=== PATIENT | female | born 1995 | race Caucasian/White ===

== ENCOUNTER 2022-11-01 08:00 | Outpatient (NON) | payer OTHER, SELFPAY | END 2022-11-01 08:01 | disposition home or self-care (01) | LOC: ANHLAB 11-02 07:31 | PROVIDERS: PCP Physician Assistant; Visit Provider Internal Medicine Gastroenterology | DX: K59.00 Constipation, unspecified (principal); K63.5 Polyp of colon | CPT/HCPCS: 88305 ==

== ENCOUNTER 2022-11-01 10:59 | Day surgery (SDC) | payer OTHER, SELFPAY ==
[2022-08-16 09:43] VITALS: BMI 32.9
[2022-10-17 09:44] VITALS: BMI 33.5
--- NOTE | 2022-10-31 08:44 | P.PNAN_ITS ---
Anes - Initial Pre Proc Eval Procedure: Operation Date: 11/01/22 12:30 Proposed Procedures p Diagnostic Colonoscopy - Mushtaq Ridley MD Date/Time: 10/31/22 08:44 Surgeon: Mushtaq Ridley MD Pre Op Diagnosis: Constipation Patient Data Age: 27 Gender: F Height: 1.6 m Weight: 86 kg Allergies Allergy/AdvReac Type Severity Reaction Status Date / Time No Known Allergies Allergy Verified 11/01/22 11:13 Home Medications Medication Instructions Recorded Confirmed Type atorvastatin 10 mg tablet 10 mg PO DAILY 10/17/22 11/01/22 History fluoxetine 20 mg capsule 20 mg PO DAILY 10/17/22 11/01/22 History levonorgestrel 0.15 mg-ethinyl 1 tablet PO DAILY 10/17/22 11/01/22 History estradiol 30 mcg tablets,3 mos pack(91) spironolactone 100 mg tablet 100 mg PO DAILY 10/17/22 11/01/22 History Patient hx anesthesia problems: none Family hx anesthesia problems: none Results Review: All pre-operative results and documents have been reviewed as part of the pre-operative evaluation. [facility] Past Medical History Medical History Depression Hyperlipidemia Social History Social History Smoking status: Never smoker Alcohol intake: current Substance use: never Substance use type: does not use Living arrangements: with family Spiritual care concerns: No Anes - Eval Final PreProcedure Day of Procedure 10/31/22 08:44 Patient weight: obese Heart: regular rate and rhythm Lungs: clear to auscultation Airway: Mallampati scale class II Neurological: alert and oriented Last oral intake: >/= 8 hours ASA classification: II Emergent: no Anesthetic plan: proceed Anesthesia type and monitoring: general GIVS and standard monitoring Results Review: All pre-operative results and documents have been reviewed as part of the pre- operative evaluation. Informed Consent: The patient's anesthetic plan and its attendant risks and benefits were discussed with the patient/family/POA. Questions were solicited and answers provided to the satisfaction of the patient/family/POA.
[2022-11-01 11:26] VITALS: BP 133/91; PULSE 104; RESP 18; TEMP 36.2; O2SAT 97; BMI 33.0
[2022-11-01] MEDS: LACTATED RINGERS 1,000 ML 150 ML IV CONT (11:51)
--- NOTE | 2022-11-01 12:03 | PM.HPGS ---
History of Present Illness History of Present Illness Consent: Risks, benefits, and alternatives have been discussed and questions answered. Patient agrees to proceed with procedure. Chief complaint: Constipation Narrative: Maddie Renee is a 27 year old female Was been having a great deal of difficulty with her bowels. Because of severe constipation she was taking MiraLax which did not help. She was then given Linzess, but that caused diarrhea. More recently she has been started on Trulance. Breakfast usually consists of a waffle or sometimes an omelet. Review of Systems Review of Systems: All systems reviewed & are unremarkable except as noted in HPI and below PMFSH Past Medical History Medical History Depression Hyperlipidemia Social History Social History Smoking status: Never smoker Alcohol intake: current Substance use: never Substance use type: does not use Living arrangements: with family Spiritual care concerns: No Meds Home Medications and Allergies Home Medications Medication Instructions Recorded Confirmed Type atorvastatin 10 mg tablet 10 mg PO DAILY 10/17/22 11/01/22 History fluoxetine 20 mg capsule 20 mg PO DAILY 10/17/22 11/01/22 History levonorgestrel 0.15 mg-ethinyl 1 tablet PO DAILY 10/17/22 11/01/22 History estradiol 30 mcg tablets,3 mos pack(91) spironolactone 100 mg tablet 100 mg PO DAILY 10/17/22 11/01/22 History Allergies Allergy/AdvReac Type Severity Reaction Status Date / Time No Known Allergies Allergy Verified 11/01/22 11:13 Vital Signs Vital Signs - 24 hr 11/01/22 11:26 Temperature 36.2 C L Pulse Rate 104 H Respiratory Rate 18 Blood Pressure 133/91 H Pulse Oximetry 97 Oxygen Delivery Room Air Exam Const: General: alert Orientation/consciousness: patient oriented x3 Resp: Auscultation: clear to auscultation bilaterally Cardio: Rhythm: regular rhythm GI: GI Palp: Yes Soft to palpation and No Tenderness to palpation present (GI) Neuro: General: patient oriented x3 Assessment and Plan Assessment and plan (1) Constipation: Code(s): K59.00 - Constipation, unspecified Status: Acute Assessment and Plan: Colonoscopy with possible biopsy or polypectomy or cautery or injection of substances.
[2022-11-01 12:46] VITALS: BP 103/82; PULSE 79; RESP 16; O2SAT 100
[2022-11-01 12:56] VITALS: BP 115/77; PULSE 67; RESP 16; O2SAT 100
--- NOTE | 2022-11-01 13:04 | SUR.PHASEII ---
PT AWAKE AND ALERT. DRINKING WATER.
[2022-11-01 13:06] VITALS: BP 102/76; PULSE 65; RESP 16; O2SAT 100
--- NOTE | 2022-11-01 13:43 | WPDANESPN ---
Anes - Prog Note Post-Op Date/Time: 11/01/22 13:43 Cardiovascular status: normal Respiratory status: normal Airway patency: baseline Mental status: baseline Post-Op hydration status: normal Vital Signs: Last Vital Signs Temp 36.2 C L 11/01/22 11:26 Pulse 65 11/01/22 13:06 Resp 16 11/01/22 13:06 BP 102/76 11/01/22 13:06 Pulse Ox 100 11/01/22 13:06 O2 Del Method Room Air 11/01/22 13:06 Pain Score (VAS): 0 I/O: Intake & Output 10/31/22 11/01/22 11/01/22 23:59 07:59 15:59 Intake Total 600 Balance 600 Post-procedural complaints: none Patient Feedback: Patient satisfied with anesthetic care. Other Findings: Patient vital signs back to baseline. Patient denies nausea and vomiting. Patient's pain under control. Patient OK for discharge.
== END 2022-11-01 13:10 | disposition home or self-care (01) ==
PROVIDERS: PCP Physician Assistant; Visit Provider Internal Medicine Gastroenterology
PROC: 0DJD8ZZ Inspection of Lower Intestinal Tract, Via Natural or Artificial Opening Endoscopic (ICD-10-PCS; CPT 45378; principal; 2022-11-01 12:30)
DX: K59.00 Constipation, unspecified (principal)
CPT/HCPCS: 45380

== ENCOUNTER 2023-02-17 12:19 | Emergency (ER) | payer OTHER, SELFPAY ==
--- NOTE | 2023-02-17 12:30 | ED.ANIMALBIT ---
HPI - Animal Bite General Chief Complaint: Animal Bite Stated Complaint: Dog Bite Time Seen by Provider: 02/17/23 13:41 Source: patient and RN notes reviewed Mode of arrival: ambulatory Limitations: no limitations History of Present Illness HPI narrative: 27-year-old female presents with concern for dog bite. Reports her mom's dog bit her on her right 1st digit on Saturday. She reports the area has become tender, red, swollen, painful to bend. She reports she had a small amount of purulent drainage from it today. MD complaint: animal bite Related Data Home Medications Medication Instructions Recorded Confirmed atorvastatin 10 mg tablet 10 mg PO DAILY 10/17/22 02/17/23 fluoxetine 20 mg capsule 20 mg PO DAILY 10/17/22 02/17/23 levonorgestrel 0.15 mg-ethinyl 1 tablet PO DAILY 10/17/22 02/17/23 estradiol 30 mcg tablets,3 mos pack(91) spironolactone 100 mg tablet 100 mg PO DAILY 10/17/22 02/17/23 Allergies Allergy/AdvReac Type Severity Reaction Status Date / Time No Known Allergies Allergy Verified 02/17/23 12:59 Review of Systems Review of Systems: CONSTITUTIONAL: Denies malaise, chills, sweats, or fever. RESPIRATORY: Denies cough or dyspnea. SKIN: Reports puncture wound from dog bite to the 1st digit of the right hand with redness, swelling, tenderness MUSCULOSKELETAL: Reports pain in the 1st digit of the right hand All systems reviewed & are unremarkable except as noted in HPI and below PMFSH Past Medical History Medical History Depression Hyperlipidemia Social History Social History Smoking status: Never smoker Alcohol intake: current Substance use: never Substance use type: does not use Living arrangements: with family Spiritual care concerns: No Comments At time of signature, agree with nursing past medical, surgical, social and family history. There is no relevant family history pertinent to the presenting complaint Exam Narrative: GENERAL: Well-appearing, well-nourished, and in no acute distress. HEAD: Normocephalic, atraumatic. EYES: PERRLA, conjunctivae clear ENT: Mucous membranes moist. NECK: Supple. No lymphadenopathy CHEST: Clear to auscultation. No respiratory distress. HEART: Regular rate and rhythm. SKIN: Warm, dry. Puncture wound noted to the dorsal aspect and the palmar aspect of the 1st digit of the right hand with surrounding erythema, edema, mild induration, no discharge noted NEURO: Alert and oriented x3. PSYCH: Normal mood and affect Course Course Emergency Course: Patient is aware of diagnosis, understands and agrees to treatment plan. Anticipatory guidance given. Patient agrees to follow-up as directed and is aware of reasons to seek care at the emergency department. Portions of this record may have been created with voice recognition software Level of Care: Express Care Visit Vital Signs Vital signs: Vital Signs Temperature 98.8 F 02/17/23 13:03 Pulse Rate 94 02/17/23 13:03 Respiratory Rate 18 02/17/23 13:03 Blood Pressure 124/84 02/17/23 13:03 Pulse Oximetry 98 02/17/23 13:03 Oxygen Delivery Room Air 02/17/23 13:03 Temperature 98.8 F 02/17/23 13:03 Pulse Rate 94 02/17/23 13:03 Respiratory Rate 18 02/17/23 13:03 Blood Pressure 124/84 02/17/23 13:03 Pulse Oximetry 98 02/17/23 13:03 Oxygen Delivery Room Air 02/17/23 13:03 Reviewed. MDM - Animal Bite MDM Narrative Medical decision making narrative: Exam findings show no acute concerns or changes; patient is non-toxic appearing and is in no distress. Patient is appropriate for outpatient treatment and follow-up. Differential Diagnosis Differential diagnosis: Likely dog bite and rabies contact Critical Care Time Critical Care Time Critical Care Time: No Discharge Plan Discharge Clinical Impression: Dog bite of right hand with infection
[2023-02-17 13:03] VITALS: BP 124/84; PULSE 94; RESP 18; TEMP 37.1; O2SAT 98
== END 2023-02-17 13:52 | disposition home or self-care (01) ==
PROVIDERS: Emergency Provider Nurse Practitioner; PCP Physician Assistant
DX: S61.051A Open bite of right thumb without damage to nail, initial encounter (principal); L08.9 Local infection of the skin and subcutaneous tissue, unspecified; W54.0XXA Bitten by dog, initial encounter; F32.A Depression, unspecified; E78.5 Hyperlipidemia, unspecified
CPT/HCPCS: 99213; G0463

== ENCOUNTER 2023-09-12 15:58 | Emergency (ER) | payer OTHER, SELFPAY ==
--- NOTE | 2023-09-12 16:06 | ED.URI ---
HPI - URI/Sore Throat General Chief Complaint: Upper Respiratory Infection Stated Complaint: cough,upper back pain Time Seen by Provider: 09/12/23 16:15 Source: patient, RN notes reviewed and old records reviewed Mode of arrival: ambulatory Limitations: no limitations History of Present Illness HPI Narrative: 27-year-old female presents to the [facility] with cough x2 weeks. States she had a coughing fit yesterday and comes pain Denies fevers, chest pain. Denies States that she has tried several [id number] products with no relief. Related Data Home Medications Medication Instructions Recorded Confirmed atorvastatin 10 mg tablet 10 mg PO DAILY 10/17/22 09/12/23 fluoxetine 20 mg capsule 20 mg PO DAILY 10/17/22 09/12/23 levonorgestrel 0.15 mg-ethinyl 1 tablet PO DAILY 10/17/22 09/12/23 estradiol 30 mcg tablets,3 mos pack(91) spironolactone 100 mg tablet 100 mg PO DAILY 10/17/22 09/12/23 Allergies Allergy/AdvReac Type Severity Reaction Status Date / Time No Known Allergies Allergy Verified 02/17/23 12:59 Review of Systems Review of Systems: All systems reviewed & are unremarkable except as noted in HPI and below Constitutional: Constitutional: Reports no additional constitutional complaints Eyes: Eyes: Reports no additional eye complaints ENT: Reports system reviewed and no additional complaints, except as documented Cardiovascular: Cardiovascular: Reports no additional cardiovascular complaints, Denies chest pain and Denies dyspnea Respiratory: Respiratory: Reports as per HPI, Denies chest congestion, Reports cough and Denies dyspnea Gastrointestinal: Gastrointestinal: Reports no additional gastrointestinal complaints, Denies abdominal pain, Denies nausea and Denies vomiting Musculoskeletal: Musculoskeletal: Reports no additional musculoskeletal complaints Integumentary/Breasts: Skin/Breast: Reports system reviewed and no additional complaints, except as docu Neurologic: Reports system reviewed and no additional complaints, except as documented Psychiatric: Psychiatric: Reports no additional psychiatric complaints Allergic/Immunologic: Allergic/Immunologic: Reports no additional allergic/immunologic complaints PMFSH Past Medical History Medical History Depression Hyperlipidemia Social History Social History Smoking status: Never smoker Alcohol intake: current Substance use: never Substance use type: does not use Living arrangements: with family Spiritual care concerns: No Comments At the time of my signature, I reviewed and agree with the nursing past medical, surgical, social, and family history. There is no relevant family history pertinent to the patient complaint. Exam Const: General: cooperative, healthy appearing, comfortable, no acute distress, well developed, alert and well nourished Nutritional Appearance: well nourished and obese Orientation/consciousness: patient oriented x3 Limitations: no limitations HENMT: Head: normal to inspection Ears: hearing grossly normal bilaterally, external ears normal, TM's normal bilaterally, EAC's normal, mastoids normal and no periauricular adenopathy Face/Nose/Sinus: Normal external nose present, Normal nares present, Normal nasal mucous membranes and turbinates present, normal facial exam and face symmetric Face and sinus: normal facial exam and face symmetric Mouth: Yes Normal oral and palatal mucosa present, Yes lip normal and Yes moist mucous membranes Throat: posterior oropharynx normal, uvula midline and postnasal drainage Eyes: General: appearance normal, both eyes and all related structures Alignment and Position: alignment normal Periorbital: periorbital findings normal Pupils: Equal, round and reactive pupils present EOM: EOMs intact bilaterally Neck: Neck: normal visual inspection, full ROM, no lymphadenopa
[2023-09-12 16:18] VITALS: BP 133/87; PULSE 110; RESP 16; TEMP 37.3; O2SAT 99
== END 2023-09-12 16:44 | disposition home or self-care (01) ==
PROVIDERS: Emergency Provider Nurse Practitioner; PCP Physician Assistant
DX: J40 Bronchitis, not specified as acute or chronic (principal); E78.5 Hyperlipidemia, unspecified; Z79.899 Other long term (current) drug therapy
CPT/HCPCS: 99211; G0463

== ENCOUNTER 2023-12-07 10:01 | Emergency (ER) | payer OTHER, SELFPAY ==
[2023-12-07 10:20] VITALS: BP 127/90; PULSE 101; RESP 16; TEMP 36.4; O2SAT 100
--- NOTE | 2023-12-07 10:23 | ED.GENADULT ---
HPI - General Adult General Chief complaint: Upper Respiratory Infection Stated complaint: Sore Throat Time Seen by Provider: 12/07/23 10:24 28-year-old female patient presents to the [facility] with complaints of a sore throat, fevers, body aches and chills, nausea for the past 3 days. Patient states that she has been alternating Tylenol ibuprofen for fevers and body aches so is feeling all okay right now. Patient states that she did take a COVID test this morning and was negative. Source: patient Mode of arrival: ambulatory Limitations: no limitations Related Data Home Medications Medication Instructions Recorded Confirmed atorvastatin 10 mg tablet 10 mg PO DAILY 10/17/22 12/07/23 fluoxetine 20 mg capsule 20 mg PO DAILY 10/17/22 12/07/23 levonorgestrel 0.15 mg-ethinyl 1 tablet PO DAILY 10/17/22 12/07/23 estradiol 30 mcg tablets,3 mos pack(91) spironolactone 100 mg tablet 100 mg PO DAILY 10/17/22 12/07/23 Allergies Allergy/AdvReac Type Severity Reaction Status Date / Time No Known Allergies Allergy Verified 12/07/23 10:03 Review of Systems Review of Systems: CONSTITUTIONAL: Positive fever, chills, denies sweats. EYES: Denies visual changes, redness, or discharge. ENT: Denies rhinorrhea, congestion, positive sore throat, denies otalgia. CARDIOVASCULAR: Denies chest pain, palpitations, or edema. RESPIRATORY: Denies cough or dyspnea. GASTROINTESTINAL: Denies abdominal pain, positive nausea, denies vomiting, or diarrhea. GENITOURINARY: Denies dysuria or hematuria. SKIN: Denies rash or itching. MUSCULOSKELETAL: Denies back pain, joint pain, or myalgia. NEUROLOGIC: Denies headache, numbness, or weakness. PSYCHIATRIC: Denies anxiety or depression. [facility], [facility] Past Medical History Medical History Depression Hyperlipidemia Social History Social History Smoking status: Never smoker Alcohol intake: current Substance use: never Substance use type: does not use Living arrangements: with family Spiritual care concerns: No Comments At the time of my signature I agree with nursing past medical history, surgical, social, and family history. There is no relevant family history pertinent to the presenting complaint. Exam Narrative: GENERAL: Well-appearing, well-nourished, and in no acute distress. HEAD: Normocephalic, atraumatic. EYES: PERRLA and EOMI. ENT: Nares with erythema edema noted bilaterally, no rhinorrhea or epistaxis. Mucous membranes moist. Posterior pharynx with no tonsillar enlargement, erythema or lesions present. NECK: Supple. No lymphadenopathy CHEST: Clear to auscultation. No respiratory distress. Patient able talk clear complete sentences. HEART: Regular rate and rhythm. No murmur heard. Normal peripheral pulses. ABDOMEN: Soft, nontender, nondistended, normal active bowel sounds. EXTREMITIES: Normal range of motion. No edema. SKIN: Warm, dry, no rash. NEURO: No focal deficits. Alert and oriented x3. Course Course Level of Care: Express Care Visit Reevaluation(s) Reevaluation #1: Re-evaluated patient notify her that she has tested negative for COVID, influenza and strep today. Discussed with her she does have some type of virus and recommend that she treat her symptoms symptomatic Aurea with [id number] Tylenol, Motrin, hot tea and honey, warm salt water gargles as needed. Patient verbalized understanding denies any other questions or concerns at this time. Date: 12/07/23 Time: 10:52 Vital Signs Vital signs: Vital Signs Temperature 36.4 C 12/07/23 10:20 Pulse Rate 101 H 12/07/23 10:20 Respiratory Rate 16 12/07/23 10:20 Blood Pressure 127/90 12/07/23 10:20 Pulse Oximetry 100 12/07/23 10:20 Oxygen Delivery Room Air 12/07/23 10:20 Temperature 36.4 C 12/07/23 10:20 Pulse Rate 101 H 12/07/23 10:20 Respiratory Rate 16 12/07/23 10:
== END 2023-12-07 10:55 | disposition home or self-care (01) ==
PROVIDERS: Emergency Provider Nurse Practitioner Family; PCP Physician Assistant
DX: J06.9 Acute upper respiratory infection, unspecified (principal); J02.9 Acute pharyngitis, unspecified; Z20.822 Contact with and (suspected) exposure to COVID-19; E78.5 Hyperlipidemia, unspecified; F32.A Depression, unspecified
CPT/HCPCS: 87081; 87426; 87804; 87880; 99213; G0463

== ENCOUNTER 2024-02-20 07:28 | Outpatient (CLI) | payer OTHER, SELFPAY ==
--- NOTE | ~2024-02-20 | US_ITS ---
US abdomen complete EXAMINATION: US Abdomen Complete INDICATION: Abdomen pain. PROCEDURE: Realtime High Resolution abdomen ultrasound. COMPARISON: No prior studies for comparison FINDINGS: Gallbladder within normal limits. No gallstones, pericholecystic fluid, gallbladder wall t hickening or biliary dilatation. Common bile duct measures 3 mm. Liver echotexture is increased, consistent with fatty infiltration. . There is a complex 4.3 cm hypoe choic mass of the left hepatic lobe... Pancreas within normal limits. Pancreatic tail is obscured b y bowel gas. Spleen is unremarkeable. Renal echotexture is within normal limits bilaterally without hydronephrosis, contour deforming mass or renal stone. Right kidney measures 10.3 cm. Left kidney valarie sures 10.1 cm. Visualized aspects of the aorta and IVC are within normal limits. Portal vein is patent. No sonograph ic Barron's sign indicated by the technologist. IMPRESSION: 1: Irregular shaped hypoechoic 4.3 cm liver mass. Recommend correlation with CT or MRI without and wi th contrast. 2: Fatty infiltration of the liver. Reviewed, dictated and finalized at location A. IMPRESSION: 1: Irregular shaped hypoechoic 4.3 cm liver mass. Recommend correlation with CT or MRI without and with contrast. 2: Fatty infiltration of the liver.
--- NOTE | ~2024-02-20 | XR_ITS ---
EXAMINATION: XR UGIAC wo kub DATE: 02/20/2024 08:50 INDICATION: Upper abdominal pain TECHNIQUE: The patient drank thick barium, gas-producing crystals, and thin barium. A total of 559 fl uoroscopic images of the esophagus, stomach, and proximal small bowel were obtained. Fluoroscopy expo sure time was 1.7 minutes. COMPARISON: None. FINDINGS: The esophagus is normal without mass or stricture. Esophageal motility is normal. There is no hiatal hernia. There was no gastroesophageal reflux with provocative maneuvers. The stomach and pr oximal small bowel are normal. IMPRESSION: 1. Normal upper GI study. Reviewed, dictated and finalized at location A. IMPRESSION: 1. Normal upper GI study.
== END 2024-02-20 07:29 | disposition home or self-care (01) ==
PROVIDERS: PCP Physician Assistant; Visit Provider Physician Assistant
DX: K21.9 Gastro-esophageal reflux disease without esophagitis (principal); R10.10 Upper abdominal pain, unspecified; R16.0 Hepatomegaly, not elsewhere classified; K76.0 Fatty (change of) liver, not elsewhere classified
CPT/HCPCS: 74246; 76700

== ENCOUNTER 2024-08-05 03:07 | Emergency (ER) | payer OTHER, SELFPAY ==
--- NOTE | ~2024-08-05 | CT_ITS ---
CT of the Abdomen and Pelvis: Indication: Abdominal pain Technique: 2.5 mm axial scans were obtained through the abdomen and pelvis following intravenous adm inistration of 100 cc of Omnipaque 350. Dose reduction technique was used on this scan by utilizing a utomated exposure control and iterative reconstruction technique. The dose-length product (DLP) was 8 41.53 mGy-cm. Findings: Scans through the lung bases are unremarkable. There is a 1.3 cm subtle enhancing mass in the anterior, superior liver (axial image 18). There is si milar subtle 2.6 cm enhancing lesion in the right hepatic lobe (axial image 46). The spleen, pancreas , gallbladder, adrenals and kidneys are within normal limits. No evidence of aortic aneurysm. No ly mphadenopathy. No bowel obstruction or bowel wall thickening. There is no evidence to suggest acute appendicitis. Images through the pelvis were performed. Urinary bladder unremarkable. No pelvic mass seen. No ascit es. Impression: Enhancing hepatic masses, as above. Though nonspecific, patient age and imaging characteristics sugge st benign lesions such as FNH or adenomas. Follow-up nonemergent pre and postcontrast hepatic MR jp mmended to further characterize these lesions. No other significant findings. Reviewed, dictated and finalized at location M. Impression: Enhancing hepatic masses, as above. Though nonspecific, patient age and imaging characteristics suggest benign lesions such as FNH or adenomas. Follow-up none mergent pre and postcontrast hepatic MR recommended to further characterize the se lesions. No other significant findings.
[2024-08-05 03:08] VITALS: BP 116/86; PULSE 126; RESP 18; TEMP 37; O2SAT 98
[2024-08-05 05:08] VITALS: BP 125/76; PULSE 98; RESP 19; O2SAT 100
--- NOTE | 2024-08-05 05:09 | PC.NURSE ---
pt states she became nauseous around 1500 yesterday afternoon and around 1900 last night started vomiting and has had n/v/v and upper abdominal pain since. Pt states she has not been able to keep any solids or liquids down and that she took pepto bismol with no relief
[2024-08-05 05:16] VITALS: BP 121/88; PULSE 103; RESP 21; O2SAT 98
--- NOTE | 2024-08-05 05:26 | ED.GENADULT ---
HPI - General Adult General Chief complaint: Nausea/Vomiting/Diarrhea Stated complaint: vomiting Time Seen by Provider: 08/05/24 05:05 History of Present Illness HPI narrative: Patient is a 28-year-old female who presents emergency department with chief complaint of nausea vomiting and diarrhea. Patient reports around 330 in the afternoon she started having nausea vomiting reports she has had multiple bouts of diarrhea as well. The patient states she has some discomfort in her abdomen reports the left lower quadrant. Patient denies blood in the stool denies blood in the vomitus. The patient does report that she has had some spots on her liver that she seen hepatology for over at [facility] but reports that they believe that these were secondary to her oral contraceptive and reports that she is in the process of changing her oral contraceptive. Patient denies fever Related Data Home Medications Medication Instructions Recorded Confirmed atorvastatin 10 mg tablet 10 mg PO DAILY 10/17/22 12/07/23 fluoxetine 20 mg capsule 20 mg PO DAILY 10/17/22 12/07/23 levonorgestrel 0.15 mg-ethinyl 1 tablet PO DAILY 10/17/22 12/07/23 estradiol 30 mcg tablets,3 mos pack(91) spironolactone 100 mg tablet 100 mg PO DAILY 10/17/22 12/07/23 Allergies Allergy/AdvReac Type Severity Reaction Status Date / Time No Known Allergies Allergy Verified 08/05/24 03:07 Review of Systems Review of Systems: A 10 system review of systems was completed on the patient and is negative except for what is stated in the HPI. Nursing and ancillary documentation was reviewed. PMFSH Past Medical History Medical History Depression Hyperlipidemia Social History Social History Smoking status: Never smoker Alcohol intake: current Substance use: never Substance use type: does not use Living arrangements: with family Spiritual care concerns: No Exam Narrative: GENERAL: Well-appearing, well-nourished, and in no acute distress. HEAD: Normocephalic, atraumatic. EYES: PERRLA and EOMI. ENT: Nares clear, no rhinorrhea or epistaxis. Mucous membranes moist. NECK: Supple. CHEST: Clear to auscultation. No respiratory distress. HEART: Regular rate and rhythm. No murmur heard. Normal peripheral pulses. ABDOMEN: Soft, tenderness to palpation left lower quadrant, nondistended, normal active bowel sounds. EXTREMITIES: Normal range of motion. No edema. SKIN: Warm, dry, no rash. NEURO: No focal deficits. Alert and oriented x3. PSYCH: Normal mood and affect. Course Vital Signs Vital signs: Vital Signs Temperature 37.0 C 08/05/24 03:08 Pulse Rate 126 H 08/05/24 03:08 Respiratory Rate 18 08/05/24 03:08 Blood Pressure 116/86 08/05/24 03:08 Pulse Oximetry 98 08/05/24 03:08 Oxygen Delivery Room Air 08/05/24 03:08 Temperature 37.0 C 08/05/24 03:08 Pulse Rate 90 08/05/24 05:46 Respiratory Rate 18 08/05/24 05:46 Blood Pressure 117/79 08/05/24 05:46 Pulse Oximetry 98 08/05/24 05:46 Oxygen Delivery Room Air 08/05/24 03:08 Medical Decision Making [facility] Narrative Medical decision making narrative: Differential diagnosis includes intra-abdominal infection, gastritis, colitis, bowel obstruction Laboratory studies showed no acute abnormalities. Urinalysis has been obtained is currently pending Patient received IV fluids and antiemetics is feeling much better and is undergoing a p.o. challenge Vital Signs Vital Signs: Vital Signs Temperature 37.0 C 08/05/24 03:08 Pulse Rate 126 H 08/05/24 03:08 Respiratory Rate 18 08/05/24 03:08 Blood Pressure 116/86 08/05/24 03:08 Pulse Oximetry 98 08/05/24 03:08 Oxygen Delivery Room Air 08/05/24 03:08 Temperature 37.0 C 08/05/24 03:08 Pulse Rate 90 08/05/24 05:46 Respiratory Rate 18
[2024-08-05] MEDS: ONDANSETRON INJ 4 MG/2 ML VIAL IV PUSH (05:32)
[2024-08-05] MEDS: SODIUM CHLORIDE 0.9% IV 1,000 ML 999 ML IV CONT (05:32)
[2024-08-05 05:41] LABS: Basophils Percent Auto 0.5 % (0.2-1.2); Eosinophils Percent Auto 0.2 % (0-4.4); Hematocrit 41.7 % (37.0-47.0); Hemoglobin 13.4 g/dL (12.0-15.0); Immature Granulocyte Absolute 0.03 K/mm3 (0.00-0.031); Immature Granulocyte Percent A 0.3 % (0-0.5); Lymphocytes Absolute Auto 0.97 K/mm3 (0.9-3.2); Mean Corpuscular HGB Conc 32.1 g/dl (32-36); Mean Corpuscular Hemoglobin 26.5 pg (26-34); Mean Corpuscular Volume 82.6 fl (80-100); Mean Platelet Volume 9.2 fl (7.4-10.4); Monocytes Absolute Auto 0.5 K/mm3 (0.1-0.6); Monocytes Percent Auto 5.2 % (2.6-8.5); Neutrophils Absolute Auto 7.3 K/mm3 (1.3-6.7); Neutrophils Percent Auto 82.8 % (45.5-73.1); Platelet Count Result 440 k/mm3 (150-375); Red Blood Count 5.05 M/mm3 (4.2-5.4); Red Cell Distribution Width 14.4 % (11.5-14.5); White Blood Count 8.8 K/mm3 (4.5-10.0)
[2024-08-05 05:46] VITALS: BP 117/79; PULSE 90; RESP 18; O2SAT 98
[2024-08-05 05:50] LABS: Alanine Aminotransferase 23 U/L (6-35); Albumin Level 4.3 g/dL (3.5-5.1); Alkaline Phosphatase 117 U/L (38-126); Anion Gap 12 mmol/L (4-12); Aspartate Amino Transferase 30 U/L (14-36); Bilirubin,Total 1.4 mg/dL (0.2-1.3); Blood Urea Nitrogen 11 mg/dL (7-17); Calcium 9.1 mg/dL (8.4-10.2); Carbon Dioxide 23 mmol/L (22-30); Chloride 100 mmol/L (98-107); Estimated CRCL calculation 93 ml/min; Estimated Glomerular Filt Rate > 60; Glucose 113 mg/dL (65-110); Lipase 61 U/L (23-300); Sodium 135 mmol/L (137-145)
--- NOTE | 2024-08-05 06:20 | PC.NURSE ---
Asked pt to provide a urine sample. Pt politely stated she did not have to use the restroom at this time, but would let me know when she needed to.
--- NOTE | 2024-08-05 06:22 | PC.NURSE ---
Pt states she is feeling better, pt denies nausea
[2024-08-05 07:17] LABS: Add Urine Microscopic? NO; Appearance Urine Clear (Clear); Bacteria Urine None Seen /hpf; Bilirubin Urine Negative (Negative); Blood Urine Non-Hemolyzed Trace (Negative); Color Urine Yellow (Yellow); Glucose Urine UA Negative (Negative); Ketones Urine Negative (Negative); Leukocyte Esterase Ur Negative LEU/UL (Negative); Nitrate Urine Negative (Negative); Non Pathogenic Casts 0-2; Protein Urine Negative (Negative); Specific Grav Ur > 1.045 (1.001-1.035); Squamous Epithelial Cell Urine None Seen /hpf (Few); WBC Urine 0-5 /hpf (0-3); pH Urine 6.5 (5.0-9.0)
[2024-08-05 07:33] VITALS: BP 104/84; PULSE 97; RESP 18; O2SAT 100
[2024-08-05 07:49] LABS: BEDSIDEPREGUCG Negative (Negative)
[2024-08-05 08:59] VITALS: BP 110/74; PULSE 88; RESP 18; O2SAT 99
== END 2024-08-05 09:01 | disposition home or self-care (01) ==
PROVIDERS: Emergency Provider Emergency Medicine; PCP Physician Assistant
DX: R11.2 Nausea with vomiting, unspecified (principal); E78.5 Hyperlipidemia, unspecified; F32.A Depression, unspecified; Z79.3 Long term (current) use of hormonal contraceptives; Z79.899 Other long term (current) drug therapy
CPT/HCPCS: 36415; 74177; 80053; 81003; 81025; 83690; 85025; 96361; 96374; 99284; J2405; J7030; Q9967

== ENCOUNTER 2025-03-02 08:42 | Outpatient (CLI) | payer OTHER, SELFPAY ==
--- OUTSIDE RECORDS SUMMARY | 2025-03-02 09:09 | XMS_ITS ---
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 Role Phone Chyna Watts Primary Care Provider Allergies No Known Allergies REASON FOR VISIT 5 week follow up Medications Medication SIG (Take, Route, Frequency, Duration) Notes Start Date End Date Status metFORMIN HCl ER 500 MG 1 tablet with ev ening meal Orally Once a day for 30 day(s) 10/08/2024 Active Unithroid 50 MCG 1 tablet in the morn ing on an empty stomach Orally Once a day for 30 day(s) 10/08/2024 Active FLUoxetine HCl 20 MG 1 tab(s) orally onc e a day Active Slynd 4 MG 1 tab(s) orally once a day Active Atorvastatin Calcium 10 MG 1 tab(s) oral ly once a day Active dexAMETHasone 1 MG 1 tab(s) orally at 1 0 pm night before 8 am cortisol for 1 days 09/03/2024 Active Ergocalciferol 1.25 MG (62642 UT) 1 capsule Orally for 30 day(s) 10/08/2024 Active Pantoprazole Sodium 40 MG 1 tab(s) orall y once a day Active Spironolactone 100 MG 1 tab(s) orally on ce a day Active Vitamin B-12 1000 MCG 1 tab(s) orally on ce a day Active Problems Problem Type SNOMED Code ICD Code Onset Dates Problem Status W/U Status Risk Notes Problem Hypothyroidism (19691955) Hypothyroidism, unspecified (E03.9) Active confirmed Vital Signs Blood pressure systolic 119 mm Hg 10/08/20 24 Blood pressure diastolic 87 mm Hg 024 Heart Rate 89 /min 10/08/2024 Height 63 in 10/08/2024 Weight 197.8 lbs 10/08/2024 BMI 35.03 kg/m2 10/08/2024 SPO2: 99% Encounters Encounter Location Date Provider Diagnosis [facility], [facility] - Chyna Watts [address] [place] [address] 10/08/2024 Chyna Watts Vitamin D deficiency , unspecified E55.9 ; Obesity, unspecified E66.9 ; Insulin resistance, unspecified E88.819 ; Prediabetes R73.03 ; Iron deficiency E61.1 and Hypothyroidism, unspecified E03.9 Assessments Encounter Date Diagnosis (ICD Code) Assessment Notes Treatment Notes Treatment Clinical Notes Section Notes 10/08/2024 Vitamin D deficiency, unspecified (ICD-10 - E55.9) 10/08/2024 Obesity, unspecified (ICD-10 - E66.9) 10/08/2024 Insulin resistance, unspecified (ICD-10 - E88.819) 10/08/2024 Prediabetes (ICD-10 - R73.03) 10/08/2024 Iron deficiency (ICD-10 - E61.1) 10/08/2024 Hypothyroidism, unspecified (ICD-10 - E03.9) 10/08/2024 Other Assessment and Plan: 1. Insulin resistance and prediabetes- A1c 5.7, fasting sugar 80Plan:- Start low-dose metformin with the largest meal- Monitor blood glucose levels and A1c- Encourage lifestyle modifications, including diet and exercise 2. 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 Vitamin D deficiencyPlan:- Start 50,000 IU vitamin D supplementation once a week through the winter- Lower daily dose in the summer- Monitor vitamin D levels 4. Thyroid function and possible early hypothyroidism- Normal TSH, low free T4Plan:- Discuss options for thyroid support supplement or thyroid replacement medication (Synthroid or Unithroid)- Consider trying an AIP diet, gluten-free, and lactose-free- Follow up in no more than two months to monitor thyroid function 5. Iron deficiencyPlan:- Encourage iron-rich diet- Consider iron-containing multivitamin if necessary 6. Slightly low magnesium levelsPlan:- Recommend magnesium supplementation- Monitor magnesium levels 7. Sleep disturbancesPlan:- Address possible underlying causes, such as cortisol and thyroid issues- Encourage good sleep hygiene practices 8. Fatty liver disease- Slightly elevated liver enzymesPlan:- Address possible contributing factors, such as insulin resistance and low thyroid function- Encourage lifestyle modifications, including diet and exercise 9. Labs and follow-upPlan:- Order fasting blood work, dexamethasone test, urine cortisol test, and saliva cortisol test- Follow up in no more than two months to monitor progress, weight loss, and cortisol levels Spent 25 minutes preparing to see the patient (ex review of tests/chart), obtaining and / or reviewing separately obtained history, performing a medically appropriate examination and/or evaluation, counseling and educating the patient/family/direct care provider, ordering medications, tests, or procedures, referring and communicating with other health resident care director, documenting clinical information in the electronic or other health record, independently interpreting results and communicating results to the patient/family/direct care provider and care coordinating patient plan. Patient alert and oriented x 4 and aware of discussion noted above and in agreeance to plan in management of hypothyroidism, insulin resistance,prediabe nestor, obesity/weight management, vit D def and MICHAEL. Plan Of Treatment Medication Medication Name Sig Start Date Stop Date Notes metFORMIN HCl ER 500 MG 1 tablet with ev ening meal Orally Once a day for 30 day(s) 10/08/2024 Unithroid 50 MCG 1 tablet in the morn ing on an empty stomach Orally Once a day for 30 day(s) 10/08/2024 Ergocalciferol 1.25 MG (41078 UT) 1 caps ule Orally for 30 day(s) 10/08/2024 Treatment Notes Assessment Notes Other Assessment and Plan: 1. Insulin resistance and prediabetes- A1c 5.7, fasting sugar 80Plan:- Start low-dose metformin with the largest meal- Monitor blood glucose levels and A1c- Encourage lifestyle modifications, including diet and exercise 2. 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 Vitamin D deficiencyPlan:- Start 50,000 IU vitamin D supplementation once a week through the winter- Lower daily dose in the summer- Monitor vitamin D levels 4. Thyroid function and possible early hypothyroidism- Normal TSH, low free T4Plan:- Discuss options for thyroid support supplement or thyroid replacement medication (Synthroid or Unithroid)- Consider trying an AIP diet, gluten-free, and lactose-free- Follow up in no more than two months to monitor thyroid function 5. Iron deficiencyPlan:- Encourage iron-rich diet- Consider iron-containing multivitamin if necessary 6. Slightly low magnesium levelsPlan:- Recommend magnesium supplementation- Monitor magnesium levels 7. Sleep disturbancesPlan:- Address possible underlying causes, such as cortisol and thyroid issues- Encourage good sleep hygiene practices 8. Fatty liver disease- Slightly elevated liver enzymesPlan:- Address possible contributing factors, such as insulin resistance and low thyroid function- Encourage lifestyle modifications, including diet and exercise 9. Labs and follow-upPlan:- Order fasting blood work, dexamethasone test, urine cortisol test, and saliva cortisol test- Follow up in no more than two months to monitor progress, weight loss, and cortisol levels Spent 25 minutes preparing to see the patient (ex review of tests/chart), obtaining and / or reviewing separately obtained history, performing a medically appropriate examination and/or evaluation, counseling and educating the patient/family/caregiver, ordering medications, tests, or procedures, referring and communicating with other health resident care director, documenting clinical information in the electronic or other health record, independently interpreting results and communicating results to the patient/family/caregiver and care coordinating patient plan. Patient alert and oriented x 4 and aware of discussion noted above and in agreeance to plan in management of hypothyroidism, insulin resistance,prediabetes, obesity/weight management, vit D def and MICHAEL. Next Appt Details Follow Up: 3 Months, Reason: labwork Progress Notes * Maddie RENEEDOB: [birth year] (29 yo F)Acc No.[id number]:10/08/2024 Progress Notes Patient: Maddie CANO Provider: Patt Watts MD :1995 A ge:29 Y S ex:Female Date:10/08/2024 Address:[address] [place] [address] Subjective: * Chief Complaints: * 1 . 5 week follow up. * HPI: I nterval Hx: 29 yo female comes in today for follow up in management of obesity, prediabetes/insulin resistance, vit D def, iron def anemia and concern for hypercortisolism. Maddie reports experiencing sleep disturbances, increased sensitivity to pain, and fatigue. She has a history of low vitamin D levels and type 2 diabetes, previously experiencing diarrhea with metformin. Recent labs indicate insulin resistance, low vitamin D, early signs of hypothyroidism, iron deficiency, slightly low magnesium, and slightly elevated liver enzymes suggesting fatty liver disease. A cortisol test showed high-end alberto zone results, necessitating retesting. The plan includes starting metformin, vitamin D supplementation, monitoring thyroid function, and addressing iron and magnesium deficiencies. Follow-up is scheduled in two months. The patient, Maddie, reports experiencing sleep disturbances, as she has been waking up in the middle of the night more frequently than before. She also mentions increased sensitivity to pain, such as when being pressed or bumped. Maddie has a history of low vitamin D levels, which may contribute to immune dysfunction and sore bones. She denies having a heavy period since switching her control and reports feeling like she could nap all day long. Maddie has a history of type 2 diabetes and previously experienced constant diarrhea when taking metformin. Diagnostic Test Results and Labs: - Cortisol Test: Performed around September 22, 2024, results were not definitively positive but were high enough to be in the high-end alberto zone, indicating the need for retesting. - Insulin Levels: Elevated, indicating insulin resistance. - Blood Sugar Levels: Elevated but not diagnostic of diabetes; fasting sugar was 80. - Vitamin D: Low levels noted, supplementation recommended. - Testosterone Levels: Not elevated, ruling out PCOS. - Thyroid Function Tests: Normal thyroid function with normal TSH and free T4 levels; however, early signs of hypothyroidism suggested by symptoms and dietary patterns. - Blood Counts: Within normal limits. - Lupus Screen: Negative. - Rheumatoid Factor: Negative. - Hemoglobin A1c: 5.7, consistent with prediabetes. - Liver Enzymes: Slightly elevated, likely indicating fatty liver disease. - Iron Levels: Low, iron deficiency noted. - Cholesterol Levels: HDL 56, LDL 79, within normal limits. - Magnesium Levels: Slightly low at 1.8. * ROS: N EUROLOGY: headache y es. n o t ingling numbness. n o s eizures. n o i nsomnia. n o m katiuska loss. d izziness y es. n o g ait abnormality. n o c hange in sensation anywhere on body. n o l ocalized weakness or numbness. n o b lackouts or near blackouts. n o m igraine. n o t remors.?no f ainting spells. n o h ead injury. n o s troke. O PTHALMOLOGY: no d iminished vision. n o e ye irritation. n o?drainage from eyes. n o b lurring of vision. n o s easonal eye sx. n o?dander related eye sx. n o l oss of vision. n o c ataracts. n o g lasses/contacts. n o g laucoma. n o d etached retina. n o m acular degeneration.?no e ye redness. R ESPIRATORY: shortness of breath y es. n o c hest pain. n o?wheezing. n o a sthma. n o b reathlessness when lying flat. n o p rolonged cough. n o f requent infections (bronchitis). n o e mphysema. n o c hest congestion. n o s leep apnea. A LLERGY: no r unny nose. n o s cratchy throat. n o i tchy eyes. n o e ar fullness. n o s inus congestion. n o s tuffy nose. n o w atery eyes. n o s easonal allergies. n o h ay fever. n o a llergy.?no p olyps. n o s neezing. H EMATOLOGY/LYMPH: no s wollen glands. n o f atigue. n o l oss of appetite. n o e asy bruising. n o e asy bleeding. n o a nemia. ? U ROLOGY: no d ifficulty urinating. n o b lood in urine. n o u rinary urgency. n o f requent urination. n o u rinary incontinence. n o v oiding dysfunction. n o v ulvodynia. n o d ysparaunia. n o r ecurrent UTI. n o w eak flow. n o d ribbling after urination. n o f requent bladder infections. n o k idney stone. n o k idney disease. n o u rine hesitancy.?no p ainful urination. N UTRITION: greater than body requirmemts y es. L ess than body requirements y es. a ppropriate / adequate y es, y es. C ONSTITUTIONAL: no w eight gain. n o l oss of appetite. n o?fever. w eakness y es. n o w eight loss. n ight sweats y es. n o n ausea. n o v isual changes. n o c hange in sleep patterns. h +p reviewed y es, R OS form reviewed with patient see scan for detail. n o c hange in activity capacity. D ERMATOLOGY: no r junito. n o c hange in color of moles. n o?lumps. n o d ry or sensitive skin. n o h cordell. n o o madison skin. n o?acne. n o m oles-irregular. n o m oles-change/new. n o b oils. n o dandruff. n o e xcessive body odor. n o p soriasis. n o f ungal infections. n o n ail problems. n o r edness/inflammation. n o a thlete's foot. n o s kin cancer. n o e czema. E NDOCRINOLOGY: fatigue y es. e xcessive sweating y es. n o?excessive thirst. n o e xcessive urination. n o w eight loss. n o s leep disturbance. n o c old intolerance. h eat intolerence y es. n o t hyroid disease. n o i ncreased loss of hair. n o h x of borderline diabetes. n o d iabetes. n o a bdormal body hair. n o r heumatism. n o c hanges in skin texture.? E NT: no c old. n o c ough. n o c oughing blood.?no n ose bleed. n o h earing loss. n o c hange in voice. n o s ore throat. n o r inging in ears. n o s noring. n o e ar pain. n o r unny nose. n o w atery eyes. n o s inus infection. n o e ar infection. n o facial pain. n o h oarseness. n o g oiter. n o g um problems. n o?postnasal drip. n o f requent nosebleeds. C ARDIOLOGY: no c hest pain. n o p alpitations. n o l eg swelling. n o d izziness. n o s hortness of breath. n o v aricose veins.?no l eg cramps. n o c old hands or feet. n o h igh blood pressure. n o ankle swelling. n o c ardiac catheterization. n o h eart attacks. n o a ngina. n o m urmurs. n o l ow blood pressure. n o l eg pain that resolves w/rest. n o p urple fingers or lips. n o i rregular heart rate. n o c ongenital heart defects. n o d izziness when standing up quickly. n o a wakening at night short of breath. G ASTROENTEROLOGY: no n ausea. h eartburn y es. n o s tool incontinence. n o r eflux. a bdominal pain y es. n o i ndigestion. n o h emorrhoids. n o h iatal hernia. n o u lcers. n o a nal fissures. n o?hepatitis. n o g allstones. n o r ed blood after bowel movements. n o v omiting. n o b loating/belching. n o d ifficulty swallowing. n o d iarrhea.?constipation y es. n o c hange in bowel habits. n o b lood in stool. ? M USCULOSKELETAL: no j oint swelling. j oint pain y es. n o l eg cramps. n o j oint stiffness. n o a rthritis. n o b ack pain. m uscle aches y es. n o m orning stiffness. n o t endinitis. n o n ines pain.?no b ursitis. n o b one marrow biopsy. n o g out. a ctivity intolerance weakness. n o f racture. P SYCHOLOGY: high stress level y es. n o d epression. n o?sleep disturbances. n o r bear sx worse with stress. n o s uicidal ideation. n o e ating disorder. n o m ental or physical abuse. a nxiety y es. n o h eadaches. d isease state y es. F EMALE REPRODUCTIVE: no h eavy periods. n o d ysparaunia. n o s exually active. p remenstrual syndrome y es. n o d ysmenorrhea. n o i nfertility. n o f requent yeast infections. n o v aginal itching. n o i ntermenstrual bleeding. n o p ost coital bleeding. n o p ostmenopausal bleeding. n o p elvic pain. n o m enstral cycle. n o v aginal discharge. n o v aginal dryness. n o o varian cysts. n o f ibroids. n o d ischarge from breast. n o abn. bleeding between cycles. n o p ostmenopausal symptoms. n o l oss of sexual interest. n o p ainful sexual intercourse. n o e ndometriosis. n o v aginal warts. n o a bnormal pap. n o i rregular periods. n o a bnormal vaginal discharge. n o h ot flashes. H igh Cholesterol- Yes. Painful Periods- Yes. * Medical History: C onstipation, Anxiety, Hot flashes, Abdominal pain, Migraines, Body aches, Fatigue, Acid reflux. * Surgical History: w idsom teeth , earlobe surgery . * Hospitalization/Major Diagno stic Procedure: c olonoscopy . * Medications: T aking dexAMETHasone 1 MG Tablet 1 tab(s) orally at 10 pm night before 8 am cortisol , Taking Pantoprazole Sodium 40 MG Tablet Delayed Release 1 tab(s) orally once a day , Taking Spironolactone 100 MG Tablet 1 tab(s) orally once a day , Taking Vitamin B-12 1000 MCG Tablet 1 tab(s) orally once a day , Taking Atorvastatin Calcium 10 MG Tablet 1 tab(s) orally once a day , Taking FLUoxetine HCl 20 MG Tablet 1 tab(s) orally once a day , Taking Slynd(Drospirenone) 4 MG Tablet 1 tab(s) orally once a day , Medication List reviewed and reconciled with the patient * Allergies: N .K.D.A. Objective: * Vitals: H R: 89, BP: 119/87, Ht: 63, Wt: 197.8, BMI: 35.03. SPO2: 99%. * P ast Orders: Lab:CORTISOL, TOTAL * Collection Date 09/22/2024 09/10/2024 Collection Time 08:27 AM 09:01 AM Order Date 09/22/2024 09/10/2024 CORTISOL, TOTAL 1.5 L (Ref Range: mcg/dL) 25.6 H (Ref Range: mcg/dL) ???Lab:DEXAMETHASONE (Order Date - 09/22/2024) (Collection Date & Time - 09/22/2024 08:27 AM)?ValueReference Range?[id number]- ng/dL ???Lab:ACTH, PLASMA (Order Date - 09/10/2024) (Collection Date & Time - 09/10/2024 09:01 AM)?ValueReference Range?ACTH, [id number] - pg/mL ???Lab:TESTOSTERONE, FREE (DIALYSIS) AND TOTAL,MS (Order Date - 09/10/2024) (Collection Date & Time - 09/10/2024 09:01 AM)?ValueReference Range ?TESTOSTERONE, TOTAL, PO623-73 - ng/dL?TESTOSTERONE, FREE3.90.1- 6.4 - pg/mL ???Lab:TSH (Order Date - 09/10/2024) (Collection Date & Time - 09/10/2024 09:01 AM)?ValueReference Range?TSH1.93- mIU/L ???Lab:HEMOGLOBIN A1c (Order Date - 09/10/2024) (Collection Date & Time - 09/10/2024 09:01 AM)?ValueReference Range?HEMOGLOBIN A1c5.7H<5.7 - % of total Hgb ???Lab:PROGESTERONE (Order Date - 09/10/2024) (Collection Date & Time - 09/10/2024 09:01 AM)?ValueReference Range?PROGESTERONE0.7- ng/mL ???Lab:CBC (INCLUDES DIFF/PLT) (Order Date - 09/10/2024) (Collection Date & Time - 09/10/2024 09:01 AM)?ValueReference Range?WHITE BLOOD CELL COUNT 9.33.8-10.8 - Thousand/uL?RED BLOOD CELL COUNT4.743.80-5.10 - Million/uL ?SFXGNBZJSE56.411.7-15.5 - g/dL?UMYIYHIJQZ85.635.0-45.0 - % ?MCV81.480.0-100.0 - fL?MCH26.2L27.0-33.0 - pg?MCHC32.1 32.0-36.0 - g/dL?RDW14.511.0-15.0 - %?PLATELET [id number] - Thousand/uL?RENKMTGUNYA48.8- %?ABSOLUTE [id number] - cells/uL?TWBVNZVKBCH02.1- %?ABSOLUTE WMESBPEOZQZ9111017-6775 - cells/uL?MONOCYTES6.1- %?ABSOLUTE ENELDYZBS072267-615 - cells/uL ?EOSINOPHILS0.5- %?ABSOLUTE RNRYTMRLHXG1156-015 - cells/uL ?BASOPHILS0.5- %?ABSOLUTE BYFOPFTED868-821 - cells/uL?MPV 9.57.5-12.5 - fL ???Lab:ADDIS IFA SCREEN W/REFL TO TITER AND PATTERN, IFA (Order Date - 09/10/2024) (Collection Date & Time - 09/10/2024 09:01 AM)?ValueReference Range ?ADDIS SCREEN, IFANEGATIVENEGATIVE - ???Lab:T4, FREE (Order Date - 09/10/2024) (Collection Date & Time - 09/10/2024 09:01 AM)?ValueReference Range?T4, FREE0.80.8-1.8 - ng/dL ???Lab:COMPREHENSIVE METABOLIC PANEL (Order Date - 09/10/2024) (Collection Date & Time - 09/10/2024 09:01 AM)?ValueReference Range?LAUZHQZ2946-95 - mg/dL?UREA NITROGEN (BUN)127-25 - mg/dL?CREATININE0.820.50-0.96 - mg/dL?BUN/CREATININE RATIOSEE NOTE:6-22 - (calc)?ABTKOO211242- 146 - mmol/L?POTASSIUM4.33.5-5.3 - mmol/L?IJHMJNQJ60165-380 - mmol/L?CARBON PSALSKD6843-11 - mmol/L?CALCIUM9.48.6-10.2 - mg/dL ?PROTEIN, TOTAL6.76.1-8.1 - g/dL?ALBUMIN4.33.6-5.1 - g/dL ?GLOBULIN2.41.9-3.7 - g/dL (calc)?ALBUMIN/GLOBULIN RATIO1.81.0-2.5 - (calc)?BILIRUBIN, TOTAL0.70.2-1.2 - mg/dL?ALKALINE PHOSPHATASE 825W43-528 - U/L?NVH8048-46 - U/L?QXA21M3-98 - U/L?EGFR99> OR = 60 - mL/min/1.73m2 ???Lab:FERRITIN (Order Date - 09/10/2024) (Collection Date & Time - 09/10/2024 09:01 AM)?ValueReference Range?CFAUTVKZ07F85-689 - ng/mL ???Lab:RHEUMATOID FACTOR (Order Date - 09/10/2024) (Collection Date & Time - 09/10/2024 09:01 AM)?ValueReference Range?RHEUMATOID FACTOR<10<14 - IU/mL ???Lab:VITAMIN B12/FOLATE, SERUM PANEL (Order Date - 09/10/2024) (Collection Date & Time - 09/10/2024 09:01 AM)?ValueReference Range?FOLATE, SERUM4.9L- ng/mL?VITAMIN [id number] - pg/mL ???Lab:FSH (Order Date - 09/10/2024) (Collection Date & Time - 09/10/2024 09:01 AM)?ValueReference Range?FSH7.3- mIU/mL ???Lab:IRON AND TOTAL IRON BINDING CAPACITY (Order Date - 09/10/2024) (Collection Date & Time - 09/10/2024 09:01 AM)?ValueReference Range ?IRON, [id number] - mcg/dL?IRON BINDING [id number] - mcg/dL (calc)?% GSVKVSAACL8U77-01 - % (calc) ???Lab:INSULIN (Order Date - 09/10/2024) (Collection Date & Time - 09/10/2024 09:01 AM)?ValueReference Range?OBYUUHG48.0H- uIU/mL ???Lab:PTH, INTACT AND CALCIUM (Order Date 09/10/2024) (Collection Date & Time - 09/10/2024 09:01 AM)?ValueReference Range?CALCIUM9.48.6-10.2 - mg/dL?PARATHYROID HORMONE, [id number] - pg/mL ???Lab:ESTRADIOL (Order - 09/10/2024) (Collection Date & Time - 09/10/2024 09:01 AM)?ValueReference Range?PJLQFVVCS85- pg/mL ???Lab:T3, FREE (Order 09/10/2024) (Collection Date & Time - 09/10/2024 09:01 AM)?ValueReference Range?T3, FREE3.52.3-4.2 - pg/mL ???Lab:SED RATE BY MODIFIED WESTERGREN (Order - 09/10/2024) (Collection Date & Time - 09/10/2024 09:01 AM)?ValueReference Range?SED RATE BY JJEXFQIX36< OR = 20 - mm/h ???Lab:C-REACTIVE PROTEIN (Order - 09/10/2024) (Collection Date & Time - 09/10/2024 09:01 AM)?ValueReference Range?C-REACTIVE FDXRGOX89.8H <8.0 - mg/L ???Lab:LIPID PANEL (Order Date - 09/10/2024) (Collection Date & Time - 09/10/2024 09:01 AM)?ValueReference Range?UVCGNSJBLGPRD72<150 - mg/dL?CHOLESTEROL, MXPOD823<200 - mg/dL?HDL HHMLDMVRZQY91> OR = 50 - mg/dL?LDL-BZRWVHLYLOW97- mg/dL (calc)?CHOL/HDLC RATIO2.7<5.0 - (calc)?NON-HDL GOXBJKTAPIP54<130 - mg/dL (calc) ???Lab:MAGNESIUM (Order Date - 09/10/2024) (Collection Date & Time - 09/10/2024 09:01 AM)?ValueReference Range?MAGNESIUM1.81.5-2.5 - mg/dL ???Lab:VITAMIN D, 25-HYDROXY, LC/MS/MS (Order Date - 09/10/2024) (Collection Date & Time - 09/10/2024 09:01 AM)?ValueReference Range?VITAMIN D, 25-OH, [id number] - ng/mL * Examination: G eneral Examination: General n ormal, NAD, well nourished and hydrated, pleasant obese female. Neck, thyroid : s upple. Heart: B P wnl, RSR, no murmurs. Lungs: n ormal, respirations easy with conversation and ambulation. Abdomen: n ormal, round, non-distended. Neurologic exam: u nremarkable. Extremities: u nremarkable. Peripheral pulses: n ormal (2+) bilaterally . Psych: o rientation to person, place & situation, appropriate judgment noted. Assessment: * Assessment: 1. V itamin D deficiency, unspecified - E55.9 (Primary) 2 . O besity, unspecified - E66.9 3 . I nsulin resistance, unspecified - E88.819 4 . P rediabetes - R73.03 5 . I anita deficiency - E61.1 6 .?Hypothyroidism, unspecified - E03.9 Plan: * Treatment: 2. P rediabetes Start metFORMIN HCl ER Tablet Extended Release 24 Hour, 500 MG, 1 tablet with evening meal, Orally, Once a day, 30 day(s), 30. 3. H ypothyroidism, unspecified Start Unithroid Tablet, 50 MCG, 1 tablet in the morning on an empty stomach, Orally, Once a day, 30 day(s), 30. 4. O thers Notes: Assessment and Plan: 1. Insulin resistance and prediabetes- A1c 5.7, fasting sugar 80Plan:- Start low-dose metformin with the largest meal- Monitor blood glucose levels and A1c- Encourage lifestyle modifications, including diet and exercise 2. 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 Vitamin D deficiencyPlan:- Start 50,000 IU vitamin D supplementation once a week through the winter- Lower daily dose in the summer- Monitor vitamin D levels 4. Thyroid function and possible early hypothyroidism- Normal TSH, low free T4Plan:- Discuss options for thyroid support supplement or thyroid replacement medication (Synthroid or Unithroid)- Consider trying an AIP diet, gluten-free, and lactose-free- Follow up in no more than two months to monitor thyroid function 5. Iron deficiencyPlan:- Encourage iron-rich diet- Consider iron-containing multivitamin if necessary 6. Slightly low magnesium levelsPlan:- Recommend magnesium supplementation- Monitor magnesium levels 7. Sleep disturbancesPlan:- Address possible underlying causes, such as cortisol and thyroid issues- Encourage good sleep hygiene practices 8. Fatty liver disease- Slightly elevated liver enzymesPlan:- Address possible contributing factors, such as insulin resistance and low thyroid function- Encourage lifestyle modifications, including diet and exercise 9. Labs and follow-upPlan:- Order fasting blood work, dexamethasone test, urine cortisol test, and saliva cortisol test- Follow up in no more than two months to monitor progress, weight loss, and cortisol levels Spent 25 minutes preparing to see the patient (ex review of tests/chart), obtaining and / or reviewing separately obtained history, performing a medically appropriate examination and/or evaluation, counseling and educating the patient/family/caregiver, ordering medications, tests, or procedures, referring and communicating with other health resident care director, documenting clinical information in the electronic or other health record, independently interpreting results and communicating results to the patient/family/caregiver and care coordinating patient plan. Patient alert and oriented x 4 and aware of discussion noted above and in agreeance to plan in management of hypothyroidism, insulin resistance,prediabetes, obesity/weight management, vit D def and MICHAEL. * Procedure Codes: 9 9401 P/M VEST FINISHER, INDIV 15 MIN * Follow Up: 3 Months (Reason: labwork) * Billing Information: * Visit Code: 96773 Office Visit, Est Pt., Level 4. * Procedure Codes: 34354 P/M VEST FINISHER, INDIV 15 MIN. * OLOGY PROFESSOR Sign off status: Completed Addendum: * true * Provider: Patt Watts MD Date: 12/09/2023 Generated for Tim kang/Lien/Evgenyitting on: 0 03/02/2025 09:08 AM CDT History and Physical Notes * HPI (History of Present Illness) Category Sub-Category Detail Notes Category Not es Interval Hx 29 yo female comes in today for follow up in management of obesity, prediabetes/insulin resistance, vit D def, iron def anemia and concern for hypercortisolism. Maddie reports experiencing sleep disturbances, increased sensitivity to pain, and fatigue. She has a history of low vitamin D levels and type 2 diabetes, previously experiencing diarrhea with metformin. Recent labs indicate insulin resistance, low vitamin D, early signs of hypothyroidism, iron deficiency, slightly low magnesium, and slightly elevated liver enzymes suggesting fatty liver disease. A cortisol test showed high-end alberto zone results, necessitating retesting. The plan includes starting metformin, vitamin D supplementation, monitoring thyroid function, and addressing iron and magnesium deficiencies. Follow-up is scheduled in two months. The patient, Maddie, reports experiencing sleep disturbances, as she has been waking up in the middle of the night more frequently than before. She also mentions increased sensitivity to pain, such as when being pressed or bumped. Maddie has a history of low vitamin D levels, which may contribute to immune dysfunction and sore bones. She denies having a heavy period since switching her control and reports feeling like she could nap all day long. Maddie has a history of type 2 diabetes and previously experienced constant diarrhea when taking metformin. Diagnostic Test Results and Labs: - Cortisol Test: Performed around September 22, 2024, results were not definitively positive but were high enough to be in the high-end alberto zone, indicating the need for retesting. - Insulin Levels: Elevated, indicating insulin resistance. - Blood Sugar Levels: Elevated but not diagnostic of diabetes; fasting sugar was 80. - Vitamin D: Low levels noted, supplementation recommended. - Testosterone Levels: Not elevated, ruling out PCOS. - Thyroid Function Tests: Normal thyroid function with normal TSH and free T4 levels; however, early signs of hypothyroidism suggested by symptoms and dietary patterns. - Blood Counts: Within normal limits. - Lupus Screen: Negative. - Rheumatoid Factor: Negative. - Hemoglobin A1c: 5.7, consistent with prediabetes. - Liver Enzymes: Slightly elevated, likely indicating fatty liver disease. - Iron Levels: Low, iron deficiency noted. - Cholesterol Levels: HDL 56, LDL 79, within normal limits. - Magnesium Levels: Slightly low at 1.8. Examination Category Sub-Category Detail Notes Category Not es General Examination Neck, thyroid : supple Heart: BP wnl, RSR, no murm urs Lungs: normal, respirations easy with conversation and ambulation Abdomen: normal, round, non-d istended Extremities: unremarkable General normal, NAD, well no urished and hydrated, pleasant obese female Neurologic exam: unremarkable Peripheral pulses: normal (2+) bilatera lly Psych: orientation to perso n, place & situation, appropriate judgment noted
--- OUTSIDE RECORDS SUMMARY | 2025-03-02 09:09 | XMS_ITS | Clinical Summary ---
Author Organization [facility] [address] [employer] Address [address] [place] [address] Care Team Providers Care Surgical Services Tech Name Role Phone Deysi Barron Primary Care Pr ovider Allergies No known active allergies Medications FLUoxetine 10 mg tablet Take 10 mg by mouth daily 02/13/2021 Active levonorgestreL- ethinyl estrad (SEASONALE) 0.15 mg-30 mcg (91) per tablet Take 1 tablet by mouth daily 02/10/2021 Active spironolactone (ALDACTONE) 100 mg tablet Take 100 mg by mouth daily 02/01/2021 Active omeprazole (PriLOSEC) 40 mg capsule Take 1 capsule (40 mg total) by mouth daily 60 capsule 02/16/2021 Active Active Problems Problem Noted Date Diagnosed Date 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 Shortness of breath 10/15/2011 Surgical History Surgery Date Site/Laterality Comments WISDOM TOOTH EXTRACTION EAR SURGERY Medical History Medical History Date Comments Anxiety Family History Medical History Relation Name Comments Heart disease Father Cancer Other Heart disease Other Relation Name Status Comments Father Other Social History Tobacco Use Types Packs/Day Years Used Date Smoking Tobacco: Never Smokeless Tobacco: Never Personal Safety Answer Date Recorded Getting School Help Needed Not on file 12/29 Comments Unknown Sex and Gender Information Value Date Recorded Sex Assigned at Not on file Legal Sex Female 12:17 AM [employer] Gender Identity Not on file Sexual Orientation Not on file Obstetrics History Last Filed Vital Signs Vital Sign Reading Time Taken Comments Blood Pressure - - Pulse - - Temperature 36.9 C (98.4 F) 02/16/2021 11:11 AM CDT Respiratory Rate - - Oxygen Saturation - - Inhaled Oxygen Concentration - - Weight 81.6 kg (180 lb) 02/16/2021 11:11 AM CDT Height 160 cm (5' 3 ) 02/16/2021 11:11 AM CDT Body Mass Index 31.89 02/16/2021 11:11 AM CDT Plan of Treatment Not on file Insurance [facility] H[facility]PPO Address: [facility] [id number] [place] [address] Care Teams Surgical Services Tech Relationship Specialty Start Date End Date Deysi aBrron PA PCP - General Physician Commercial Attache 02/13/21
--- OUTSIDE RECORDS SUMMARY | 2025-03-02 09:09 | XMS_ITS ---
Author Organization [facility] Address [address] [address] Care Team Providers Care Head Charger Name Role Phone Chyna Watts Primary Care Provider REASON FOR VISIT 3 month f/u laurence Medications Medication SIG (Take, Route, Frequency, Duration) Notes Start Date End Date Status metFORMIN HCl ER 500 MG TAKE 1 TABLET BY MOUTH DAILY WITH THE EVENING MEAL for 90 Active Unithroid 50 MCG 1 tablet in the morn ing on an empty stomach Orally Once a day for 90 days please Active Slynd 4 MG 1 tab(s) orally once a day Active FLUoxetine HCl 20 MG 1 tab(s) orally onc e a day Active Vitamin D (Ergocalciferol) 1.25 MG (92381 UT) TAKE ONE CAPSULE BY MOUTH ONCE WEEKLY for 28 Active Atorvastatin Calcium 10 MG 1 tab(s) oral ly once a day Active Ergocalciferol 1.25 MG (62846 UT) 1 capsule Orally weekly for 84 days 12/08/2024 Active Vitamin B-12 1000 MCG 1 tab(s) orally on ce a day Active Spironolactone 100 MG 1 tab(s) orally on ce a day Active Pantoprazole Sodium 40 MG 1 tab(s) orall y once a day Active Problems Problem Type SNOMED Code ICD Code Onset Dates Problem Status W/U Status Risk Notes Problem Obstructive sleep apnea syndrome (disorder) (67079706) Obstructive sleep apnea (adult) (pediatric) (G47.33) Active confirmed Vital Signs Blood pressure systolic 122 mm Hg 12/08/19 25 Blood pressure diastolic 87 mm Hg 025 Heart Rate 86 /min 12/08/2024 Height 63 in 12/08/2024 Weight 201.8 lbs 12/08/2024 BMI 35.74 kg/m2 12/08/2024 Encounters Encounter Location Date Provider Diagnosis [facility] - Chyna Watts [address] [place] [address] 12/08/2024 Chyna Watts Hypothyroidism, unspecified E03.9 ; Vitamin D deficiency, unspecified E55.9 ; Irregular menstruation, unspecified N92.6 ; Obesity, unspecified E66.9 ; Prediabetes R73.03 ; Dietary counseling and surveillance Z71.3 and Obstructive sleep apnea (adult) (pediatric) G47.33 Assessments Encounter Date Diagnosis (ICD Code) Assessment Notes Treatment Notes Treatment Clinical Notes Section Notes 12/08/2024 Hypothyroidism, unspecified (ICD-10 - E03.9) o 12/08/2024 Vitamin D deficiency, unspecified (ICD-10 - E55.9) o 12/08/2024 Irregular menstruation, unspecified (ICD-10 - N92.6) o 12/08/2024 Obesity, unspecified (ICD-10 - E66.9) o 12/08/2024 Prediabetes (ICD-10 - R73.03) o 12/08/2024 Dietary counseling and surveillance (ICD-10 - Z71.3) o 12/08/2024 Obstructive sleep apnea (adult) (pediatric) (ICD-10 - G47.33) o 12/08/2024 Other Assessment and Plan: Suspected Manquin's SyndromePatient has undergone multiple tests for Manquin's syndrome with inconclusive results, including saliva tests (negative), urine test (borderline), and second dexamethasone suppression test (borderline but lower than the first).Uncontrolled sleep apnea may be contributing to elevated cortisol levels. Order CT scan of adrenal glands to check for inflammation or swelling. Review previous imaging with radiologist from April. Consider surgical intervention if unilateral adrenal abnormality is found. Prepare for potential cortisol blockade therapy if not a surgical candidate. Monitor for improvements in blood pressure, weight loss, and glucose control after addressing cortisol issue. HypertensionPatient' s blood pressure remains uncontrolled despite multiple medications, with recent high readings noted around [place].Suspected adrenal issue may be contributing to hypertension. Add eplerenone 25 mg twice daily (may increase to 50 mg twice daily if needed). Reduce benazepril to 20 mg daily. Prepare to reduce or discontinue hydralazine and amlodipine. Consider discontinuing metoprolol if not needed. Patient to monitor blood pressure 2-3 times daily. Maintain blood pressure goal between 110/60 and 140/90. If dizziness occurs, discontinue amlodipine and hydralazine first. Follow up in 4 weeks to reassess medication regimen. Type 2 Diabetes MellitusPatient's A1C is currently controlled with a regimen including glimepiride, metformin, and Ozempic (semaglutide).Weight loss has plateaued after an initial 16-pound loss. Continue current diabetes medications for now. Plan to discontinue glimepiride and metformin in the future if cortisol issue is resolved. Consider adjusting Ozempic for further weight loss once cortisol levels are controlled. Monitor for hypoglycemia (blood glucose <70 mg/dL). Follow-up:Schedule a follow-up appointment in 4 weeks to review treatment progress and reassess medication regimens.Encourage patient to contact the clinic if any new or worsening symptoms occur. Spent 15 minutes preventative counseling patient on dietary recommendations and changes in setting of hyperglycemia- need to restrict refined sugars and processed foods and incorporate up to 150 minutes of moderate level activity weekly. Spent 25 minutes preparing to see the patient (ex review of tests/chart), obtaining and / or reviewing separately obtained history, performing a medically appropriate examination and/or evaluation, counseling and educating the patient/family/careg iver, ordering medications, tests, or procedures, referring and communicating with other health post acute care nurse practitioner, documenting clinical information in the electronic or other health record, independently interpreting results and communicating results to the patient/family/careg iver and care coordinating patient plan. Patient alert and oriented x 4 and aware of discussion noted above and in agreeance to plan in management of hypothyroidism, obesity/ weight management, concern for hypercortisolism could be driven by SESAR, prediabetes and vit D def. o Plan Of Treatment Medication Medication Name Sig Start Date Stop Date Notes Ergocalciferol 1.25 MG (88218 UT) 1 caps ule Orally weekly for 84 days 12/08/2024 Treatment Notes Assessment Notes Other Assessment and Plan: Suspected Carlos's SyndromePatient has undergone multiple tests for Manquin's syndrome with inconclusive results, including saliva tests (negative), urine test (borderline), and second dexamethasone suppression test (borderline but lower than the first).Uncontrolled sleep apnea may be contributing to elevated cortisol levels. Order CT scan of adrenal glands to check for inflammation or swelling. Review previous imaging with radiologist from April. Consider surgical intervention if unilateral adrenal abnormality is found. Prepare for potential cortisol blockade therapy if not a surgical candidate. Monitor for improvements in blood pressure, weight loss, and glucose control after addressing cortisol issue. HypertensionPatient's blood pressure remains uncontrolled despite multiple medications, with recent high readings noted around [place].Suspected adrenal issue may be contributing to hypertension. Add eplerenone 25 mg twice daily (may increase to 50 mg twice daily if needed). Reduce benazepril to 20 mg daily. Prepare to reduce or discontinue hydralazine and amlodipine. Consider discontinuing metoprolol if not needed. Patient to monitor blood pressure 2-3 times daily. Maintain blood pressure goal between 110/60 and 140/90. If dizziness occurs, discontinue amlodipine and hydralazine first. Follow up in 4 weeks to reassess medication regimen. Type 2 Diabetes MellitusPatient's A1C is currently controlled with a regimen including glimepiride, metformin, and Ozempic (semaglutide).Weight loss has plateaued after an initial 16-pound loss. Continue current diabetes medications for now. Plan to discontinue glimepiride and metformin in the future if cortisol issue is resolved. Consider adjusting Ozempic for further weight loss once cortisol levels are controlled. Monitor for hypoglycemia (blood glucose <70 mg/dL). Follow-up:Schedule a follow-up appointment in 4 weeks to review treatment progress and reassess medication regimens.Encourage patient to contact the clinic if any new or worsening symptoms occur. Spent 15 minutes preventative counseling patient on dietary recommendations and changes in setting of hyperglycemia- need to restrict refined sugars and processed foods and incorporate up to 150 minutes of moderate level activity weekly. Spent 25 minutes preparing to see the patient (ex review of tests/chart), obtaining and / or reviewing separately obtained history, performing a medically appropriate examination and/or evaluation, counseling and educating the patient/family/caregiver, ordering medications, tests, or procedures, referring and communicating with other health post acute care nurse practitioner, documenting clinical information in the electronic or other health record, independently interpreting results and communicating results to the patient/family/caregiver and care coordinating patient plan. Patient alert and oriented x 4 and aware of discussion noted above and in agreeance to plan in management of hypothyroidism, obesity/ weight management, concern for hypercortisolism could be driven by SESAR, prediabetes and vit D def. Pending Test Test Name Order Date Home sleep study 12/08/2024 Next Appt Details Follow Up: 2 Months, Reason: labwork Progress Notes * Maddie RENEEDOB: [birth year] (29 yo F)Acc No.[id number]:12/08/2024 Progress Notes Patient: Maddie CANO Provider: Patt Watts MD :1995 A ge:29 Y S ex:Female Date:12/08/2024 Address:[address] [place] [address] Subjective: * Chief Complaints: * 1 . 3 month f/u laurence. * HPI: I nterval Hx: 29 yo female comes in today for follow up in management of obesity, prediabetes/insulin resistance, hypothyroidism, vit D def, iron def anemia and concern for hypercortisolism. at last visit in Oct we added metformin once daily along with unithroid 50 mcg daily and vit D weekly. Maddie reports persistent fatigue, weakness, and achy joints despite current medications, including metformin, Unithroid 50, and weekly vitamin D. Her A1C is 5.7, indicating prediabetes, and her BMI is approximately 31. She has borderline elevated cortisol levels, with negative saliva tests and a urine cortisol level of 26. Suspected sleep apnea is being investigated with a sleep study. Lupus screening was performed over the summer, and rheumatoid arthritis screening tests are being ordered. The patient also has an unspecified liver condition that has not been fully addressed. Patient presents with concerns about high cortisol levels. Previous saliva tests were negative, while urine test and second dexamethasone suppression test were borderline. The patient has a history of sleep apnea, which may be contributing to elevated cortisol. The patient has experienced weight loss of 16 pounds but has since plateaued. A1C is currently controlled. Patient also reports issues with hypertension, particularly around [place]. Current medications include hydralazine, amlodipine, metoprolol, and benazepril. The patient is no longer taking Farxiga, which was discontinued when starting Ozempic. Current diabetes medications include glimepiride, metformin, and Ozempic. Patient denies experiencing hypoglycemic episodes. Medical History - Type 2 Diabetes - Hypertension - Sleep apnea Current and Past Medications and Supplements - Hydralazine - Amlodipine - Metoprolol - Benazepril 40mg - Glimepiride - Metformin - Ozempic. * ROS: D ERMATOLOGY: no r junito. n o [...] xcessive urination. n o w eight loss. s leep disturbance y es. c old intolerance y es. h eat intolerence y es. n o t hyroid disease. n o i ncreased loss of hair. n o h x of borderline diabetes. n o d iabetes. n o a bdormal body hair. n o r heumatism. n o c hanges in skin texture. N EUROLOGY: headache y es. t ingling numbness y es. n o?seizures. n o i nsomnia. n o m [...] adequate y es, y es. C ONSTITUTIONAL: weight gain y es. n o l oss of appetite. n o?fever. w eakness y es. n o w eight loss. n o n ight sweats. n o n ausea. n o v isual changes. n o c hange in sleep patterns. h +p reviewed y es, R OS form reviewed with patient see scan for detail. n o c hange in activity capacity. E NT: no c old. n o [...] l eg swelling. n o d izziness. s hortness of breath y es. n o v aricose veins.?no l eg [...] at night short of breath. G ASTROENTEROLOGY: nausea y es. h eartburn y es. n o s tool incontinence. n o r eflux. n o a bdominal pain. n o i ndigestion. n o h [...] j oint stiffness. n o a rthritis. b ack pain y es. n o?muscle aches. n o m orning stiffness. n o t endinitis. n ines pain y es,?neck stiffness. n o b ursitis. n o b one marrow biopsy. n o g out. a ctivity intolerance w eakness. n o f racture. P SYCHOLOGY: no h igh stress level. n o d epression. n o?sleep disturbances. n o r bear sx worse with stress. n o s uicidal ideation. n o e ating disorder. n o m ental or physical abuse. n o a nxiety. n o h eadaches. d isease state y es. F EMALE REPRODUCTIVE: no h eavy periods. n o d ysparaunia. n o s exually active. n o p remenstrual syndrome. n o d ysmenorrhea. n o i [...] vaginal discharge. n o h ot flashes. n ervousness. * Medical History: C onstipation, Anxiety, Hot flashes, Abdominal pain, Migraines, Body aches, Fatigue, Acid reflux. * Surgical History: w idsom teeth , earlobe surgery . * Hospitalization/Major Diagno stic Procedure: c olonoscopy . * Family History: P aternal Grand Father: kidney cancer, diagnosed with Heart Disease, Cancer. F ather: diagnosed with Heart Disease, Diabetes. M aternal Grand Mother: diagnosed with Hyperlipidemia, unspecified, Heart Disease. * Social History: S moking: no . R ecreational drug use: no. Alcohol: yes, rarely. caffeine: daily. * Medications: T aking Pantoprazole Sodium 40 MG Tablet Delayed Release [...] tab(s) orally once a day , Taking Unithroid(Levothyroxine Sodium) 50 MCG Tablet 1 tablet in the morning on an empty stomach Orally Once a day , Notes to Pharmacist: please, Taking metFORMIN HCl ER 500 MG Tablet Extended Release 24 Hour TAKE 1 TABLET BY MOUTH DAILY WITH THE EVENING MEAL , Taking Vitamin D (Ergocalciferol) 1.25 MG (98556 UT) Capsule TAKE ONE CAPSULE BY MOUTH ONCE WEEKLY , Discontinued dexAMETHasone 1 MG Tablet 1 tab(s) orally at 10 pm night before 8 am cortisol Objective: * Vitals: H R: 86, BP: 122/87, Ht: 63, Wt: 201.8, BMI: 35.74. * P ast Orders: L ab:CORTISOL, FREE, 24 HOUR URINE (Order Date - 11/23/2024) (Collection Date & Time - 11/23/2024 09:04 AM) Value Reference Range TOTAL VOLUME 1200 - mL CORTISOL, FREE, URINE 26.1 4.0-50.0 - mcg/24 h CORTISOL, FREE, URINE 16.6 - mcg/g creat CREATININE, URINE 1.57 0.50-2.15 - g/24 h L ab:CORTISOL, LC/MS, SALIVA, 2 SAMPLES (Order Date - 11/23/2024) (Collection Date & Time - 11/23/2024 09:04 AM) Value Reference Range DRAW DATE 1 11/22/2024 - DRAW TIME 1 0035 - CORTISOL, SALIVA SAMPLE 1 <0.03 - mcg/dL DRAW DATE 2 11/22/2024 - DRAW TIME 2 1355 - CORTISOL, SALIVA SAMPLE 2 0.09 - mcg/dL L ab:DHEA SULFATE (Order Date - 11/23/2024) (Collection Date & Time - 11/23/2024 09:02 AM) Value Reference Range DHEA SULFATE 161 14-349 - mcg/dL L ab:ACTH, PLASMA (Order Date - 11/23/2024) (Collection Date & Time - 11/23/2024 09:02 AM) Value Reference Range ACTH, PLASMA 20 6-50 - pg/mL Lab:CORTISOL, TOTAL * Collection Date 11/19/2024 09/22/2024 Collection Time 08:05 AM 08:27 AM Order Date 11/19/2024 09/22/2024 CORTISOL, TOTAL 1.4 L (Ref Range: mcg/dL) 1.5 L (Ref Range: mcg/dL) * Lab:DEXAMETHASONE * Collection Date 11/19/2024 09/22/2024 Collection Time 08:05 AM 08:27 AM Order Date 11/19/2024 09/22/2024 DEXAMETHASONE 359 (Ref Range: ng/dL) 398 (Ref Range: ng/dL) ???Lab:HEMOGLOBIN A1c (Order Date - 09/10/2024) (Collection Date & Time - 09/10/2024 09:01 AM)?ValueReference Range?HEMOGLOBIN A1c5.7H<5.7 - % of total Hgb * Examination: G eneral Examination: General n ormal, NAD, well nourished and hydrated, pleasant, obese female. Neck, thyroid : s upple. Heart: B P wnl, RSR, no murmurs. Lungs: n ormal, respirations easy with conversation and ambulation. Abdomen: n ormal, round, non-distended. Neurologic exam: u nremarkable. Extremities: u nremarkable. Peripheral pulses: n ormal (2+) bilaterally . Psych: o rientation to person, place & situation, appropriate judgment noted. Assessment: * Assessment: 1. H ypothyroidism, unspecified - E03.9 (Primary) 2 . V itamin D deficiency, unspecified - E55.9 3 . I rregular menstruation, unspecified - N92.6 ? 4 . O besity, unspecified - E66.9 5 . P rediabetes - R73.03 & #160; 6 . D ietary counseling and surveillance - Z71.3 7 . O bstructive sleep apnea (adult) (pediatric) - G47.33 o Plan: * Treatment: 2. O bstructive sleep apnea (adult) (pediatric) I maging: Home sleep study 3. O thers Notes:Assessment and Plan: Suspected Manquin's SyndromePatient has undergone multiple tests for Carlos's syndrome with inconclusive results, including saliva tests (negative), urine test (borderline), and second dexamethasone suppression test (borderline but lower than the first).Uncontrolled sleep apnea may be contributing to elevated cortisol levels. Order CT scan of adrenal glands to check for inflammation or swelling. Review previous imaging with radiologist from April. Consider surgical intervention if unilateral adrenal abnormality is found. Prepare for potential cortisol blockade therapy if not a surgical candidate. Monitor for improvements in blood pressure, weight loss, and glucose control after addressing cortisol issue. HypertensionPatient's blood pressure remains uncontrolled despite multiple medications, with recent high readings noted around [place].Suspected adrenal issue may be contributing to hypertension. Add eplerenone 25 mg twice daily (may increase to 50 mg twice daily if needed). Reduce benazepril to 20 mg daily. Prepare to reduce or discontinue hydralazine and amlodipine. Consider discontinuing metoprolol if not needed. Patient to monitor blood pressure 2-3 times daily. Maintain blood pressure goal between 110/60 and 140/90. If dizziness occurs, discontinue amlodipine and hydralazine first. Follow up in 4 weeks to reassess medication regimen. Type 2 Diabetes MellitusPatient's A1C is currently controlled with a regimen including glimepiride, metformin, and Ozempic (semaglutide).Weight loss has plateaued after an initial 16-pound loss. Continue current diabetes medications for now. Plan to discontinue glimepiride and metformin in the future if cortisol issue is resolved. Consider adjusting Ozempic for further weight loss once cortisol levels are controlled. Monitor for hypoglycemia (blood glucose <70 mg/dL). Follow-up:Schedule a follow-up appointment in 4 weeks to review treatment progress and reassess medication regimens.Encourage patient to contact the clinic if any new or worsening symptoms occur. Spent 15 minutes preventative counseling patient on dietary recommendations and changes in setting of hyperglycemia- need to restrict refined sugars and processed foods and incorporate up to 150 minutes of moderate level activity weekly. Spent 25 minutes preparing to see the patient (ex review of tests/chart), obtaining and / or reviewing separately obtained history, performing a medically appropriate examination and/or evaluation, counseling and educating the patient/family/caregiver, ordering medications, tests, or procedures, referring and communicating with other health post acute care nurse practitioner, documenting clinical information in the electronic or other health record, independently interpreting results and communicating results to the patient/family/caregiver and care coordinating patient plan. Patient alert and oriented x 4 and aware of discussion noted above and in agreeance to plan in management of hypothyroidism, obesity/ weight management, concern for hypercortisolism could be driven by SESAR, prediabetes and vit D def. ? * Procedure Codes: 9 9401 P/M INVESTIGATION DIVISION CAPTAIN, INDIV 15 MIN * Follow Up: 2 Months (Reason: labwork) * Billing Information: * Visit Code: 03179 Office Visit, Est Pt., Level 4. * Procedure Codes: 69449 P/M INVESTIGATION DIVISION CAPTAIN, INDIV 15 MIN. * SACKER Sign off status: Completed true * Provider: Patt Watts MD Date: 0 12/08/2024 Generated for Tim ng/Papig/eTransmitting on: 0 03/02/2025 09:09 AM CDT History and Physical Notes * HPI (History of Present Illness) Category Sub-Category Detail Notes Category Not es Interval Hx 29 yo female comes in today for follow up in management of obesity, prediabetes/insulin resistance, hypothyroidism, vit D def, iron def anemia and concern for hypercortisolism. at last visit in Oct we added metformin once daily along with unithroid 50 mcg daily and vit D weekly. Maddie reports persistent fatigue, weakness, and achy joints despite current medications, including metformin, Unithroid 50, and weekly vitamin D. Her A1C is 5.7, indicating prediabetes, and her BMI is approximately 31. She has borderline elevated cortisol levels, with negative saliva tests and a urine cortisol level of 26. Suspected sleep apnea is being investigated with a sleep study. Lupus screening was performed over the summer, and rheumatoid arthritis screening tests are being ordered. The patient also has an unspecified liver condition that has not been fully addressed. Patient presents with concerns about high cortisol levels. Previous saliva tests were negative, while urine test and second dexamethasone suppression test were borderline. The patient has a history of sleep apnea, which may be contributing to elevated cortisol. The patient has experienced weight loss of 16 pounds but has since plateaued. A1C is currently controlled. Patient also reports issues with hypertension, particularly around [place]. Current medications include hydralazine, amlodipine, metoprolol, and benazepril. The patient is no longer taking Farxiga, which was discontinued when starting Ozempic. Current diabetes medications include glimepiride, metformin, and Ozempic. Patient denies experiencing hypoglycemic episodes. Medical History - Type 2 Diabetes - Hypertension - Sleep apnea Current and Past Medications and Supplements - Hydralazine - Amlodipine - Metoprolol - Benazepril 40mg - Glimepiride - Metformin - Ozempic Examination Category Sub-Category Detail Notes Category Not es General Examination Neck, thyroid : supple Heart: BP wnl, RSR, no murm urs Lungs: normal, respirations easy with conversation and ambulation Abdomen: normal, round, non-d istended Extremities: unremarkable General normal, NAD, well no urished and hydrated, pleasant, obese female Neurologic exam: unremarkable Peripheral pulses: normal (2+) bilatera lly Psych: orientation to perso n, place & situation, appropriate judgment noted
--- OUTSIDE RECORDS SUMMARY | 2025-03-02 09:09 | XMS_ITS | Referral Summary ---
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
--- OUTSIDE RECORDS SUMMARY | 2025-03-02 09:09 | XMS_ITS | Clinical Summary ---
Author Organization [facility] Address [address] [place] [address] Care Team Providers Care Compounder Helper Name Role Phone Unavailable Primary Care Provider Unavailabl e Encounters Date Type Department Care Team Description 02/02/2025 External Device Data [facility] ABSTRACTION Provider, Abstract 01/09/2025 External Device Data [facility] ABSTRACTION Provider, Abstract 01/08/2025 External Device Data [facility] ABSTRACTION Provider, Abstract 01/06/2025 External Device Data [facility] ABSTRACTION Provider, Abstract 12/23/2024 External Device Data [facility] ABSTRACTION Provider, Abstract from Last 3 Months Social History Tobacco Use Types Packs/Day Years Used Date Smoking Tobacco: Never Assessed Comments Unknown Sex and Gender Information Value Date Recorded Sex Assigned at Not on file Legal Sex Female 9:44 AM CDT Gender Identity Not on file Sexual Orientation Not on file Plan of Treatment Health Maintenance Due Date Last Done Comments DTAP/TDAP/TD VACCINES (1 - Tdap) 2013 HEPATITIS B VACCINES (1 of 3 - 19+ 3-dose series) 2013 HPV/Cotest (21-29) 2015 INFLUENZA VACCINE (#1) 2024 CERVICAL CANCER SCREENING 2024 HPV/Cotest (30-65) 2024 PAP SMEAR 2024 HPV VACCINES Aged Out No longer eligi ble based on patient's age to complete this topic Insurance [facility] [id number]
--- OUTSIDE RECORDS SUMMARY | 2025-03-02 09:09 | XMS_ITS | Patient Health Record ---
Author Organization [facility] Address [address] [address] Care Team Providers Care Card Sorter Name Role Phone MacChyna Primary Care Provider [phone] Migration, Provider Unavailable Unavailable Allergies No Known Allergies Results Component Value Reference Range Notes COMPREHENSIVE METABOLIC PANE L Reviewed date:09/13/2024 09:29:03 AM Interpretation: Performing Lab:[facility], [address] [place], [address] Tan Benson MD Notes/Report: FASTING:YES FASTING: YES VITAMIN D, 25-HYDROXY, LC/MS /MS Reviewed date:09/13/2024 09:25:06 AM Interpretation: Performing Lab:[facility] [place], [address] [place], [address] Tan Benson MD Notes/Report: FASTING:YES FASTING: YES ACTH, PLASMA Reviewed date:09/17/2024 07:58:52 PM Interpretation: Performing Lab:[facility], [address] [facility] , [place], [address] José Miguel Cabrera M.D.,PhD Notes/Report: FASTING:YES FASTING: YES ADDIS IFA SCREEN W/REFL TO TIT ER AND PATTERN, IFA Reviewed date:09/13/2024 09:28:17 AM Interpretation: Performing Lab:[facility], [address], [place], [address] Tan Benson MD Notes/Report: FASTING:YES FASTING: YES T3, FREE Reviewed date:09/13/2024 09:25:21 AM Interpretation: Performing Lab:[place], [facility], [address], [place], [address] Tan Benson MD Notes/Report: FASTING:YES FASTING: YES CORTISOL, TOTAL Reviewed date:09/13/2024 09:27:51 AM Interpretation: Performing Lab:YOU[facility]F, [facility], [address], [place], [address] Tan Benson MD Notes/Report: FASTING:YES FASTING: YES ESTRADIOL Reviewed date:09/13/2024 09:25:39 AM Interpretation: Performing Lab:[facility], [address], [place], [address] Tan Benson MD Notes/Report: FASTING:YES FASTING: YES RHEUMATOID FACTOR Reviewed date:09/13/2024 09:28:09 AM Interpretation: Performing Lab:[facility], [address], [place], [address] Tan Benson MD Notes/Report: FASTING:YES FASTING: YES C-REACTIVE PROTEIN Reviewed date:09/13/2024 09:28:00 AM Interpretation: Performing Lab:[facility], [address], [place], [address] Tan Benson MD Notes/Report: FASTING:YES FASTING: YES FERRITIN Reviewed date:09/13/2024 09:27:29 AM Interpretation: Performing Lab:[facility], [address], [place], [address] Tan Benson MD Notes/Report: FASTING:YES FASTING: YES FSH Reviewed date:09/13/2024 09:27:20 AM Interpretation: Performing Lab:[facility], [address], [place], [address] Tan Benson MD Notes/Report: FASTING:YES FASTING: YES HEMOGLOBIN A1c Reviewed date:09/13/2024 09:24:16 AM Interpretation: Performing Lab[facility], [address] , [place], [address] SerenaPastora Benson Notes/Report: FASTING:YES FASTING: YES INSULIN Reviewed date:09/13/2024 09:27:07 AM Interpretation: Performing Lab:[facility], [address], [place], [address] Tan Benson MD Notes/Report: FASTING:YES FASTING: YES MAGNESIUM Reviewed date:09/13/2024 09:29:50 AM Interpretation: Performing Lab:[facility], [address], [place], [address] Tan Benson MD Notes/Report: FASTING:YES FASTING: YES CBC (INCLUDES DIFF/PLT) Reviewed date:09/13/2024 09:28:33 AM Interpretation: Performing Lab:[facility], [address], [place], [address] Tan Benson MD Notes/Report: FASTING:YES FASTING: YES VITAMIN B12/FOLATE, SERUM PA JOHNNA Reviewed date:09/13/2024 09:25:30 AM Interpretation: Performing Lab:[facility], [address], [place], [address] Tan Benson MD Notes/Report: FASTING:YES FASTING: YES PROGESTERONE Reviewed date:09/13/2024 09:26:42 AM Interpretation: Performing Lab:[facility], [address], [place], [address] Tan Benson MD Notes/Report: FASTING:YES FASTING: YES IRON AND TOTAL IRON BINDING CAPACITY Reviewed date:09/13/2024 09:29:42 AM Interpretation: Performing Lab:[facility], [address], [place], [address] Tan Benson MD Notes/Report: FASTING:YES FASTING: YES LIPID PANEL Reviewed date:09/13/2024 09:29:58 AM Interpretation: Performing Lab:[facility], [address], [place], [address] Tan Benson MD Notes/Report: FASTING:YES FASTING: YES SED RATE BY MODIFIED DAKOTA SALVADOR Reviewed date:09/13/2024 09:28:40 AM Interpretation: Performing Lab:[place], [facility], [address], [place], [place], [address] Tan Benson MD Notes/Report: FASTING:YES FASTING: YES T4, FREE Reviewed date:09/13/2024 09:26:27 AM Interpretation: Performing Lab:[place], [facility], [address], [place], [place], [address] Tan Benson MD Notes/Report: FASTING:YES FASTING: YES PTH, INTACT AND CALCIUM Reviewed date:09/13/2024 09:30:07 AM Interpretation: Performing Lab:[facility], [facility], [address], [place], [address] Tan Benson MD Notes/Report: FASTING:YES FASTING: YES TSH Reviewed date:09/13/2024 09:25:46 AM Interpretation: Performing Lab:[facility], [address], [place], [place], [address] Tan Benson MD Notes/Report: FASTING:YES FASTING: YES TESTOSTERONE, FREE (DIALYSIS ) AND TOTAL,MS Reviewed date:09/17/2024 07:59:00 PM Interpretation: Performing Lab:[facility], [facility], [address] [place] [address], [address], [place], [address] Gracie Antunez MD,PhD Notes/Report: FASTING:YES FASTING: YES TESTOSTERONE, TOTAL, MS 21 2-45 ng/dL For additional information, please refer to https://education.Vdancer.Weemba/faq/RJV436 (This link is being provided for informational/educational purposes only.) (Note) This test was developed and its analytical performance characteristics have been determined by [employer]. It has not been cleared or approved by the FDA. This assay has been validated pursuant to the CLIA regulations and is used for clinical purposes. TESTOSTERONE, FREE 3.9 0.1-6.4 pg/mL (Note) This test was developed and its analytical performance characteristics have been determined by [employer]. It has not been cleared or approved by the FDA. This assay has been validated pursuant to the CLIA regulations and is used for clinical purposes. [facility] [address] [address],[address] [facility] [address] Gracie Antunez MD, PhD DEXAMETHASONE Reviewed date:10/03/2024 02:23:37 PM Interpretation: Performing Lab:[facility] [employer] [facility],, [address] [place], [address] Elizabeth Ortiz MD,PhD,SANKET Notes/Report: FASTING:YES FASTING: YES DEXAMETHASONE 398 Reference Ranges for Dexamethasone: Baseline: Less than 20 ng/dL 1 mg dexamethasone overnight: 180-550 ng/dL (8:00-10:00 AM) This test was developed and its analytical performance characteristics have been determined by [employer]. It has not been cleared or approved by FDA. This assay has been validated pursuant to the CLIA regulations and is used for clinical purposes. CORTISOL, TOTAL Reviewed date:09/23/2024 06:47:27 AM Interpretation: Performing Lab:[facility], [address] [place], [address] Tan Benson MD Notes/Report: FASTING:YES FASTING: YES DEXAMETHASONE Reviewed date:11/29/2024 02:54:01 PM Interpretation: Performing Lab:[facility],, [address] [place], [address] Elizabeth Ortiz MD,PhD,SANKET Notes/Report: FASTING:YES FASTING: YES DEXAMETHASONE 359 Reference Ranges for Dexamethasone: Baseline: Less than 20 ng/dL 1 mg dexamethasone overnight: 180-550 ng/dL (8:00-10:00 AM) This test was developed and its analytical performance characteristics have been determined by [employer]. It has not been cleared or approved by FDA. This assay has been validated pursuant to the CLIA regulations and is used for clinical purposes. CORTISOL, TOTAL Reviewed date:11/21/2024 10:14:59 AM Interpretation: Performing Lab:[facility], [address] [place], [address] Tan Benson MD Notes/Report: FASTING:YES FASTING: YES ACTH, PLASMA Reviewed date:11/29/2024 02:50:26 PM Interpretation: Performing Lab:[facility], [address], [place], [address] José Miguel Cabrera M.D.,PhD Notes/Report: MULTIPLE TESTING PRIORITIES; ROUTINE TESTING TO FOLLOW. URINE VOLUME: 2000 DHEA SULFATE Reviewed date:11/24/2024 11:28:33 AM Interpretation: Performing Lab:[facility], [address] [place], [address] Tan Benson MD Notes/Report: MULTIPLE TESTING PRIORITIES; ROUTINE TESTING TO FOLLOW. URINE VOLUME: 2000 CORTISOL, FREE, 24 HOUR URIN E Reviewed date:12/03/2024 03:00:58 PM Interpretation: Performing Lab:[facility],, [address] [place], [address] Elizabeth Ortiz MD,PhD,SANKET Notes/Report: SPLIT 11/23/2024 FROM [id number] URINE VOLUME: 1200/24 TOTAL VOLUME 1200 CORTISOL, FREE, URINE 26.1 4.0-50.0 mcg/24 h CORTISOL, FREE, URINE 16.6 Reference Range: ADULTS: 3.1-42.3 CREATININE, URINE 1.57 0.50-2.15 g/24 h This test was developed and its analytical performance characteristics have been determined by [employer]. It has not been cleared or approved by FDA. This assay has been validated pursuant to the CLIA regulations and is used for clinical purposes. CORTISOL, LC/MS, SALIVA, 2 S AMPLES Reviewed date:11/29/2024 03:51:23 PM Interpretation: Performing Lab:[facility]ie [facility],, [address] [place], [address] Elizabeth Ortiz MD,PhD,SANKET Notes/Report: SPLIT 11/23/2024 FROM [id number] URINE VOLUME: 1200/24 DRAW DATE 1 11/22/2024 DRAW TIME 1 0035 CORTISOL, SALIVA SAMPLE 1 <0.03 8-10 AM: 0.04-0.56 mcg/dL noon-2 PM: < OR = 0.21 mcg/dL 4-6 PM: < OR = 0.15 mcg/dL 10 PM-1 AM: < OR = 0.09 mcg/dL This test was developed and its analytical performance characteristics have been determined by [employer]. It has not been cleared or approved by FDA. This assay has been validated pursuant to the CLIA regulations and is used for clinical purposes. DRAW DATE 2 11/22/2024 DRAW TIME 2 1355 CORTISOL, SALIVA SAMPLE 2 0.09 8-10 AM: 0.04-0.56 mcg/dL noon-2 PM: < OR = 0.21 mcg/dL 4-6 PM: < OR = 0.15 mcg/dL 10 PM-1 AM: < OR = 0.09 mcg/dL This test was developed and its analytical performance characteristics have been determined by [employer]. It has not been cleared or approved by FDA. This assay has been validated pursuant to the CLIA regulations and is used for clinical purposes. Reason For Referral No Information Medications Medication SIG (Take, Route, Frequency, Duration) [...] tab(s) orally onc e a day Active Atorvastatin Calcium 10 MG 1 tab(s) oral ly once a day Active Ergocalciferol 1.25 MG (22634 UT) 1 capsule Orally weekly for 84 days Active Vitamin B-12 1000 MCG 1 tab(s) orally on ce a day Active Spironolactone 100 MG 1 tab(s) orally on ce a day Active Pantoprazole Sodium 40 MG 1 tab(s) orall y once a day Active Problems Problem Type SNOMED Code ICD Code Onset Dates Problem Status W/U Status Risk Notes Problem Vitamin D deficiency (26855588) Vitamin D deficiency, unspecified (E55.9) Active confirmed Problem Hypothyroidism (43403922) Hypothyroidism, unspecified (E03.9) Active confirmed Problem Obstructive sleep apnea syndrome (disorder) (66432414) Obstructive sleep apnea (adult) (pediatric) (G47.33) Active confirmed Problem Obesity (185262633) Obesity, unspecified (E66.9) Active confirmed Problem Irregular menstruation (87020878) Irregular menstruation, unspecified (N92.6) Active confirmed Vital Signs Heart Rate 86 /min 12/08/2024 Blood pressure diastolic 87 mm Hg 12/08/2024 Height 63 in 12/08/2024 Blood pressure systolic 122 mm Hg 12/08/2024 Weight 201.8 lbs 12/08/2024 BMI 35.74 kg/m2 12/08/2024 Encounters Encounter Location Date Provider Diagnosis [facility] [address] [place] [address] 09/19/2024 Provider Migration Obesity, unspecified E66.9 [id number] [address] [place] [address] 02/09/2025 [facility] [address] [place] [address] 09/03/2024 Chyna [facility] Obesity, unspecified E66.9 ; Other fatigue R53.83 ; Irregular menstruation, unspecified N92.6 ; Encounter for screening for lipoid disorders Z13.220 ; Vitamin D deficiency, unspecified E55.9 and Unspecified abdominal pain R10.9 [facility] [address] [place] [address] 10/08/2024 Chyna [facility] Vitamin D deficiency, unspecified E55.9 ; Obesity, unspecified E66.9 ; Insulin resistance, unspecified E88.819 ; Prediabetes R73.03 ; Iron deficiency E61.1 and Hypothyroidism, unspecified E03.9 [facility] [address] [place] [address] 12/08/2024 Chyna [facility] Hypothyroidism, unspecified E03.9 ; Vitamin D deficiency, unspecified E55.9 ; Irregular menstruation, unspecified N92.6 ; Obesity, unspecified E66.9 ; Prediabetes R73.03 ; Dietary counseling and surveillance Z71.3 and Obstructive sleep apnea (adult) (pediatric) G47.33 Assessments Encounter Date Diagnosis (ICD Code) Assessment Notes Treatment Notes Treatment Clinical Notes Section Notes 09/19/2024 Obesity, unspecified (ICD-10 - E66.9) 09/03/2024 Other fatigue (ICD-10 - R53.83) 09/03/2024 Obesity, unspecified (ICD-10 - E66.9) 10/08/2024 Vitamin D deficiency, unspecified (ICD-10 - E55.9) 10/08/2024 Obesity, unspecified (ICD-10 - E66.9) 12/08/2024 Vitamin D deficiency, unspecified (ICD-10 - E55.9) o 12/08/2024 Hypothyroidism, unspecified (ICD-10 - E03.9) o 09/03/2024 Irregular menstruation, unspecified (ICD-10 - N92.6) 10/08/2024 Insulin resistance, unspecified (ICD-10 - E88.819) 12/08/2024 Irregular menstruation, unspecified (ICD-10 - N92.6) o 09/03/2024 Encounter for screening for lipoid disorders (ICD-10 - Z13.220) 10/08/2024 Prediabetes (ICD-10 - R73.03) 12/08/2024 Obesity, unspecified (ICD-10 - E66.9) o 09/03/2024 Vitamin D deficiency, unspecified (ICD-10 - E55.9) 10/08/2024 Iron deficiency (ICD-10 - E61.1) 12/08/2024 Prediabetes (ICD-10 - R73.03) o 09/03/2024 Unspecified abdominal pain (ICD-10 - R10.9) 10/08/2024 Hypothyroidism, unspecified (ICD-10 - E03.9) 12/08/2024 Dietary counseling and surveillance (ICD-10 - Z71.3) o 12/08/2024 Obstructive sleep apnea (adult) (pediatric) (ICD-10 - G47.33) o 09/03/2024 Other Assessment and Plan: 1. Chronic pain and fatigue- Order a comprehensive hormone panel, including T3, T4, and TSH- Perform a DEXA suppression test to check cortisol levels and ACHDHS for pituitary adrenal axis- Check sugars to rule out early diabetes- Consider Metformin for bowel movement regulation if sugars are off 2. Hepatic steatosis and liver lesions- Continue monitoring liver function and imaging as needed- Maintain use of Slynd, a progesterone-based pill, to avoid potential estrogen-related liver issues 3. High cholesterol- Trial of atorvastatin every three days to assess if it helps with muscle aches- Consider alternative treatments such as fish oil if muscle aches persist 4. Constipation and digestive issues- Evaluate the need for a bowel regimen after further testing- Consider idiopathic gastroparesis as a potential cause if no other underlying issues are found 5. Possible prediabetes- Monitor A1c levels and consider lifestyle modifications to improve blood sugar control 6. Potential parathyroid dysfunction- Add a PTH test to evaluate parathyroid function due to slightly elevated calcium levels- If PTH is high, perform an ultrasound of the thyroid to assess for parathyroid disease 7. Follow-up- Schedule a follow-up appointment in three to four weeks, either in person or via telehealth, to discuss lab results and further treatment options 8. Lab testing- Complete two fasting labs: one longer test before 10 a.m. and a second test involving a dexamethasone pill at 10 p.m. with a lab before 8 a.m. (no later than 9 a.m.)- Wait closer to six weeks off estrogen before performing the dexamethasone suppression test Spent 45 minutes preparing to see the patient (ex [...] in agreeance to plan in management of fatigue, abd pain, weight gain, menstrual changes and weight management. 10/08/2024 Other Assessment and Plan: 1. Insulin [...] to plan in management of hypothyroidism, insulin resistance,prediabet es, obesity/weight management, vit D def and MICHAEL. 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 [...] vit D def. o Plan Of Treatment Pending Test Test Name Order Date Home sleep study 12/08/2024 Insurance Providers Payer Name Payer Address Payer Phone Subscriber Number Group Number Insured Name Patient Relationship to Insured Coverage Start Date Coverage End Date [facility] [address] [place] [phone] [id number] Maddie Renee Self - patient is the insured Medical (General) History Medical History History ICD Code constipation anxiety hot flashes abdominal pain migraines body aches fatigue acid reflux Surgical History Surgery Date(Month/Year) earlobe surgery widsom teeth Hospitalization History Reason Date(Month/Year) colonoscopy
--- OUTSIDE RECORDS SUMMARY | 2025-03-02 09:09 | XMS_ITS | Data Portability ---
Author Organization [facility] MARKUSMaria Elena Address [address] [place] [address] Assessment No assessment recorded. Plan of Treatment Reminders Order Date Submit Date Provider Last Modified By Organization Details Last Modified Time Details Appointments ANY 15 2024 10:00A M ELIZABETH Najera Not available Not available Not available Lab TSH + free T4, serum 2023 024 SHANTI Fernandez, [address], [address], [place], [address], 02/10/2024 12:36:37 ADDIS (antinucl ear antibodie s) screen, serum 2023 024 SHANTI Fernandez, [address], [address], [place], [address], 02/10/2024 12:36:37 CMP, serum or plasma 2023 024 SHANTI Fernandez, [address], [address], [place], [address], 02/10/2024 12:36:38 amylase + lipase, serum 2023 024 SHANTI Fernandez, [address], [address], [place], [address], 02/10/2024 12:36:41 CBC w/ auto diff 2023 024 SHANTI Fernandez, [address], [address], [place], [address], 02/10/2024 12:36:39 lipid panel, serum 2023 024 SHANTI Jim, [address], [address], [place], [address], 02/10/2024 12:36:38 rf (rheumato id factor) + anti-ccp abs, serum 2023 024 SHANTI Fernandez, [address], [address], [place], [address], 02/10/2024 12:36:36 erythrocy te sedimenta tion rate by westergre n method 2023 024 SHANTI Fernandez, [address], [address], [place], [address], 02/10/2024 12:36:40 C reactive protein, QN, serum or plasma 2023 024 CAMERON Rosannecox south, [address], [address], [place], [address], 02/10/2024 12:36:40 HbA1c (hemoglob in A1c), blood 2023 024 CAMERON Phi, [address], [address], [place], [address], 02/10/2024 12:36:39 Referral None recorded. Procedures home sleep testing (PROC) 2024 025 Alexi-Resub [facility], [address], [place], [address], 03/01/2025 13:20:03 Surgeries None recorded. Imaging RF, upper gastroint estinal tract, w/ contrast PO 2023 024 [facility], [address], [address], [place], [address], 02/26/2024 18:17:20 US, abdomen, complete 2023 024 [facility], [address], [address], [place], [address], 02/26/2024 17:06:02 Medication Orders hydroxyzi ne pamoate 25 mg capsule 2024 025 [facility] #[id number], [address] [facility], [place], [place], [id number], 02/04/2025 15:09:11 pantopraz ole 40 mg tablet,de layed release 2023 024 [facility] #[id number], [address] [facility], [place], [place], [id number], 02/05/2024 15:31:06 atorvasta tin 10 mg tablet 2023 024 [facility] #[id number], [address] [facility], [place], [place], [id number], 02/05/2024 15:33:54 Patient TargetsNo targets recorded. Patient Instructions Encounter Date Encounter Id Patient Instructions Last Modified By Organization Details Last Modified Time 02/04/2025 [id number] A healthy lifestyle: care instructions [email or web address] Not available 02/04/2025 15:07:11 Reason for Referral None Reported. Results Created Date Observation Date Name Description Value Unit Range Abnormal Flag Note LastModifiedBy Organization Detail LastModifiedTime 02/08/2002/09/2024 RHEUM ATOID ARTHR ITIS PROFI LE rheumatoid factor (rf) <10.0 IU/mL <14.0 Not Available [facility]) [address] [facility], [place], [address], 02/10/2024 12:36:36 02/08/20 24 02/10/2024 RHEUM ATOID ARTHR ITIS PROFI LE anti-ccp Ab, IgG/IgA 2 units 0-19 Negat rolan <20 Weak posit rolan 20 - 39 Moder ate posit rolan 40 - 59 Stron g posit rolan >59 Not Available [facility] ([facility]) [address] [place], [address], 02/10/2024 12:36:36 02/08/20 24 02/10/2024 ANTIN UCLEA R AB MULTI PLEX RFX 9 ADDIS direct Negati ve negati ve Not Available [facility] ([facility]) [address] [place], [address], 02/10/2024 12:36:37 02/08/20 24 02/09/2024 TSH+F REE T4 TSH 2.160 uIU/m L 0.450- 4.500 Not Available [facility] ([facility]) [address] [place], [address], 02/10/2024 12:36:37 02/08/20 24 02/09/2024 TSH+F REE T4 T4,free(dire ct) 1.12 NG/dL 0.82-1 .77 Not Available [facility] ([facility]) [address] [place], [address], 02/10/2024 12:36:37 02/08/20 24 02/09/2024 LIPID PANEL cholesterol, total 210 mg/dL 100-19 9 above high normal Not Available [facility] ([facility]) [address] [place], [address], 02/10/2024 12:36:38 02/08/20 24 02/09/2024 LIPID PANEL triglyceride s 155 mg/dL 0-149 above high normal Not Available [facility] ([facility]) [address] [place], [address], 02/10/2024 12:36:38 02/08/20 24 02/09/2024 LIPID PANEL HDL cholesterol 66 mg/dL >39 Not Available [facility]) [address] [place], [address], 02/10/2024 12:36:38 02/08/20 24 02/09/2024 LIPID PANEL VLDL cholesterol jae 27 mg/dL 5-40 Not Available [facility]) [address] [place], [address], 02/10/2024 12:36:38 02/08/20 24 02/09/2024 LIPID PANEL LDL chol calc ([facility]) 117 mg/dL 0-99 above high normal Not Available [facility] ([facility]) [address] [place], [address], 02/10/2024 12:36:38 02/08/20 24 02/09/2024 COMP. METAB OLIC PANEL (14) glucose 80 mg/dL 70-99 Not Available [facility] ([facility]) [address] [place], [address], 02/10/2024 12:36:38 02/08/20 24 02/09/2024 COMP. METAB OLIC PANEL (14) BUN 11 mg/dL 6-20 Not Available [facility] ([facility]) [address] [place], [address], 02/10/2024 12:36:38 02/08/20 24 02/09/2024 COMP. METAB OLIC PANEL (14) creatinine 0.86 mg/dL 0.57-1 .00 Not Available [facility] ([facility]) [address] [place], [address], 02/10/2024 12:36:38 02/08/20 24 02/09/2024 COMP. METAB OLIC PANEL (14) eGFR 94 mL/mi n/1.7 3 >59 Not Available [facility] ([facility]) [address] [place], [address], 02/10/2024 12:36:38 02/08/20 24 02/09/2024 COMP. METAB OLIC PANEL (14) BUN/creatini ne ratio 13 9-23 Not Available [facility] ([facility]) [address], [place], [address], 02/10/2024 12:36:38 02/08/20 24 02/09/2024 COMP. METAB OLIC PANEL (14) sodium 138 mmol/ L 134-14 4 Not Available [facility] ([facility]) [address] [facility], [place], [address], 02/10/2024 12:36:38 02/08/20 24 02/09/2024 COMP. METAB OLIC PANEL (14) potassium 4.8 mmol/ L 3.5-5. 2 Not Available [facility] ([facility]) [address] [place], [address], 02/10/2024 12:36:38 02/08/20 24 02/09/2024 COMP. METAB OLIC PANEL (14) chloride 100 mmol/ L 96-106 Not Available [facility] ([facility]) [address], [place], [address], 02/10/2024 12:36:38 02/08/20 24 02/09/2024 COMP. METAB OLIC PANEL (14) carbon dioxide, total 23 mmol/ L 20-29 Not Available [facility] ([facility]) [address] [facility] [place], [address], 02/10/2024 12:36:38 02/08/20 24 02/09/2024 COMP. METAB OLIC PANEL (14) calcium 10.0 mg/dL 8.7-10 .2 Not Available [facility] ([facility]) [address] [facility] [place], [address], 02/10/2024 12:36:38 02/08/20 24 02/09/2024 COMP. METAB OLIC PANEL (14) protein, total 7.1 g/dL 6.0-8. 5 Not Available [facility] ([facility]) [address] [facility] [place], [address], 02/10/2024 12:36:38 02/08/20 24 02/09/2024 COMP. METAB OLIC PANEL (14) albumin 4.1 g/dL 4.0-5. 0 Not Available [facility] ([facility]) [address] [facility], [place], [address], 02/10/2024 12:36:38 02/08/20 24 02/09/2024 COMP. METAB OLIC PANEL (14) globulin, total 3.0 g/dL 1.5-4. 5 Not Available [facility] ([facility]) [address] [facility] [place], [address], 02/10/2024 12:36:38 02/08/20 24 02/09/2024 COMP. METAB OLIC PANEL (14) A/G ratio 1.4 1.2-2. 2 Not Available [facility] ([facility]) [address] [facility] [place], [address], 02/10/2024 12:36:38 02/08/20 24 02/09/2024 COMP. METAB OLIC PANEL (14) bilirubin, total 0.6 mg/dL 0.0-1. 2 Not Available [facility] ([facility]) [address] [facility] [place], [address], 02/10/2024 12:36:38 02/08/20 24 02/09/2024 COMP. METAB OLIC PANEL (14) alkaline phosphatase 140 IU/L 44-121 above high normal Not Available [facility] ([facility]) [address] [facility], [place], [address], 02/10/2024 12:36:38 02/08/20 24 02/09/2024 COMP. METAB OLIC PANEL (14) AST (SGOT) 24 IU/L 0-40 Not Available [facility] ([facility]) [address] [facility] [place], [address], 02/10/2024 12:36:38 04/06/20 24 02/09/2024 COMP. METAB OLIC PANEL (14) ALT (SGPT) 24 IU/L 0-32 Not Available [facility] ([facility]) [address] [facility], [place], [address], 02/10/2024 12:36:38 02/08/20 24 02/09/2024 HEMOG LOBIN A1C hemoglobin A1C 5.6 % 4.8-5. 6 Predi abete s: 5.7 - 6.4 Diabe nestor: >6.4 Glyce curry contr ol for adult s with diabe nestor: <7.0 Not Available [facility] ([facility]) [address] [facility], [place], [address], 02/10/2024 12:36:39 02/08/20 24 02/09/2024 CBC WITH DIFFE RENTI AL/PL ATELE T WBC 9.0 x10e3 /uL 3.4-10 .8 Not Available [facility] ([facility]) [address] [facility], [place], [address], 02/10/2024 12:36:39 02/08/20 24 02/09/2024 CBC WITH DIFFE RENTI AL/PL ATELE T RBC 5.16 x10e6 /uL 3.77-5 .28 Not Available [facility] ([facility]) [address] [place], [address], 02/10/2024 12:36:39 02/08/20 24 02/09/2024 CBC WITH DIFFE RENTI AL/PL ATELE T hemoglobin 14.1 g/dL 11.1-1 5.9 Not Available [facility] ([facility]) [address] [place], [address], 02/10/2024 12:36:39 02/08/20 24 02/09/2024 CBC WITH DIFFE RENTI AL/PL ATELE T hematocrit 42.8 % 34.0-4 6.6 Not Available [facility] ([facility]) [address] [facility], [place], [address], 02/10/2024 12:36:39 02/08/20 24 02/09/2024 CBC WITH DIFFE RENTI AL/PL ATELE T MCV 83 fL 79-97 Not Available [facility] ([facility]) [address] [facility], [place], [address], 02/10/2024 12:36:39 02/08/20 24 02/09/2024 CBC WITH DIFFE RENTI AL/PL ATELE T MCH 27.3 pg 26.6-3 3.0 Not Available [facility] ([facility]) [address] [facility], [place], [address], 02/10/2024 12:36:39 02/08/20 24 02/09/2024 CBC WITH DIFFE RENTI AL/PL ATELE T MCHC 32.9 g/dL 31.5-3 5.7 Not Available [facility] ([facility]) [address] [facility], [place], [address], 02/10/2024 12:36:39 02/08/20 24 02/09/2024 CBC WITH DIFFE RENTI AL/PL ATELE T RDW 13.0 % 11.7-1 5.4 Not Available [facility] ([facility]) [address] [place], [address], 02/10/2024 12:36:39 02/08/20 24 02/09/2024 CBC WITH DIFFE RENTI AL/PL ATELE T platelets 467 x10e3 /uL 150-45 0 above high normal Not Available [facility] ([facility]) [address] [place], [address], 02/10/2024 12:36:39 02/08/20 24 02/09/2024 CBC WITH DIFFE RENTI AL/PL ATELE T neutrophils 55 % notest ab. Not Available [facility] ([facility]) [address] [place], [address], 02/10/2024 12:36:39 02/08/20 24 02/09/2024 CBC WITH DIFFE RENTI AL/PL ATELE T lymphs 36 % notest ab. Not Available [facility] ([facility]) [address] [facility], [place], [address], 02/10/2024 12:36:39 02/08/20 24 02/09/2024 CBC WITH DIFFE RENTI AL/PL ATELE T monocytes 7 % notest ab. Not Available [facility] ([facility]) [address] [facility], [place], [address], 02/10/2024 12:36:39 02/08/20 24 02/09/2024 CBC WITH DIFFE RENTI AL/PL ATELE T eos 1 % notest ab. Not Available [facility] ([facility]) [address] [facility], [place], [address], 02/10/2024 12:36:39 02/08/20 24 02/09/2024 CBC WITH DIFFE RENTI AL/PL ATELE T basos 1 % notest ab. Not Available [facility] ([facility]) [address] [facility], [place], [address], 02/10/2024 12:36:39 02/08/20 24 02/09/2024 CBC WITH DIFFE RENTI AL/PL ATELE T neutrophils (absolute) 5.0 x10e3 /uL 1.4-7. 0 Not Available [facility] ([facility]) [address] [facility], [place], [address], 02/10/2024 12:36:39 02/08/20 24 02/09/2024 CBC WITH DIFFE RENTI AL/PL ATELE T lymphs (absolute) 3.2 x10e3 /uL 0.7-3. 1 above high normal Not Available [facility] ([facility]) [address] [place], [address], 02/10/2024 12:36:39 02/08/20 24 02/09/2024 CBC WITH DIFFE RENTI AL/PL ATELE T monocytes(ab solute) 0.6 x10e3 /uL 0.1-0. 9 Not Available [facility] ([facility]) [address] [facility], [place], [address], 02/10/2024 12:36:39 02/08/20 24 02/09/2024 CBC WITH DIFFE RENTI AL/PL ATELE T eos (absolute) 0.1 x10e3 /uL 0.0-0. 4 Not Available [facility] ([facility]) [address] [facility], [place], [address], 02/10/2024 12:36:39 02/08/20 24 02/09/2024 CBC WITH DIFFE RENTI AL/PL ATELE T baso (absolute) 0.1 x10e3 /uL 0.0-0. 2 Not Available [facility] ([facility]) [address] [facility], [place], [address], 02/10/2024 12:36:39 02/08/20 24 02/09/2024 CBC WITH DIFFE RENTI AL/PL ATELE T immature granulocytes 0 % notest ab. Not Available [facility] ([facility]) [address] [facility], [place], [address], 02/10/2024 12:36:39 02/08/20 24 02/09/2024 CBC WITH DIFFE RENTI AL/PL ATELE T immature grans (abs) 0.0 x10e3 /uL 0.0-0. 1 Not Available [facility] ([facility]) [address] [facility], [place], [address], 02/10/2024 12:36:39 02/08/20 24 02/09/2024 SEDIM ENTAT ION RATE- WESTE RGREN sedimentatio n rate-westerg madiha 25 mm/HR 0-32 Not Available [facility] ([facility]) [address] [facility], [place], [address], 02/10/2024 12:36:40 02/08/20 24 02/09/2024 C-DARÍO CTIVE PROTE IN, QUANT C-reactive protein, quant 8 mg/L 0-10 Not Available [facility] ([facility]) [address] [facility], [place], [address], 02/10/2024 12:36:40 02/08/20 24 02/09/2024 KAVYA+L IPASE amylase 43 U/L 31-110 Not Available [facility] ([facility]) [address] [facility], [place], [address], 02/10/2024 12:36:41 02/08/20 24 02/09/2024 KAVYA+L IPASE lipase 36 U/L 14-72 Not Available [facility] ([facility]) [address] [facility], [place], [address], 02/10/2024 12:36:41 02/26/20 24 02/20/2024 US, abdom en, compl ete No observ ation record ed. [facility] [address], [place], [address], 02/27/2024 14:54:56 02/26/20 24 02/20/2024 RF, upper gastr ointe evert l tract , w/ contr ast PO No observ ation record ed. [facility] [address], [place], [address], 02/27/2024 14:54:56 05/04/20 24 05/04/2024 MRI, liver , w/wo contr ast No observ ation record ed. [facility] [address] [place] [address], [place], [address], 05/05/2024 10:52:05 05/26/20 24 05/20/2024 CT, chest , w/ contr ast No observ ation record ed. [facility] [address] [facility], [place], [address], 05/26/2024 16:00:03 05/26/20 24 05/20/2024 CT, pelvi s, w/ contr ast No observ ation record ed. [facility] [address] [facility], [place], [address], 05/26/2024 16:00:03 08/05/20 24 08/05/2024 CT, abdom en + pelvi s, w/ contr ast No observ ation record ed. [facility] [id number], [place], [address], 08/06/2024 13:56:27 Result Notes None recorded. Problems Name Problem SNOMED Code Status Onset Date Resolution Date Notes Provider Name and Address Organization Details Recorded Time Acid reflux 035034371 Active 2023 ELIZABETH Najera Attn: Pankaj michelle,[address] [place], [address], [place] [facility] 19:55:53 Hyperlipide maldonado 78316580 Active 2023 ELIZABETH Najera Attn: Pankaj michelle,[address] [place], [address], [place] [facility] 4 19:55:55 Generalized anxiety disorder 38189458 Active 2023 ELIZABETH Najera Attn: Pankaj michelle,[address] [facility], [place], [address], [place] [facility] 4 19:55:57 Pain of multiple joints 50189683 Active 2023 ELIZABETH Najera Attn: Pankaj michelle,[address] [facility], [place], [address], [place] [facility] 4 19:56:01 Body mass index 30+ - obesity 910863276 Active 2024 Corinna Jerry [place] null, [place] [facility] 14:31:13 Positive screening for depression on PHQ-9 (Patient Health Questionnai re 9) 3159692025264 00 Active 2024 ELIZABETH Najera Attn: Accountin g,[address] [facility], [place], [address], [place] [facility] 13:21:53 Fatigue 37306021 Active 2024 ELIZABETH Najera Attn: Accountin g,[address] [facility], [place], [address], [place] [facility] 5 13:21:54 Obesity 471335141 Active 2024 ELIZABETH Najera Attn: Accountin g,[address] [facility], [place], [address], [place] [facility] 13:22:01 Impaired glucose tolerance 8323727 Active 2024 ELIZABETH Najera Attn: Accountin g,[address] [facility], [place], [address], [place] [facility] 5 13:22:17 Hypothyroid ism 59587204 Active 2024 ELIZABETH Najera Attn: Accountin g,[address] [facility], [place], [address], [place] [facility] 13:22:29 Problem Notes None recorded. Procedures Surgical History None recorded. Imaging Results Imaging Date Name Status LastModified by Organization Details LastModified Time 02/20/2024 US, abdomen, complete completed [facility] [address], [place], [address], 02/27/2024 14:54:56 02/20/2024 RF, upper gastrointestinal tract, w/ contrast PO completed [facility] [address], [place], [address], 02/27/2024 14:54:56 05/04/2024 MRI, liver, w/wo contrast completed [facility] [address] [facility], [place], [address], 05/05/2024 10:52:05 05/20/2024 CT, chest, w/ contrast completed [facility], [place], [address], 05/26/2024 16:00:03 05/20/2024 CT, pelvis, w/ contrast completed [facility], [place], [address], 05/26/2024 16:00:03 08/05/2024 CT, abdomen + pelvis, w/ contrast completed [address] [facility] [address], [place], [address], 08/06/2024 13:56:27 Procedure Notes None recorded. Medical Equipment None Reported. Allergies No known drug allergies Medications Name Sig Start Date Stop Date Status Note LastModified by Organization Details LastModified Time atorvastati n 10 mg tablet TAKE 1 TABLET BY MOUTH EVERY DAY active Not Available Not Available No t Available metronidazo le 0.75 % (37.5 mg/5 gram) vaginal gel INSERT 1 APPLICATO RFUL VAGINALLY AT BEDTIME FOR 5 NIGHTS 02/04 completed Not Available Not Available Not Available prednisone 20 mg tablet TAKE 2 TABLETS BY MOUTH DAILY FOR 3 DAYS THEN TAKE 1 TABLET BY MOUTH DAILY FOR 3 DAYS 02/04 completed Not Available Not Available Not Available spironolact one 100 mg tablet TAKE 1 TABLET BY MOUTH EVERY DAY active Not Available Not Available No t Available doxycycline monohydrate 100 mg tablet TAKE 1 TABLET BY MOUTH TWICE DAILY 02/04 completed Not Available Not Available Not Available alprazolam 0.25 mg tablet TAKE 1 TABLET BY MOUTH THREE TIMES DAILY NEEDED 02/04 completed Not Available Not Available Not Available omeprazole 10 mg capsule,del ayed release Take 2 capsules every day by oral route. 02/04 completed Not Available Not Available Not Available dexamethaso ne 1 mg tablet TAKE 1 TABLET BY MOUTH AT 10PM THE NIGHT BEFORE 8AM CORTISOL 02/04 completed Not Available Not Available Not Available levothyroxi ne 50 mcg tablet TAKE 1 TABLET BY MOUTH DAILY IN THE MORNING ON AN EMPTY STOMACH active Not Available Not Available No t Available pantoprazol e 40 mg tablet,merry yed release TAKE 1 TABLET BY MOUTH EVERY DAY active Not Available Not Available No t Available clotrimazol e-betametha sone 1 %-0.05 % topical cream APPLY TO VULVAR AREA TWICE DAILY FOR 7 DAYS 02/04 completed Not Available Not Available Not Available ergocalcife rol (vitamin D2) 1,250 mcg (50,000 unit) capsule TAKE 1 CAPSULE BY MOUTH WEEKLY active Not Available Not Available No t Available albuterol sulfate HFA 90 mcg/actuati on aerosol inhaler USE 2 PUFFS BY MOUTH FOUR TIMES DAILY NEEDED FOR SHORTNESS OF BREATH OR WHEEZING 02/04 completed Not Available Not Available Not Available ondansetron 4 mg disintegrat ing tablet DISSOLVE 1 TABLET ON THE TONGUE EVERY 8 HOURS NEEDED FOR NAUSEA OR VOMITING 02/04 completed Not Available Not Available Not Available fluoxetine 20 mg capsule TAKE 1 CAPSULE BY MOUTH EVERY DAY active Not Available Not Available No t Available metformin ER 500 mg tablet,exte nded release 24 hr TAKE 1 TABLET BY MOUTH DAILY WITH THE EVENING MEAL active Not Available Not Available No t Available amoxicillin 875 mg-potassiu m clavulanate 125 mg tablet TAKE 1 TABLET BY MOUTH EVERY 12 HOURS FOR 10 DAYS 02/04 completed Not Available Not Available Not Available hydroxyzine pamoate 25 mg capsule TAKE 1 CAPSULE BY MOUTH TWICE DAILY NEEDED FOR BREAKTHRO UGH ANXIETY active Not Available Not Available No t Available levonorgest rel 0.15 mg-ethinyl estradiol 30 mcg tablets,3 mos pack(91) TAKE 1 TABLET BY MOUTH DAILY 02/04 completed Not Available Not Available Not Available ProChamber USE DIRECTED 02/04 completed Not Available Not Available Not Available Slynd 4 mg (28) tablet TAKE 1 TABLET BY MOUTH DAILY active Not Available Not Available No t Available Vitals Date Recorded Body height Body mass index (BMI) Body weight Respiratory rate Oxygen saturation Oxygen saturation in Arterial blood by Pulse oximetry Heart rate Systolic blood pressure Diastolic blood pressure Provider Name and Address Organization Details Last Updated DateTime 160.02 cm 35.1 kg/m2 59264.2 9 g 18 /min 98 % 98 % 91 /min 124 mm[Hg] 98 mm[Hg] Corinna Jerry MA [facility] 14:26:59 Date Recorded Systolic blood pressure Diastolic blood pressure Provider Name and Address Organization Details Last Updated DateTime 02/05/2024 118 mm[Hg] 80 mm[Hg] ELIZABETH Najera Attn: Accounting,[address] [place], [address], [facility] 02/05/2024 14:53:34 Date Recorded Body height Body mass index (BMI) Body weight Respiratory rate Oxygen saturation Oxygen saturation in Arterial blood by Pulse oximetry Heart rate Systolic blood pressure Diastolic blood pressure Provider Name and Address Organization Details Last Updated DateTime 5 160.02 cm 35.4 kg/m2 35364.4 7 g 18 /min 98 % 98 % 106 /min 136 mm[Hg] 86 mm[Hg] Corinna Jerry MA [facility] 14:32:36 Date Recorded Systolic blood pressure Diastolic blood pressure Provider Name and Address Organization Details Last Updated DateTime 02/04/2025 110 mm[Hg] 84 mm[Hg] ELIZABETH Najera Attn: Accounting,[address] [place], [address], [facility] 02/04/2025 15:06:58 Social History Question Answer Notes LastModified by Organizat ion Details LastModified Time Tobacco Smoking Status Never Smoker Corinna Jerry MA null, [facility] 02/05/2024 14:24:39 Do You Have An Advance Directive? No Information n ot available 02/05/2024 What Is Your Level Of Alcohol Consumption? Occasional Information not available 02/05/2024 Are You Blind Or Do You Have Difficulty Seeing? No Information n ot available 02/05/2024 What Is Your Level Of Caffeine Consumption? Occasional Soda Information not available 02/05/2024 In The 14 Days Before Symptom Onset, Have You Had Close Contact With A Laboratory-confirm ed COVID-19 While That Case Was Ill? No Information n ot available 02/05/2024 In The 14 Days Before Symptom Onset, Have You Had Close Contact With A Person Who Is Under Investigation For COVID-19 While That Person Was Ill? No Information not available 02/05/2024 Have You Been To An Area Known To Be High Risk For COVID-19? No Information not available 02/05/2024 Are You Currently Employed? Yes Information not available 02/04/2025 Are You Deaf Or Do You Have Serious Difficulty Hearing? No Information not available 02/05/2024 What Type Of Diet Are You Following? REGULAR Information n ot available 02/05/2024 Are There Any Guns Present In Your Home? No Information not available 02/05/2024 What Was The Date Of Your Most Recent Tobacco Screening? 02/04/2025 Information not available 02/04/2025 Do You Use Your Seat Belt Or Car Seat Routinely? Yes Information not available 02/05/2024 Do You Have Smoke And Carbon Monoxide Detectors In Your Home? Yes Information not available 02/05/2024 Do You Use Any Illicit Or Recreational Drugs? No Information not available 02/05/2024 Do You Use Sunscreen Routinely? Yes Information not available 02/05/2024 Has Tobacco Cessation Counseling Been Provided? No Information not available 02/05/2024 Do You Or Have You Ever Used Any Other Forms Of Tobacco Or Nicotine? No Information not available 02/05/2024 Sex: Female Functional Status Question Answer Note LastModified by Organization D etails LastModified Time Are you able to care for yourself? Yes Information n ot available 02/05/2024 What is your exercise level? None Information not available 02/05/2024 Mental Status None recorded. Family History Nothing Reported. Medical History No medical history recorded. Gynecological History Statement/Question Response Flow Heavy Date of LMP 07/30/2024 Menses Monthly Y Duration of Flow (days) 2 Current Control Method BCPs LMP Approximate Obstetrics History GPAL:G 0 P 0 0 0 0 Immunizations Vaccine Type Date Status Note Provider Olvin escamilla and Address Organization Details Recorded Time Influenza, split virus, quadrivalent, PF 08/25/2020 completed Corinna Jerry MA [place], [place] - [facility] 02/04/2025 14:30:56 Past Encounters Encounter ID Performer Location Encounter Start Date Encounter Closed Date Diagnosis/Indication Diagnosis SNOMED-CT Code Diagnosis ICD10 Code Diagnosis Note [id number] ELIZABETH Najera [facility] [employer] [address] [place] [address] 02/05/2024 13:54:14 02/05/2024 14:57:59 Acid reflux 803776216 K21.9 d/c OTC omeprazole and trial of pantoprazo le 40mg daily. . check UGI series. Upper abdominal pain 831 95214 R10.10 check u/s abdomen and labs including amylase and lipase. Hyperlipidemia 59067917 E78.5 due for fasting lipids. refill low dose statin. Diabetes m ellitus screening 107606318 Z13.1 screening A1c due Thyroid di sorder screening 357877499 Z13.29 routine thyroid screening ordered. Eruption 336443666 R21 ROS positive for facial rash often now. [employer]. check ADDIS w/multiple x panel Pain of mu ltiple joints 42803813 M25.50 ROS reports: sporadic episodes of joint pains. check RA panel and CRP and ESR. Vomiting 463984107 R11.1 0 she calls them attacks ; even had them in middle school. await UGI testing results. Generalize d anxiety disorder 46289855 F41.1 stable on fluoxetine 20mg daily. [id number] [facility] [employer] [address] [place] [address] 02/04/2025 14:09:23 02/04/2025 15:11:42 Positive screening for depression on PHQ-9 (Patient Health Questionnaire 9) 2923825318 22470 Z13.31 Patient scored an 8 on screening today. She is stable on her fluoxetine 20 mg daily Body mass index 30+ - obesity 396170274 Z68.35 BMI is 35.4 Obesity 497874152 E66.9 discussed healthy diet, exercise, controllin g carbohydra nestor and added sugars in the diet Fatigue 67710269 R53.83 Home sleep study evaluation as stated above Adult heal th examination 326158499 Z00.00 Annual wellness exam completed Sleep apnea 23814898 G47 .30 High suspicion for sleep apnea with severe fatigue and daytime somnolence refer for home sleep study Impaired g lucose tolerance 1229023 R73.03 5.7%a1c. follows with dr. sabrina dean. On metformin therapy Generalize d anxiety disorder 11569644 F41.1 stable on fluoxetine 20mg daily. trial of hydroxyzin e 25mg cap Hyperlipidemia 91187664 E78.5 due for fasting lipids. refill low dose statin. Acid reflux 171669576 K2 1.9 d/c OTC omeprazole and trial of pantoprazo le 40mg daily. . check UGI series. Hypothyroidism 11616191 E03.9 Patient also follows with Dr. Sabrina dean for thyroid supplement . Levothyrox ine 50 mcg daily Health Concerns Section Related Observation LastModified by Organization Detai ls LastModified Time None Recorded Concern Status LastModified by Organization Details LastModified Time None Recorded Advance Directives Directive N: Payers Encounter Date Sequence Insurance Name Policy Number Policy Leo Covered Member ID Leo Member ID Guarantor Name 02/05/2024 1 [facility] [id number] [facility] [id number] [facility] 02/04/2025 1 [facility] [id number] [facility] [id number] [facility] Notes Date Note Type Note Provider Name and Address Organization Details Recorded Time 02/05/20 24 text/htm l hx of colonoscopy 2022, all normal Dr. Ridley. ELIZABETH Najera Attn: [employer] [facility], [place], [address], [facility] 02/29/2024 20:16:46 02/05/20 25 text/htm l Anxiety/DepressionReported bypatient.Notes:Stable on fluoxetine 20 mg daily for generalized anxietyFatigueReported bypatient.Notes:Persistent fatigue very limiting, daytime somnolence, apnea suspected at nightHyperlipidemiaReported bypatient.Notes:Patient does have a history of high cholesterol and is on atorvastatin 10 mg dailyReflux/GERDReported bypatient.Notes:Acid reflux is managed with pantoprazole 40 mg dailyThyroidReported bypatient.Notes:Patient reports being diagnosed with hypothyroidism from endocrinology and is on thyroid supplement now hx of colonoscopy 2022, all normal Dr. Ridley. ELIZABETH Najera Attn: [employer] [place], [address], [facility] 02/11/2025 13:23:06 OBGyn Episode No OBEpisode recorded.
--- OUTSIDE RECORDS SUMMARY | 2025-03-02 09:09 | XMS_ITS | Clinical Summary ---
Author Organization [facility] Address [address] [place] [address] Care Team Providers Care Crime Scene Technician Name Role Phone Deysi Barron Primary Care Provider [phone] Social History Tobacco Use Types Packs/Day Years Used Date Smoking Tobacco: Never Assessed Comments Unknown Sex and Gender Information Value Date Recorded Sex Assigned at Not on file Legal Sex Female 7:12 AM CDT Gender Identity Not on file Sexual Orientation Not on file Plan of Treatment Health Maintenance Due Date Last Done Comments Cervical Cancer Screening Pa p Smear (Age 30 to 64) Every 3 Years 1994 Annual Physical 1997 Hepatitis C 2012 DTaP, Tdap and Td Vaccines ( 1 - Tdap) 2013 Hepatitis B Vaccines (1 of 3 - 19+ 3-dose series) 2013 COVID-19 Vaccine (2023-2 5 season) 2024 Cervical Cancer Screening Pa p with HPV Testing (Age 30 to 64) Every 5 Years 2024 Cervical Cancer Screening with HPV 2024 HPV Vaccines Aged Out No longer eligi ble based on patient's age to complete this topic Meningococcal B Vaccine Aged Out No l onger eligible based on patient's age to complete this topic Meningococcal Vaccine Aged Out No lou evon eligible based on patient's age to complete this topic Pneumococcal Vaccine: Pediat rics (0 to 5 Years) and At-Risk Patients (6 to 49 Years) Aged Out No longer eligible b ased on patient's age to complete this topic RSV Immunizations Under 20 Months Aged Out No longer eligible based on patient's age to complete this topic Insurance [facility] Care Teams Crime Scene Technician Relationship Specialty Start Date End Date Deysi Barron PA [address] [place] [id number] PCP - General 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
--- OUTSIDE RECORDS SUMMARY | 2025-03-02 09:09 | XMS_ITS | Data Portability ---
Author Organization [facility], Main Office Address [address] [place] [address] Assessment No assessment recorded. Plan of Treatment Reminders Order Date Submit Date Provider Last Modified By Organization Details Last Modified Time Details Appointments None recorded. Lab CBC w/ auto diff 023 023 [facility], 2022 Tamika Vivar, [address], [place], [address], 3 10:39:47 CMP, serum or plasma 023 023 [facility], 2022 Tamika Vivar, [address], [place], [address], 3 10:39:46 TSH + free T4, serum 023 023 [facility], 2022 Tamika Vivar, [address], [place], [address], 3 10:39:46 vitamin B12 + folate, serum or blood 023 023 [facility], 2022 Tamika Vivar, [address], [place], [address], 3 10:39:46 lipid panel, serum 023 023 [facility], 2022 Tamika Vivar, [address], [place], [address], 3 10:39:46 HbA1c (hemoglob in A1c), blood 023 023 [facility], 2022 Tamika Vivar, [address], [place], [address], 3 10:39:46 Referral None recorded. Procedures None recorded. Surgeries None recorded. Imaging None recorded. Medication Orders None recorded. Patient TargetsNo targets recorded. Patient InstructionsNo instructions recorded. Reason for Referral None Reported. Results Created Date Observation Date Name Description Value Unit Range Abnormal Flag Note LastModifiedBy Organization Detail LastModifiedTime 11/02/20 22 11/01/2022 diagn ostic colon oscop y (PROC ) No observ ation record ed. [email or web address] Mushtaq Ridley MD [address], [place], [address], 07/18/2023 10:10:48 Result Notes None recorded. Problems Name Problem SNOMED Code Status Onset Date Resolution Date Notes Provider Name and Address Organization Details Recorded Time Diabetes mellitus screening Active 2021 Not Available [facility] 3 13:52:11 Obsessive-com pulsive disorder 332026268 Active 2021 Not Available [facility] 3 13:52:11 Generalized anxiety disorder 81296215 Active 2021 Not Available [facility] 3 13:52:11 Gastroesophag eal reflux disease 473283130 Active 2019 Not Available [facility] 3 13:52:11 Chronic constipation 476658243 Active 2021 Not Available [facility] 3 13:52:11 Gastroesophag eal reflux disease without esophagitis 000822353 Active 2021 Not Available [facility] 3 13:52:11 Long-term drug therapy Active 2021 Not Available [facility] 3 13:52:11 Adult health examination Active 2021 Not Available [facility] 3 13:52:11 Cholesterol screening Active 2021 Not Available [facility] 3 13:52:11 Enthesopathy of hip region 29446287 Active Not Available [facility] 3 13:52:11 Anxiety 68153962 Active 2019 OCD Not Available [facility] 3 13:52:11 Hyperlipidemi a 55163129 Active 2021 Elissa Antoine, MARY null, [place] [facility] 3 12:45:09 COVID-19 979947102 Active 2021 Not Available [facility] 3 13:52:12 Problem Notes None recorded. Procedures Surgical History Date Name Laterality Status Provider Name and Address Organization Details Recorded Time plastic repair procedure completed Not Available [facility] 01/02/2023 13:51:51 extraction of wisdom tooth completed Not Available [facility] 01/02/2023 13:51:51 Oral surgery procedure completed Not Available [facility] 01/02/2023 13:51:51 Imaging Results Imaging Date Name Status LastModified by Organiz ation Details LastModified Time 11/01/2022 diagnostic colonoscopy (PROC) completed [email or web address] Mushtaq Ridley MD [address] [facility] [address], [place], [address], 07/18/2023 10:10:48 Procedure Notes None recorded. Medical Equipment None Reported. Allergies No known drug allergies Medications Name Sig Start Date Stop Date Status Note LastModified by Organization Details LastModified Time atorvastati n 10 mg tablet TAKE 1 TABLET BY MOUTH EVERY NIGHT AT BEDTIME 2022 active Not Available Not Available Not Avai lable hydrocodone 5 mg-acetamin ophen 325 mg tablet TAKE 1 TABLET BY MOUTH EVERY 6 HOURS NEEDED FOR PAIN 04/26 completed Not Available Not Available Not Available spironolact one 100 mg tablet TAKE ONE TABLET BY MOUTH DAILY active Not Available Not Available No t Available fluoxetine 10 mg tablet TAKE 1 TABLET BY MOUTH EVERY DAY active Not Available Not Available No t Available omeprazole 40 mg capsule,del ayed release TAKE 1 CAPSULE BY MOUTH TWICE DAILY 04/26 completed Not Available Not Available Not Available fluoxetine 20 mg tablet TAKE 1 TABLET BY MOUTH EVERY DAY 06/20 completed Not Available Not Available Not Available sertraline 25 mg tablet take 2 tabs po qhs 06/30 completed Not Available Not Available Not Available ibuprofen 600 mg tablet TAKE 1 TABLET BY MOUTH EVERY 6 HOURS NEEDED FOR PAIN 04/26 completed Not Available Not Available Not Available fluoxetine 20 mg capsule TAKE 1 CAPSULE BY MOUTH EVERY DAY 2022 active Not Available Not Available Not Avai lable sertraline 50 mg tablet TK 1 T PO QHS 04/26 completed Not Available Not Available Not Available spironolact one 50 mg tablet TK ONE T PO BID WITH FOOD 04/26 completed Not Available Not Available Not Available amoxicillin 875 mg-potassiu m clavulanate 125 mg tablet TAKE 1 TABLET BY MOUTH EVERY 12 HOURS FOR 10 DAYS 06/20 completed Not Available Not Available Not Available levonorgest rel 0.15 mg-ethinyl estradiol 30 mcg tablets,3 mos pack(91) TAKE 1 TABLET BY MOUTH DAILY active Not Available Not Available No t Available chlorhexidi ne gluconate 0.12 % mouthwash SWISH 20ML IN THE MOUTH GENTLY FOR 30 SECONDS EVERY 8 HOURS THEN SPIT. RINSE MOUTH 04/26 completed Not Available Not Available Not Available Pepcid AC 2021 active Not Available Not Available Not Avai lable Linzess 72 mcg capsule Take 1 capsule every day by oral route. 12/20 completed Not Available Not Available Not Available Trulance 3 mg tablet Take 1 tablet every day by oral route. active Not Available Not Available No t Available COVID-19 test specimen collection TEST DIRECTED TODAY 06/19 completed Not Available Not Available Not Available Paxlovid 300 mg (150 mg x 2)-100 mg tablets in a dose pack TAKE 2 NIRMATREL VIR TABLETS AND 1 RITONAVIR TABLET TOGETHER BY MOUTH TWICE DAILY FOR 5 DAYS 06/20 completed Not Available Not Available Not Available Vitals Date Recorded Body mass index (BMI) Body height Oxygen saturation Oxygen saturation in Arterial blood by Pulse oximetry Heart rate Body temperature Body weight Systolic blood pressure Diastolic blood pressure Provider Name and Address Organization Details Last Updated DateTime 1 31.7 kg/m2 160.02 cm 98 % 98 % 115 /min 97.6 [degF] 41152.3 2 g 112 mm[Hg] 70 mm[Hg] Not Available [facility] 3 13:51:53 Date Recorded Body mass index (BMI) Body height Oxygen saturation Oxygen saturation in Arterial blood by Pulse oximetry Heart rate Respiratory rate Body temperature Body weight Systolic blood pressure Diastolic blood pressure Provider Name and Address Organization Details Last Updated DateTime 2 33.5 kg/m2 160.02 cm 97 % 97 % 114.01 /min 16 /min 97.7 [degF] 74757.6 8 g 122 mm[Hg] 80 mm[Hg] Not Available [facility] 3 13:51:53 Date Recorded Body mass index (BMI) Body height Oxygen saturation Oxygen saturation in Arterial blood by Pulse oximetry Heart rate Respiratory rate Body temperature Body weight Systolic blood pressure Diastolic blood pressure Systolic blood pressure Diastolic blood pressure Provider Name and Address Organization Details Last Updated DateTime 2 34.5 kg/m2 160.02 cm 97 % 97 % 119 /min 16 /min 97.6 [degF] 32854.0 8 g 128 mm[Hg] 82 mm[Hg] 120 mm[Hg] 80 mm[Hg] Not Available [facility] 3 13:51:53 Date Recorded Body weight Body mass index (BMI) Body height Body temperature Heart rate Oxygen saturation Oxygen saturation in Arterial blood by Pulse oximetry Systolic blood pressure Diastolic blood pressure Provider Name and Address Organization Details Last Updated DateTime 3 23887.4 7 g 36.6 kg/m2 157.48 cm 98.1 [degF] 105 /min 98 % 98 % 122 mm[Hg] 84 mm[Hg] Sena Casey RN [facility] [employer] 3 10:05:33 Social History Question Answer Notes LastModified by Organizat ion Details LastModified Time Tobacco Smoking Status Never Smoker KIMO Mei, [employer] 07/18/2023 09:50:36 What Is Your Level Of Alcohol Consumption? Occasional [id number] Information not available 01/02/2023 What Is Your Level Of Caffeine Consumption? Moderate [id number] Information not available 01/02/2023 How Much Tobacco Do You Chew? None [id number] Information not available 01/02/2023 In The 14 Days Before Symptom Onset, Have You Had Close Contact With A Laboratory-confir med COVID-19 While That Case Was Ill? No Information not available 07/18/2023 In The 14 Days Before Symptom Onset, Have You Had Close Contact With A Person Who Is Under Investigation For COVID-19 While That Person Was Ill? No Information not available 07/18/2023 Are You Currently Employed? Yes Information not available 07/18/2023 What Type Of Diet Are You Following? REGULAR [id number] Information not available 01/02/2023 Which Illicit Or Recreational Drugs Have You Used? None Information not available 07/18/2023 Do You Or Have You Ever Used E-cigarettes Or Vape? 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 No Information no t available 07/18/2023 Do You Use Insect Repellent Routinely? No Information not available 07/18/2023 What Is Your Relationship Status? Single [id number] Information not available 01/02/2023 Do You Use Your Seat Belt Or Car Seat Routinely? Yes Information not available 07/18/2023 Do You Have Smoke And Carbon Monoxide Detectors In Your Home? Yes Information not available 07/18/2023 Do You Or Have You Ever Used Smokeless Tobacco? Never Used Smokeless Tobacco [id number] Information not available 01/02/2023 How Much Tobacco Do You Smoke? No [id number] Information not available 01/02/2023 Do You Use Any Illicit Or Recreational Drugs? No Information not available 07/18/2023 Do You Use Sunscreen Routinely? Yes Information not available 07/18/2023 Have You Recently Traveled Abroad? No Information not available 07/18/2023 Do You Have Any Dietary Restrictions? No Information not available 07/18/2023 Do You Or Have You Ever Used Any Other Forms Of Tobacco Or Nicotine? No Information not available 07/18/2023 Sex: Unknown Functional Status Question Answer Note LastModified by Organizat ion Details LastModified Time What is your exercise level? None [id number] Information not available 01/02/2023 Mental Status None recorded. Family History Relationship Description Onset Age of this Age Resolved Age Notes LastModified by Organization Details LastModified Time Mother Guillain-Bar r syndrome 1984 Not available 2022 09:50:35 Father Myocardial infarction [id number] Not available 01/02/2023 13:51:51 Paternal Grandfather Myocardial infarction [id number] Not available 01/02/2023 13:51:51 Medical History Condition Response SKIN PROBLEMS Y HEADACHES/MIGRAINES Y ANXIETY DISORDER Y BOWEL PROBLEMS Y HEARTBURN / REFLUX Y Gynecological HistoryNo gynecological history recorded. Obstetrics History GPAL:G 0 P 0 0 0 0 Past Encounters Encounter ID Performer Location Encounter Start Date Encounter Closed Date Diagnosis/Indication Diagnosis SNOMED-CT Code Diagnosis ICD10 Code Diagnosis Note [id number] [facility] [address] [place] [address] 04/26/2021 00:00:00 04/26/2021 15:00:11 [id number] [facility] [address] [place] [address] 12/20/2021 00:00:00 12/31/2021 22:38:06 [id number] [facility] [address] [place] [address] 06/20/2022 00:00:00 07/01/2022 19:36:02 [id number] ELIZABETH Najera [facility] [address] [place] [address] 07/18/2023 09:45:40 07/18/2023 10:30:36 Adult health examination 357062663 Z00.01 well exam completed Diabetes m ellitus screening 716998283 Z13.1 screening a1c is due Long-term drug therapy 123585220 Z79.899 routine CBC, CMP, TFTs and B12, folate due Hyperlipidemia 95747455 E78.5 on atorvastat in 10mg daily. due for fasting lipids. Obsessive- compulsive disorder 254190660 F42.9 stable on fluoxetine 20mg daily. Generalize d anxiety disorder 26971843 F41.1 stable on fluoxetine 20mg daily. Health Concerns Section Related Observation LastModified by Organization Detai ls LastModified Time None Recorded Concern Status LastModified by Organization Details LastModified Time None Recorded Advance Directives Directive None Recorded Payers Encounter Date Sequence Insurance Name Policy Number Policy Leo Covered Member ID Leo Member ID Guarantor Name 07/18/2023 1 [facility] [id number] Maddie Santana [id number] Maddie Renee Notes Date Note Type Note Provider Name and Address Organization Details Recorded Time 04/26/20 21 text/htm l Anxiety/DepressionReported bypatient.Severity:denies suicidal ideations; able to maintain relationships; does not interfere with activities of daily living Context:no major life stressors Associated Symptoms:denies homicidal ideations; no significant weight gain; no significant weight loss; no visual/auditory hallucinations; no delusions; no shortness of breath; mood good; no anxiety; no crying spells; no panic; no isolation; sleeping well; appetite good; energy good; no apathy; maintaining functionality Notes:OCD hx as well. fluoxetine is helping.ConstipationReported bypatient.Quality:decreased frequency;decreased amount Severity:moderate Duration:lifelong Onset/Timing:once every three days Contextno recent opiates; no recent surgery; no anemia; no history of IBS; no history of colonoscopy Alleviating Factors:having bowel movement Associated Symptoms:no abdominal pain; no nausea; no blood in stool; no black or tarry stoolsReflux/GERDReported bypatient.Associated Symptoms:no shortness of breath; no weight lossNotes:stable on only on pepcid OTC Now. Not Available [facility] [employer] [facility] 04/26/2021 15:00:11 12/20/19 22 text/htm l Anxiety/DepressionReported bypatient.Quality:symptoms worse in the evening; doesnt matter time of day but maybe more in the evening Severity:denies suicidal ideations; able to maintain relationships;interference with household activities;interference with sleep;interference with work Duration:symptoms lasting over 2 weeks Onset/Timing:still present Context:no major life stressors Modifying Factors:medications as directed Associated Symptoms:denies homicidal ideations; no significant weight gain; no significant weight loss; no visual/auditory hallucinations; no delusions; no shortness of breath; mood good; no anxiety; no crying spells; no panic; no isolation; sleeping well; appetite good; energy good; no apathy; maintaining functionalityReflux/GERDRepo rted bypatient.Symptomsasymptomat ic; no difficulty swallowing; no pain swallowing; no postprandial pain Severity:same Duration:present 5 or more years Onset/Timing:gone now Context:non-smoker; no drug/alcohol abuse; no drug alcohol withdrawal; not related to food/drink 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 Associated Symptoms:no frequent coughing; no hoarseness; no food getting stuck; no belching/burping; no vomiting; not vomiting blood; no regurgitation; no shortness of breath; no chest pain; no heartburn; no difficulty swallowing; no pain when swallowing; no bad taste; no decreased appetite; no weight loss; no black/tarry stools; no fatigue; no throat pain; no dental erosion; no bloating; no early satiety; no halitosis Not Available [facility] 12/31/2021 22:38:06 06/20/20 22 text/htm l Anxiety/DepressionReported bypatient.Quality:doesnt matter time of day Severity:denies suicidal ideations; able to maintain relationships; does not interfere with activities of daily living Duration:symptoms lasting over 2 weeks Onset/Timing:still present Context:no major life stressors Modifying Factors:medications as directed Associated Symptoms:denies homicidal ideations; no significant weight gain; no significant weight loss; no visual/auditory hallucinations; no delusions; no shortness of breath; mood good; no anxiety; no crying spells; no panic; no isolation; sleeping well; appetite good; energy good; no apathy; maintaining functionalityReflux/GERDRepo rted bypatient.Symptomsasymptomat ic; no difficulty swallowing; no pain swallowing; no postprandial pain Severity:same Duration:present 5 or more years Onset/Timing:still present Context:non-smoker; no drug/alcohol abuse; no drug alcohol withdrawal; not related to food/drink 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 Associated Symptoms:no frequent coughing; no hoarseness; no food getting stuck; no belching/burping; no vomiting; not vomiting blood; no regurgitation; no shortness of breath; no chest pain; no heartburn; no difficulty swallowing; no pain when swallowing; no bad taste; no decreased appetite; no weight loss; no black/tarry stools; no fatigue; no throat pain; no dental erosion; no bloating; no early satiety; no halitosis Not Available [employer] [facility] 07/01/2022 19:36:02 07/18/20 23 text/htm l Anxiety/DepressionReported bypatient.Severity:denies suicidal ideations; able to maintain relationships; does not interfere with activities of daily living Context:no major life stressors Associated Symptoms:denies homicidal ideations; no significant weight gain; no significant weight loss; no visual/auditory hallucinations; no delusions; no shortness of breathNotes:stable with rxHyperlipidemiaReported bypatient.Control:usually well controlled; improving; at goal Compliance:compliant; compliant with diet; exercises Complications:no coronary artery disease; no peripheral artery disease; no cardiovascular diseaseReflux/GERDReported bypatient.Severity:improving Context:non-smoker; no drug/alcohol abuse; no drug alcohol withdrawal; not related to food/drink Associated Symptoms:no frequent coughing; no feeling of fullness/mass in throat; no hoarseness; no food getting stuck; no belching/burping; no vomiting; not vomiting blood; no regurgitation; no shortness of breath; no chest pain; no heartburn; no difficulty swallowing; no pain when swallowing; no bad taste; no decreased appetite; no weight loss; no black/tarry stools; no fatigue; no throat pain wellness ELIZABETH Najera [address] [facility] [address], [place], [address], [facility] [employer] [facility] 08/03/2023 10:23:13 OBGyn Episode No OBEpisode recorded.
--- OUTSIDE RECORDS SUMMARY | 2025-03-02 09:09 | XMS_ITS ---
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 2 month f/u laurence. * Medical History: Objective: * Vitals: Assessment: Plan: * Treatment: * Billing Information: * Visit Code: * Procedure Codes: * Electronic signature of Aaron Watts MD on 03/02/2025 at 09:08 AM CDT Sign off status: Pending * Provider: Patt Watts MD Date: 02/09/2025 Generated for Tim kang/Lien/eTransmitting on: 03/02/2025 09:08 AM CDT
[2025-03-17 13:03] VITALS: BMI 35.4
--- NOTE | 2025-03-17 13:03 | P.SLEEP_ITS ---
Sleep Study - Home Unattended Date of Study: 03/02/25 Ordering Provider: Deysi Barron, MARIANA Interpreting Provider: DO Ap Gonzalez Sleep Study Type: Watch PAT Height: 1.6 m Weight: 90.718 kg Body Mass Index: 35.4 Neck Circumference (inches): 14.25 Embarrass: 7 Reason for Sleep Study Daytime hypersomnia Sleep History The patient is a 29-year-old female that had a sleep study ordered for evaluation of sleep apnea. The patient admits to excessive daytime sleepiness. She denies snoring loudly. She denies interruptions in breathing while asleep. She denies choking or gasping at night. She denies having trouble breathing on her back. She denies morning headaches. She denies having a dry or sore mouth /throat in the morning. She denies nocturnal heartburn. She denies nocturia. She does have trouble falling asleep and staying asleep. She does have difficulty returning to sleep if she wakes up throughout the night. She denies any hypnotic or sedative use. She denies feeling anxious about sleep. She does feel tired or sleepy during the day. She does feel tired in the morning. She does have the urge to fall asleep during the day. She does feel drowsy while driving. She denies sleep paralysis, cataplexy and hypnagogic/ hypnopompic hallucinations. She does clench or grind her teeth. She denies kicking or jerking her legs excessively. She denies having a restless feeling in her legs. She goes to bed at 9:45 p.m. on work days and at 11:00 p.m. on her days off. It takes her 30 minutes to fall asleep. She gets 8 hours of sleep every night. Her sleep is a little more restorative on her days off. She denies taking any planned naps. She denies dream enactment behavior. She denies sleep walking. She consumes 3-4 cups of caffeinated beverage per day. She denies tobacco use. She consumes 1 alcoholic beverage 1-2 nights per week. She denies exercising on a regular basis. [facility] Past Medical History Medical History Depression Hyperlipidemia Social History Social History Smoking status: Never smoker Alcohol intake: current Substance use: never Substance use type: does not use Living arrangements: with family Spiritual care concerns: No Medications Home Medications ?Medication ?Instructions ?Recorded ?Confirmed ?Type atorvastatin 10 mg tablet 10 mg PO DAILY 10/17/22 12/07/23 History fluoxetine 20 mg capsule 20 mg PO DAILY 10/17/22 12/07/23 History levonorgestrel 0.15 mg-ethinyl 1 tablet PO DAILY 10/17/22 12/07/23 History estradiol 30 mcg tablets,3 mos pack(91) spironolactone 100 mg tablet 100 mg PO DAILY 10/17/22 12/07/23 History ondansetron 4 mg disintegrating 4 mg PO Q8H PRN nausea and 08/05/24 Rx tablet vomiting #10 tabs Sleep Procedure The sleep study was completed using [employer] a technically adequate device with seven channels: peripheral arterial tone, actigraphy, body position, snore, respiratory movement, pulse oximetry, sleep staging, and heart rate. Prior to using the device, the patient received verbal and written instructions for its application and was provided with the help desk phone number for additional telephonic instruction with 24-hour availability of qualified personnel to answer questions. The study was scored using [facility] guidelines. Sleep Architecture The total recording time is 8 hrs, 13 min. The total sleep time is 7 hrs, 34 min. Sleep latency is 6 minutes. REM latency is 131 minutes. The patient had 6 episodes of waking. Sleep architecture shows 19.8% deep sleep, 52.9% light sleep, and (as % Total Sleep Time) showed NREM (Light 52.9%; Deep 19.8%), and a 27.3% stage REM. The patient spent 71.4% of total sleep time in the supine position. Sleep efficiency was 92.09. Respiratory Analysis The overall AHI (pAHI 4%:) is 6.7. The overall AHI (pAHI 3%:) is 17.7. The central AHI is 0.7. The AHI was 14.8 in NREM and 25.3 in REM sleep. The AHI was 20.2 in Supine and 11.6 in Non-supine sleep. Percent of Emiliano Miles respirations is 0.0. Oximetry Data The oxygen desaturation index (KELLIE 4%:) is 6.9. The mean saturation is 95%, and the lowest saturation is 84%. Time spent with saturation < 88% is 0.0 minutes. Snoring Profile Snoring average intensity is 42 dB. The patient snored above 45 decibels for 57.4 minutes, 12.6% of sleep time. Cardiac Profile The average pulse rate is 82 beats per minutes. The lowest pulse rate is 66 bpm. The highest pulse rate reported is 120 bpm. Atrial fibrillation was not detected. Premature beats occur <0.1 per minute. Assessment and Plan Assessment and Plan (1) SESAR (obstructive sleep apnea): Code(s): G47.33 - Obstructive sleep apnea (adult) (pediatric) Status: Acute Assessment and Plan: The patient had an overall AHI of 6.7 with desaturation down to 84%. This is consistent with mild sleep apnea. Due to the patient's anxiety, she qualifies for treatment. I recommend that the patient be prescribed AutoPAP 5-15 cm H2O, CPAP mask/filters/tubing and heated humidity. A mandibular advancement device is also an acceptable treatment option. This should be used with all episodes of sleep.? Compliance should be reviewed within 31-90 days of starting therapy for usage greater than 4 hours per night greater than 70% of the nights. The patient should be asked about symptoms such as?excessive daytime sleepiness, quality of sleep, decreased nocturia, increased?mental functioning such as memory, mood, and concentration. Data The data obtained during this sleep study is adequate for interpretation. Certification This sleep study has been reviewed by a board certified sleep medicine physician.
== END 2025-03-03 12:43 | disposition home or self-care (01) ==
LOC: ANHCSM 08:43
PROVIDERS: PCP Physician Assistant; Visit Provider Physician Assistant
DX: G47.33 Obstructive sleep apnea (adult) (pediatric) (principal)
CPT/HCPCS: 95800

== ENCOUNTER 2025-04-01 06:41 | Outpatient (CLI) | payer OTHER, SELFPAY ==
--- NOTE | ~2025-04-01 | MR_ITS ---
EXAMINATION: MR pituitary wo/w con DATE: 04/01/2025 07:50 INDICATION: Disorder of pituitary gland. Assess for pituitary microadenoma. TECHNIQUE: Magnetic resonance imaging (MRI) of the brain and brainstem was performed without and with 19 mL Multihance intravenous contrast. Sequences included sagittal and axial T1-weighted SE, axial d iffusion-weighted FS SE, axial 3D SWAN, axial T2-weighted FLAIR, and axial T2-weighted FSE. Postcontr ast axial and coronal T1-weighted SE was obtained. Apparent diffusion coefficient (ADC) maps were cre ated. COMPARISON: None. FINDINGS: There are no areas of restricted diffusion to suggest acute infarction. No intracranial hemorrhage. T here is a 2-2.5 mm hypoenhancing lesion in the left side of the pituitary consistent with a microaden maria esther. Otherwise normal appearance to the pituitary with normal midline posterior pituitary bright spot and normal midline pituitary stalk. The pituitary does not protrude beyond the cephalad margin of th e sella with normal suprasellar cistern. No other abnormally enhancing brain lesions. There are no in traparenchymal signal abnormalities seen on the other pulse sequences. The ventricles are symmetric a nd normal in size. There are no abnormal extra-axial fluid collections. Flow voids are seen in the ce rebral arteries on the T2-weighted sequences consistent with their expected patency. Visualized orbit s and soft tissues are unremarkable. IMPRESSION: 1. 2-2.5 mm hypoenhancing pituitary lesion consistent with a microadenoma. Reviewed, dictated and finalized at location A.
--- OUTSIDE RECORDS SUMMARY | 2025-04-01 06:46 | XMS_ITS ---
Author Organization [employer] [facility] Address [address] [address] Care Team Providers Care Sales Force Developer Name Role Phone Chyna Watts Primary Care Provider REASON FOR VISIT 2 month f/u laurence Encounters Encounter Location Date Provider Diagnosis [facility] - Chyna Watts [address] [place] [address] 02/09/2025 Chyna Watts Plan Of Treatment No Information Progress Notes * Maddie RENEEDOB: [birth year] (29 yo F)Acc No.[id number]:02/09/2025 Progress Notes Patient: Maddie CANO Provider: Patt Watts MD :1995 A ge:29 Y S ex:Female Date:02/09/2025 Address:[address] [place], [place] [id number] Subjective: * Chief Complaints: * 1 . 2 month f/u laurence. * Medical History: Objective: * Vitals: Assessment: Plan: * Treatment: * Billing Information: * Visit Code: * Procedure Codes: * Electronic signature of Aaron Watts MD on 04/01/2025 at 06:46 AM CDT Sign off status: Pending * Provider: Patt Watts MD Date: 02/09/2025 Generated for Tim kang/Lien/eTransmitting on: 0 04/01/2025 06:46 AM CDT
--- OUTSIDE RECORDS SUMMARY | 2025-04-01 06:46 | XMS_ITS | Data Portability ---
Author Organization [facility], Main Office Address [address] [place] [address] Assessment No assessment recorded. Plan of Treatment Reminders Order Date Submit Date Provider Last Modified By Organization Details Last Modified Time Details Appointments None recorded. Lab CBC w/ auto diff 023 023 [facility], [address], [place], [address], 3 10:39:47 CMP, serum or plasma 023 023 [facility], [address], [address], [place], [address], 3 10:39:46 TSH + free T4, serum 023 023 [facility], [address], [address], [place], [address], 3 10:39:46 vitamin B12 + folate, serum or blood 023 023 [facility], [address], [address], [place], [address], 3 10:39:46 lipid panel, serum 023 023 [facility], [address], [address], [place], [address], 3 10:39:46 HbA1c (hemoglob in A1c), blood 023 023 [facility], [address], [address], [place], [address], 3 10:39:46 Referral None recorded. Procedures None [...] MD [address], [place], [address], 07/18/2023 10:10:48 Result Notes None recorded. Problems Name Problem SNOMED Code Status Onset Date Resolution Date Notes Provider Name and Address Organization Details Recorded Time Diabetes mellitus screening Active 2021 Not Available [facility] 3 13:52:11 Obsessive-com pulsive disorder 046023275 Active 2021 Not Available [facility] 3 13:52:11 Generalized anxiety disorder 05267868 Active 2021 Not Available [facility] 3 13:52:11 Gastroesophag eal reflux disease 334376858 Active 2019 Not Available [facility] 3 13:52:11 Chronic constipation 149664780 Active 2021 Not Available [facility] 3 13:52:11 Gastroesophag eal reflux disease without esophagitis 222830645 Active 2021 Not Available [facility] 3 13:52:11 Long-term drug therapy Active 2021 Not Available [facility] 3 13:52:11 Adult health examination Active 2021 Not Available [facility] 3 13:52:11 Cholesterol screening Active 2021 Not Available [facility] 3 13:52:11 Enthesopathy of hip region 42249136 Active Not Available [facility] 3 13:52:11 Anxiety 24493936 Active 2019 OCD Not Available [facility] 3 13:52:11 Hyperlipidemi a 03919050 Active 2021 MARY Cee null, [place] - [place] [facility] 3 12:45:09 COVID-19 194380551 Active 2021 Not Available [facility] 3 13:52:12 Problem Notes None recorded. Procedures Surgical History Date Name Laterality Status Provider Name and Address Organization Details Recorded Time plastic repair procedure completed Not Available [facility] 01/02/2023 13:51:51 extraction of wisdom tooth completed Not Available [facility] 01/02/2023 13:51:51 Oral surgery procedure completed Not Available [facility] 01/02/2023 13:51:51 Imaging Results None recorded. Procedure Notes None recorded. Medical Equipment None [...] % 114.01 /min 16 /min 97.7 [degF] 16968.6 8 g 122 mm[Hg] 80 mm[Hg] Not Available [facility] 3 13:51:53 Date Recorded Body mass index (BMI) Body height Oxygen saturation Oxygen saturation in Arterial blood by Pulse oximetry Heart rate Body temperature Body weight Systolic blood pressure Diastolic blood pressure Provider Name and Address Organization Details Last Updated DateTime 1 31.7 kg/m2 160.02 cm 98 % 98 % 115 /min 97.6 [degF] 37243.3 2 g 112 mm[Hg] 70 mm[Hg] Not Available [facility] 3 13:51:53 Date Recorded Body mass index [...] % 119 /min 16 /min 97.6 [degF] 57443.0 8 g 128 mm[Hg] 82 mm[Hg] 120 mm[Hg] 80 mm[Hg] Not Available [facility] 3 13:51:53 Date Recorded Body weight Body mass index (BMI) Body height Body temperature Heart rate Oxygen saturation Oxygen saturation in Arterial blood by Pulse oximetry Systolic blood pressure Diastolic blood pressure Provider Name and Address Organization Details Last Updated DateTime 3 76986.4 7 g 36.6 kg/m2 157.48 cm 98.1 [degF] 105 /min 98 % 98 % 122 mm[Hg] 84 mm[Hg] Sena Casey RN [employer] 3 10:05:33 Social History Question Answer Notes LastModified by Organizat ion Details LastModified Time Tobacco Smoking Status Never Smoker KIMO Mei, [employer] 07/18/2023 09:50:36 What Is Your Level Of Caffeine Consumption? Moderate [id number] Information not available 01/02/2023 How Much Tobacco Do You Chew? None [id number] Information not available 01/02/2023 In The 14 Days Before Symptom Onset, Have You Had Close Contact With A Laboratory-confirm ed COVID-19 While That Case Was Ill? No Information n ot available 07/18/2023 In The 14 Days Before Symptom Onset, Have You Had Close Contact With A Person Who Is Under Investigation For COVID-19 While That Person Was Ill? No Information not available 07/18/2023 What Type Of Diet Are You Following? REGULAR [id number] Information not available 01/02/2023 Which Illicit Or Recreational Drugs Have You Used? None Information not available 07/18/2023 Have There Been Any Changes To Your Family Or Social Situation? No Information no t available 07/18/2023 Do You Use Insect Repellent Routinely? No Information not available 07/18/2023 What Is Your Relationship Status? Single [id number] Information not available 01/02/2023 Do You Use Your Seat Belt Or Car Seat Routinely? Yes Information not available 07/18/2023 Do You Have Smoke And Carbon Monoxide Detectors In Your Home? Yes Information not available 07/18/2023 How Much Tobacco Do You Smoke? No [id number] Information not available 01/02/2023 Do You Use Sunscreen Routinely? Yes Information not available 07/18/2023 Have You Recently Traveled Abroad? No Information not available 07/18/2023 Do You Have Any Dietary Restrictions? No Information not available 07/18/2023 Sex: Unknown Functional Status Question Answer Note LastModified by Organizat ion Details LastModified Time Do you use any illicit or recreational drugs? No Information not available 07/18/2023 Do you or have you ever used any other forms of tobacco or nicotine? No Information not available 07/18/2023 What is your level of alcohol consumption? Occasional [id number] Information not available 01/02/2023 Do you or have you ever used smokeless tobacco? Never used smokeless tobacco [id number] Information not available 01/02/2023 Are you currently employed? 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 Never used electronic cigarettes Information not available 07/18/2023 What is your exercise level? None [id number] Information not available 01/02/2023 Mental Status None recorded. Family History Relationship Description Onset Age of this Age Resolved Age Notes LastModified by Organization Details LastModified Time Mother Guillain-Bar r syndrome 1984 Not available 2022 09:50:35 Father Myocardial infarction [id number] Not available 01/02/2023 13:51:51 Paternal Grandfather Myocardial infarction [id number] Not available 01/02/2023 13:51:51 Medical History Condition Response SKIN PROBLEMS Y HEADACHES/MIGRAINES Y ANXIETY DISORDER Y BOWEL PROBLEMS Y HEARTBURN / REFLUX Y Gynecological HistoryNo gynecological history recorded. Obstetrics History GPAL:G 0 P 0 0 0 0 Past Encounters Encounter ID Performer Location Encounter Start Date Encounter Closed Date Diagnosis/Indication Diagnosis SNOMED-CT Code Diagnosis ICD10 Code Diagnosis Note [id number] ELIZABETH Najera [facility] [place] [address] [place] [address] 04/26/2021 00:00:00 04/26/2021 15:00:11 [id number] ELIZABETH Najera [facility] [place] [address] [place] [address] 12/20/2021 00:00:00 12/31/2021 22:38:06 [id number] Ramos Mujica MD [facility] [place] [address] [place] [address] 06/20/2022 00:00:00 07/01/2022 19:36:02 [id number] ELIZABETH Najera [facility] [place] [address] [place] [address] 07/18/2023 09:45:40 07/18/2023 10:30:36 Adult health examination 563959004 Z00.01 well exam completed Diabetes m ellitus screening 947461386 Z13.1 screening a1c is due Long-term drug therapy 289554496 Z79.899 routine CBC, CMP, TFTs and B12, folate due Hyperlipidemia 90010979 E78.5 on atorvastat in 10mg daily. due for fasting lipids. Obsessive- compulsive disorder 377230702 F42.9 stable on fluoxetine 20mg daily. Generalize d anxiety disorder 81510371 F41.1 stable on fluoxetine 20mg daily. Health Concerns Section Related Observation LastModified by Organization Detai ls LastModified Time None Recorded Concern Status LastModified by Organization Details LastModified Time None Recorded Advance Directives Directive None Recorded Payers Encounter Date Sequence Insurance Name Policy Number Policy Leo Covered Member ID Leo Member ID Guarantor Name 07/18/[address] [facility] [id number] Maddie Santana [id number] Maddie Renee Notes Date Note Type Note [...] appetite good; energy good; no apathy; maintaining functionalityNotes:OCD hx as well. fluoxetine is helping.ConstipationReported bypatient.Quality:decreased [...] only on pepcid OTC Now. Not Available [facility] [employer] [facility] [employer] 04/26/2021 15:00:11 12/20/19 22 text/htm l Anxiety/DepressionReported [...] good; energy good; no apathy; maintaining functionality Reflux/GERDReported bypatient.Symptomsasymptomat ic; no difficulty swallowing; no pain [...] no early satiety; no halitosis Not Available [facility] [employer] [facility] 12/31/2021 22:38:06 06/20/20 22 text/htm l Anxiety/DepressionReported [...] good; energy good; no apathy; maintaining functionality Reflux/GERDReported bypatient.Symptomsasymptomat ic; no difficulty swallowing; no pain [...] no early satiety; no halitosis Not Available [employer] 07/01/2022 19:36:02 07/18/20 23 text/htm l Anxiety/DepressionReported [...] no throat pain wellness ELIZABETH Najera [address] [address], [place], [address], [employer] 08/03/2023 10:23:13 OBGyn Episode No OBEpisode recorded.
--- OUTSIDE RECORDS SUMMARY | 2025-04-01 06:46 | XMS_ITS | Clinical Summary ---
Author Organization [facility] Address [address] [place] [address] Care Team Providers Care Hospital Account Manager Name Role Phone Unavailable Primary Care Provider Unavailabl e Source Comments [facility],non-owned Affiliates and Associated Physician Practices is amultiple site organization consisting of ambulatory clinics and hospital sitesin [place], [place], [place] and [place]. This disclosure is being madepursuant to the Care Everywhere program and may not contain all information available regarding this patient. Last updated 18.[facility] ZBD Displays Allergies No known active allergies Medications * Be aware that medications may not be up to date on this document. Alwaysverify current medications with the patient. Levonorgest-Eth Estrad 91-Day (SEASONIQUE PO) Acti ve SPIRONOLACTONE PO Active pantoprazole EC (Protonix) 40 MG tablet Take 1 (one) tablet by mouth once daily Active FLUoxetine (PROzac) 20 MG capsule Take 1 (one) capsule by mouth once daily Active atorvastatin (Lipitor) 10 MG tablet Take 1 (one) tablet by mouth at bedtime Active Encounters Date Type Department Care Team Description 03/30/2025 Results Follow-Up [facility] [address] [facility] [place] [address] Shereen Stokes RN 03/27/2025 7:15 AM CDT - 03/27/2025 11:59 PM CDT Hospital Encounter [facility] MRI [address] [place] [address] Coreen Leon MD Discharge Disposition: Home or Self Care 03/27/2025 Travel 02/11/2025 Orders Only [facility] [address] [facility] [place] [address] Shereen Stokes RN Liver mass, left lobe from Last 3 Months Social History Tobacco Use Types Packs/Day Years Used Date Smoking Tobacco: Never Smokeless Tobacco: Never Tobacco Cessation:Counseling Given: Not Answered Comments No Sex and Gender Information Value Date Recorded Sex Assigned at Not on file Legal Sex Female 2:47 PM CDT Gender Identity Not on file Sexual Orientation Not on file Last Filed Vital Signs Vital Sign Reading Time Taken Comments Blood Pressure 118/86 06/17/2024 10:12 AM CDT Pulse 100 06/17/2024 10:12 AM CDT Temperature 37.5 C (99.5 F) 06/17/2024 10:12 AM CDT Respiratory Rate 12 06/17/2024 10:12 AM CDT Oxygen Saturation 98% 06/17/2024 10:12 AM CDT Inhaled Oxygen Concentration - - Weight 90.3 kg (199 lb) 06/17/2024 10:12 AM CDT Height 160 cm (5' 3) 06/17/2024 10:12 AM CDT Body Mass Index 35.25 06/17/2024 10:12 AM CDT Plan of Treatment Health Maintenance Due Date Last Done Comments PAP SMEAR 1995 HIV SCREENING 2009 HEPATITIS C SCREENING 09/09/2012 DTAP/TDAP/TD VACCINES (1 - Tdap) 2013 HEPATITIS B VACCINE (1 of 3 - 19+ 3-dose series) 2013 COVID-19 VACCINE ( - 2023-2 5 season) 2024 DEPRESSION SCREENING 11/04/2024 INFLUENZA VACCINE (Season Ended) 2025 ZOSTER VACCINE (1 of 2) 2044 HIB VACCINE Aged Out No longer eligi ble based on patient's age to complete this topic HPV VACCINE Aged Out No longer eligi ble based on patient's age to complete this topic MENINGOCOCCAL (Group B) VACC INE SHARED DECISION-MAKING Aged Out No longer eligibl e based on patient's age to complete this topic MENINGOCOCCAL GROUPS A/C/Y/W VACCINE Aged Out No longer eligible b ased on patient's age to complete this topic PNEUMOCOCCAL VACCINE Aged Out No long er eligible based on patient's age to complete this topic Procedures Procedure Name Priority Date/Time Associated Diagnosis Comments MRI ABDOMEN WWO CONTRAST Routine 03/27/2025 7:41 AM CDT Liver mass, left lobe from Last 3 Months Results * MRI Abdomen Wwo Contrast (03/27/2025 7:41 AM CDT) Anatomical Region Laterality Modality Abdomen Magnetic Resonan ce 03/30/2025 8:36 AM CDT Impressions 03/30/2025 11:41 AM CDT Impression: 1. Focal nodular hyperplasia in hepatic segment 4A/4B measuring 4.7 cm remains unchanged. 2. Multiple smaller hepatic masses measuring up to 1.4 cm, are slightly decreased in size or unchanged. These masses do not retain contrast on the hepatobiliary phase, these lesions could be atypical form of FNH. Differential diagnosis is an adenoma. Follow-up in 12-18 months can be helpful for assessment of stability. 3. Moderate hepatic steatosis. > Dictated by Ramos Chan D.O. - Diagnostic Medical Supply Technician. I, Karine Lam MD have personally reviewed and interpreted this examination/study. > Interpreting Provider: Karine Lam MD on 03/30/2025 11:41 AM Narrative 03/30/2025 11:41 AM CDT PROCEDURE: MRI ABDOMEN WWO CONTRAST, DATE/TIME OF EXAM: 03/27/2025 8:09 AM, LOCATION [facility] INDICATION: R16.0: Liver mass, left lobe ADDITIONAL CLINICAL INFORMATION: Ordering Provider Reason For Exam: Assess FNH/adenoma size change Technologist Note: Additional: COMPARISON: Abdominal MRI from 07/11/2024 TECHNIQUE: Noncontrast followed by multiphasic contrast-enhanced MRI examination of was performed using routine multiplanar sequences. MRCP: None. CONTRAST: 9 mL of Eovist was used as intravenous contrast. No procedure related complications seen. IMAGE QUALITY: Average diagnostic quality. Findings: Lower Chest: Lung bases are clear. No pleural effusion seen. Hepatobiliary system Liver morphology: Normal morphology, smooth outline and normal signal intensity. Steatosis: There is moderate diffuse hepatic steatosis. Spleen: Normal. Normal splenic signal intensity. Ascites: None. Focal liver lesions Unchanged hyperenhancing mass in hepatic segment 4A/4B seen on series 25 image 41 measuring 4.7 cm. The mass retains contrast on the hepatobiliary phase, most compatible with a focal nodular hyperplasia. Other masses of the liver are unchanged or slightly decreased in size, for example mass within hepatic segment 8 and series 25 image 17 measuring 1 cm, in hepatic segment 5 on series 25 image 46 measuring 1.4 cm (previously 2 cm) and hepatic segment 6 on series 25 image 44 measuring 7 mm. Previously seen small 3 mm mass seen in segment 8 is not identified on this exam. The smaller lesions do not retain (or faintly enhancing at the periphery) contrast on the hepatobiliary phase, could suggest atypical form of focal nodular hyperplasia. A differential diagnosis is an adenoma. Biliary system: Gallbladder: Normal. Bile ducts: No intrahepatic or extrahepatic biliary dilation. Pancreas: Pancreas is normal morphology and signal intensity. No focal lesions seen. No focal lesions identified in the pancreas. Pancreatic duct: Pancreatic duct is nondilated. Retroperitoneum Kidneys: Normal bilateral kidneys. Adrenals: Unremarkable. Lymph nodes: No significantly enlarged retroperitoneal or mesenteric lymph node enlargement. Blood vessels: Aorta and inferior vena cava are unremarkable. Gastrointestinal: Stomach and visualized small bowel loops and colon are unremarkable. Other findings: None. Procedure Note Karine Lam MD - 03/30/2025 PROCEDURE: MRI ABDOMEN WWO CONTRAST, DATE/TIME OF EXAM: 03/27/2025 8:09 AM, LOCATION [facility] INDICATION: R16.0: Liver mass, left lobe ADDITIONAL CLINICAL INFORMATION: Ordering Provider Reason For Exam: Assess FNH/adenoma size change Technologist Note: Additional: COMPARISON: Abdominal MRI from 07/11/2024 TECHNIQUE: Noncontrast followed by multiphasic contrast-enhanced MRI examination of was performed using routine multiplanar sequences. MRCP: None. CONTRAST: 9 mL of Eovist was used as intravenous contrast. No procedure related complications seen. IMAGE QUALITY: Average diagnostic quality. Findings: Lower Chest: Lung bases are clear. No pleural effusion seen. Hepatobiliary system Liver morphology: Normal morphology, smooth outline and normal signal intensity. Steatosis: There is moderate diffuse hepatic steatosis. Spleen: Normal. Normal splenic signal intensity. Ascites: None. Focal liver lesions Unchanged hyperenhancing mass in hepatic segment 4A/4B seen on series 25 image 41 measuring 4.7 cm. The mass retains contrast on thehepatobiliary phase, most compatible with a focal nodular hyperplasia. Other masses of the liver are unchanged or slightly decreased in size,for example mass within hepatic segment 8 and series 25 image 17 measuring 1 cm, in hepatic segment 5 on series 25 image 46 measuring 1.4 cm(previously 2 cm) and hepatic segment 6 on series 25 image 44 measuring 7 mm. Previously seen small 3 mm mass seen in segment 8 is not identified onthis exam. The smaller lesions do not retain (or faintly enhancing at the periphery) contrast on the hepatobiliary phase, could suggest atypicalform of focal nodular hyperplasia. A differential diagnosis is an adenoma. Biliary system: Gallbladder: Normal. Bile ducts: No intrahepatic or extrahepatic biliary dilation. Pancreas: Pancreas is normal morphology and signal intensity. No focal lesions seen. No focal lesions identified in the pancreas. Pancreaticduct: Pancreatic duct is nondilated. Retroperitoneum Kidneys: Normal bilateral kidneys. Adrenals: Unremarkable. Lymph nodes: No significantly enlarged retroperitoneal or mesentericlymph node enlargement. Blood vessels: Aorta and inferior vena cava are unremarkable. Gastrointestinal: Stomach and visualized small bowel loops and colon are unremarkable. Other findings: None. Impression: 1. Focal nodular hyperplasia in hepatic segment 4A/4B measuring 4.7 cm remains unchanged. 2. Multiple smaller hepatic masses measuring up to 1.4 cm, are slightly decreased in size or unchanged. These masses do not retain contrast onthe hepatobiliary phase, these lesions could be atypical form of FNH. Differential diagnosis is an adenoma. Follow-up in 12-18 months can be helpful for assessment of stability. 3. Moderate hepatic steatosis. > Dictated by Ramos Chan D.O. - Diagnostic Medical Supply Technician. I, Karine Lam MD have personally reviewed and interpreted this examination/study. > Interpreting Provider: Karine Lam MD on :41 AM Coreen Leon MD MR ORDERABLES Final R esult from Last 3 Months Insurance [facility] Member Subscriber Plan / Payer (Ef fective 2024-Present) Name:Maddie Renee Member ID:Not on file Relation to Subscriber:Self Name:Maddie Renee Payer ID:[id number] (NAIC) Type:LookFlowO Address: [place] [id number] [place] [phone] [place] [phone]
--- OUTSIDE RECORDS SUMMARY | 2025-04-01 06:46 | XMS_ITS ---
Author Organization [facility] Address [address] [address] Care Team Providers Care Ship Scaler Name Role Phone Chyna Watts Primary Care [...] 1 days 09/03/2024 Active Ergocalciferol 1.25 MG (67299 UT) 1 capsule Orally for 30 day(s) 10/08/2024 Active Pantoprazole Sodium 40 MG 1 tab(s) orall y once a day Active Spironolactone 100 MG 1 tab(s) orally on ce a day Active Vitamin B-12 1000 MCG 1 tab(s) orally on ce a day Active Problems Problem Type SNOMED Code ICD Code Onset Dates Problem Status W/U Status Risk Notes Problem Hypothyroidism (05886179) Hypothyroidism, unspecified (E03.9) Active confirmed Vital Signs Blood pressure systolic 119 mm Hg 10/08/20 24 Blood pressure diastolic 87 mm Hg 024 Heart Rate 89 /min 10/08/2024 Height 63 in 10/08/2024 Weight 197.8 lbs 10/08/2024 BMI 35.03 kg/m2 10/08/2024 SPO2: 99% Encounters Encounter Location Date Provider Diagnosis [facility], [facility] - Chyna Watts [address] [place] [address] 10/08/2024 Chnya Watts Vitamin D deficiency , unspecified E55.9 [...] examination and/or evaluation, counseling and educating the patient/family/manager career, ordering medications, tests, or procedures, referring and communicating with other health manager career, documenting clinical information in the electronic or other health record, independently interpreting results and communicating results to the patient/family/manager career and care coordinating patient plan. Patient alert [...] for 30 day(s) 10/08/2024 Ergocalciferol 1.25 MG (58690 UT) 1 caps ule Orally for 30 [...] procedures, referring and communicating with other health manager career, documenting clinical information in the electronic or [...] * Maddie RENEEDOB: [birth year] (29 yo F)Acc No.[id number]:10/08/2024 Progress Notes Patient: Maddie CANO Provider: Patt Watts MD :1995 A ge:29 Y S ex:Female Date:10/08/2024 Address:[address] [place] [address] Subjective: * Chief Complaints: * 1 . [...] Date & Time - 09/22/2024 08:27 AM)?ValueReference Range?[id number]- ng/dL ???Lab:ACTH, PLASMA (Order Date - 09/10/2024) (Collection Date & Time - 09/10/2024 09:01 AM)?ValueReference Range?ACTH, [id number] - pg/mL ???Lab:TESTOSTERONE, FREE (DIALYSIS) AND TOTAL,MS (Order Date - 09/10/2024) (Collection Date & Time - 09/10/2024 09:01 AM)?ValueReference Range ?TESTOSTERONE, TOTAL, UT190-38 - ng/dL?TESTOSTERONE, FREE3.90.1- 6.4 - pg/mL ???Lab:TSH [...] - Thousand/uL?RED BLOOD CELL COUNT4.743.80-5.10 - Million/uL ?QZOUOYODOI25.411.7-15.5 - g/dL?WIACMIJEJI38.635.0-45.0 - % ?MCV81.480.0-100.0 - fL?MCH26.2L27.0-33.0 - pg?MCHC32.1 32.0-36.0 - g/dL?RDW14.511.0-15.0 - %?PLATELET VQNGQ274327-099 - Thousand/uL?NBOEKDRSLTU54.8- %?ABSOLUTE UYLQVGEMKBB92807791-3989 - cells/uL?ZPNEQRAUBXP69.1- %?ABSOLUTE ZYAFXPIYMDJ2595904-0647 - cells/uL?MONOCYTES6.1- %?ABSOLUTE KBNRMOBUT063187-221 - cells/uL ?EOSINOPHILS0.5- %?ABSOLUTE FHVKWDNZZVC0572-959 - cells/uL ?BASOPHILS0.5- %?ABSOLUTE FIPLAGKDF798-177 - cells/uL?MPV 9.57.5-12.5 - fL ???Lab:ADDIS IFA [...] Date & Time - 09/10/2024 09:01 AM)?ValueReference Range?KNZYPOQ5470-47 - mg/dL?UREA NITROGEN (BUN)127-25 - mg/dL?CREATININE0.820.50-0.96 - mg/dL?BUN/CREATININE RATIOSEE NOTE:6-22 - (calc)?TKAYJF508671- 146 - mmol/L?POTASSIUM4.33.5-5.3 - mmol/L?BKWOHORO81692-941 - mmol/L?CARBON KMZKYSM5138-33 - mmol/L?CALCIUM9.48.6-10.2 - mg/dL ?PROTEIN, TOTAL6.76.1-8.1 - g/dL?ALBUMIN4.33.6-5.1 - g/dL ?GLOBULIN2.41.9-3.7 - g/dL (calc)?ALBUMIN/GLOBULIN RATIO1.81.0-2.5 - (calc)?BILIRUBIN, TOTAL0.70.2-1.2 - mg/dL?ALKALINE PHOSPHATASE 515V31-818 - U/L?EBT1063-02 - U/L?MJJ59X1-49 - U/L?EGFR99> OR = 60 - mL/min/1.73m2 ???Lab:FERRITIN (Order Date - 09/10/2024) (Collection Date & Time - 09/10/2024 09:01 AM)?ValueReference Range?ODIOKEPJ42F11-488 - ng/mL ???Lab:RHEUMATOID FACTOR (Order Date - 09/10/2024) (Collection Date & Time - 09/10/2024 09:01 AM)?ValueReference Range?RHEUMATOID FACTOR<10<14 - IU/mL ???Lab:VITAMIN B12/FOLATE, SERUM PANEL (Order Date - 09/10/2024) (Collection Date & Time - 09/10/2024 09:01 AM)?ValueReference Range?FOLATE, SERUM4.9L- ng/mL?VITAMIN [id number] - pg/mL ???Lab:FSH (Order Date - 09/10/2024) (Collection Date & Time - 09/10/2024 09:01 AM)?ValueReference Range?FSH7.3- mIU/mL ???Lab:IRON AND TOTAL IRON BINDING CAPACITY (Order Date - 09/10/2024) (Collection Date & Time - 09/10/2024 09:01 AM)?ValueReference Range ?IRON, [id number] - mcg/dL?IRON BINDING [id number] - mcg/dL (calc)?% CZNEUVKRHD4L37-43 - % (calc) ???Lab:INSULIN (Order Date - 09/10/2024) (Collection Date & Time - 09/10/2024 09:01 AM)?ValueReference Range?GQIIRKE20.0H- uIU/mL ???Lab:PTH, INTACT AND CALCIUM (Order Date 09/10/2024) (Collection Date & Time - 09/10/2024 09:01 AM)?ValueReference Range?CALCIUM9.48.6-10.2 - mg/dL?PARATHYROID HORMONE, HQOERY4114-72 - pg/mL ???Lab:ESTRADIOL (Order - 09/10/2024) (Collection Date & Time - 09/10/2024 09:01 AM)?ValueReference Range?TFTWCDYFZ07- pg/mL ???Lab:T3, FREE (Order 09/10/2024) (Collection Date & Time - 09/10/2024 09:01 AM)?ValueReference Range?T3, FREE3.52.3-4.2 - pg/mL ???Lab:SED RATE BY MODIFIED WESTERGREN (Order - 09/10/2024) (Collection Date & Time - 09/10/2024 09:01 AM)?ValueReference Range?SED RATE BY XJZYJPNF65< OR = 20 - mm/h ???Lab:C-REACTIVE PROTEIN (Order - 09/10/2024) (Collection Date & Time - 09/10/2024 09:01 AM)?ValueReference Range?C-REACTIVE YXJYRUV54.8H <8.0 - mg/L ???Lab:LIPID PANEL (Order Date - 09/10/2024) (Collection Date & Time - 09/10/2024 09:01 AM)?ValueReference Range?PYDNUVXONOTXS28<150 - mg/dL?CHOLESTEROL, UMPRJ647<200 - mg/dL?HDL MWUQDZIFIWS85> OR = 50 - mg/dL?LDL-EEFUJXZJJVR97- mg/dL (calc)?CHOL/HDLC RATIO2.7<5.0 - (calc)?NON-HDL GDZSPUCISAC19<130 - mg/dL (calc) ???Lab:MAGNESIUM (Order Date - 09/10/2024) (Collection Date & Time - 09/10/2024 09:01 AM)?ValueReference Range?MAGNESIUM1.81.5-2.5 - mg/dL ???Lab:VITAMIN D, 25-HYDROXY, LC/MS/MS (Order Date - 09/10/2024) (Collection Date & Time - 09/10/2024 09:01 AM)?ValueReference Range?VITAMIN D, 25-OH, [id number] - ng/mL * Examination: G eneral Examination: [...] exercise 2. Cortisol levels and possible cyclical [place]'s syndrome- High-end alberto zone cortisol test resultPlan:- [...] procedures, referring and communicating with other health manager career, documenting clinical information in the electronic or other health record, independently interpreting results and communicating results to the patient/family/caregiver and care coordinating patient plan. Patient alert and oriented x 4 and aware of discussion noted above and in agreeance to plan in management of hypothyroidism, insulin resistance,prediabetes, obesity/weight management, vit D def and MICHAEL. * Procedure Codes: 9 9401 P/M [employer], INDIV 15 MIN * Follow Up: 3 Months (Reason: labwork) * Billing Information: * Visit Code: 51080 Office Visit, Est Pt., Level 4. * Procedure Codes: 70706 P/M [employer], INDIV 15 MIN. * UTIVE CHAIRMAN Sign off status: Completed Addendum: * true * Provider: Patt Watts MD Date: 12/09/2023 Generated for Tim kang/Lien/Evgenyitting on: 0 04/01/2025 06:46 AM CDT History and Physical Notes * [...]
--- OUTSIDE RECORDS SUMMARY | 2025-04-01 06:46 | XMS_ITS | Encounter Summary ---
Author Organization [facility] Address [address] [place] [address] Care Team Providers Care Freezing Room Worker Name Role Phone Unavailable Primary Care Provider Unavailabl e Encounter Details Date Type Department Care Team (Late st Contact Info) Description 03/30/2025 Results Follow-Up [facility] [address] [place] [address] Shereen Stokes, RN Social History Tobacco Use Types Packs/Day Years Used Date Smoking Tobacco: Never Smokeless Tobacco: Never Comments No Sex and Gender Information Value Date Recorded Sex Assigned at Not on file Legal Sex Female 2:47 PM CDT Gender Identity Not on file Sexual Orientation Not on file documented as of this encounter Plan of Treatment Not on file documented as of this encounter Visit Diagnoses Not on filedocumented in this encounter
--- OUTSIDE RECORDS SUMMARY | 2025-04-01 06:46 | XMS_ITS | Clinical Summary ---
Author Organization [facility] Address [address] [place] [address] Care Team Providers Care Laundry Operator Wash Room Name Role Phone Unavailable Primary Care Provider [...] patient's age to complete this topic Insurance [facility] [id number]
--- OUTSIDE RECORDS SUMMARY | 2025-04-01 06:46 | XMS_ITS | Patient Health Record ---
Author Organization [employer] [facility] Address [address] [address] Care Team Providers Care Charger Tester Name Role Phone Chyna Watts Primary Care Provider Migration, Provider Unavailable Unavailable Allergies No Known Allergies Results Component Value Reference Range Notes COMPREHENSIVE METABOLIC PANE L Reviewed date:09/13/2024 09:29:03 AM Interpretation: Performing Lab:[facility], [address] [place], [address] Tan Benson MD Notes/Report: FASTING:YES FASTING: YES VITAMIN D, 25-HYDROXY, LC/MS /MS Reviewed date:09/13/2024 09:25:06 AM Interpretation: Performing Lab:[facility], [address] [place], [address] Tan Benson MD Notes/Report: FASTING:YES FASTING: YES ACTH, PLASMA Reviewed date:09/17/2024 07:58:52 PM Interpretation: Performing Lab:[facility], [address] [facility] , [place], [address] José Miguel Cabrera M.D.,PhD Notes/Report: FASTING:YES FASTING: YES ADDIS IFA SCREEN W/REFL TO TIT ER AND PATTERN, IFA Reviewed date:09/13/2024 09:28:17 AM Interpretation: Performing Lab:[facility], [address], [place], [address] Tan Benson MD Notes/Report: FASTING:YES FASTING: YES T3, FREE Reviewed date:09/13/2024 09:25:21 AM Interpretation: Performing Lab:[place], [facility], [address], [place], [address] Tan Benson MD Notes/Report: FASTING:YES FASTING: YES CORTISOL, TOTAL Reviewed date:09/13/2024 09:27:51 AM Interpretation: Performing Lab:[facility], [facility], [address], [place], [address] Tan Benson MD Notes/Report: FASTING:YES FASTING: YES ESTRADIOL Reviewed date:09/13/2024 09:25:39 AM Interpretation: Performing Lab:[facility], [address], [place], [address] Tan Benson MD Notes/Report: FASTING:YES FASTING: YES RHEUMATOID FACTOR Reviewed date:09/13/2024 09:28:09 AM Interpretation: Performing Lab:[facility], [address], [place], [address] Tan Benson MD Notes/Report: FASTING:YES FASTING: YES C-REACTIVE PROTEIN Reviewed date:09/13/2024 09:28:00 AM Interpretation: Performing Lab:[facility], [address], [place], [address] Tan Benson MD Notes/Report: FASTING:YES FASTING: YES FERRITIN Reviewed date:09/13/2024 09:27:29 AM Interpretation: Performing Lab:[facility], [address], [place], [address] Tan Benson MD Notes/Report: FASTING:YES FASTING: YES FSH Reviewed date:09/13/2024 09:27:20 AM Interpretation: Performing Lab:[facility], [address], [place], [address] Tan Benson MD Notes/Report: FASTING:YES FASTING: YES HEMOGLOBIN A1c Reviewed date:09/13/2024 09:24:16 AM Interpretation: Performing Lab:[facility], [address] , [place], [address] SerenaPastora Benson Notes/Report: FASTING:YES FASTING: YES INSULIN Reviewed date:09/13/2024 09:27:07 AM Interpretation: Performing Lab:[facility], [address], [place], [address] Tan Benson MD Notes/Report: FASTING:YES FASTING: YES MAGNESIUM Reviewed date:09/13/2024 09:29:50 AM Interpretation: Performing Lab:[facility], [address], [place], [address] Tan Benson MD Notes/Report: FASTING:YES FASTING: YES CBC (INCLUDES DIFF/PLT) Reviewed date:09/13/2024 09:28:33 AM Interpretation: Performing Lab:[facility], [address], [place], [address] Tan Benson MD Notes/Report: FASTING:YES FASTING: YES VITAMIN B12/FOLATE, SERUM PA JOHNNA Reviewed date:09/13/2024 09:25:30 AM Interpretation: Performing Lab:[facility], [address], [place], [address] Tan Benson MD Notes/Report: FASTING:YES FASTING: YES PROGESTERONE Reviewed date:09/13/2024 09:26:42 AM Interpretation: Performing Lab:[facility], [address], [place], [address] Tan Benson MD Notes/Report: FASTING:YES FASTING: YES IRON AND TOTAL IRON BINDING CAPACITY Reviewed date:09/13/2024 09:29:42 AM Interpretation: Performing Lab:[facility], [address], [place], [address] Tan Benson MD Notes/Report: FASTING:YES FASTING: YES LIPID PANEL Reviewed date:09/13/2024 09:29:58 AM Interpretation: Performing Lab:[facility], [address], [place], [address] Tan Benson MD Notes/Report: FASTING:YES FASTING: YES SED RATE BY MODIFIED DAKOTA SALVADOR Reviewed date:09/13/2024 09:28:40 AM Interpretation: Performing Lab:[place], [facility], [address], [place], [place], [address] Tan Benson MD Notes/Report: FASTING:YES FASTING: YES T4, FREE Reviewed date:09/13/2024 09:26:27 AM Interpretation: Performing Lab:[place], [facility], [address], [place], [place], [address] Tan Benson MD Notes/Report: FASTING:YES FASTING: YES PTH, INTACT AND CALCIUM Reviewed date:09/13/2024 09:30:07 AM Interpretation: Performing Lab:[place], [facility], [address], [place], [address] Tan Benson MD Notes/Report: FASTING:YES FASTING: YES TSH Reviewed date:09/13/2024 09:25:46 AM Interpretation: Performing Lab:[facility], [address], [place], [place], [address] Tan Benson MD Notes/Report: FASTING:YES FASTING: YES TESTOSTERONE, FREE (DIALYSIS ) AND TOTAL,MS Reviewed date:09/17/2024 07:59:00 PM Interpretation: Performing Lab:[facility], [facility], [address] [place] [address], [address], [place], [address] Gracie Antunez MD,PhD Notes/Report: FASTING:YES FASTING: YES TESTOSTERONE, TOTAL, MS 21 2-45 ng/dL For additional information, please refer to [email or web address]/faq/TWR947 (This link is being provided for informational/educational purposes only.) (Note) This test was developed and its analytical performance characteristics have been determined by [employer]. It has not been cleared or approved by the FDA. This assay has been validated pursuant to the CLIA regulations and is used for clinical purposes. TESTOSTERONE, FREE 3.9 0.1-6.4 pg/mL (Note) This test was developed and its analytical performance characteristics have been determined by [employer]. It has not been cleared or approved by the FDA. This assay has been validated pursuant to the CLIA regulations and is used for clinical purposes. [facility] [address] [address],[address] [facility] [address] Gracie Antunez MD, PhD DEXAMETHASONE Reviewed date:10/03/2024 02:23:37 PM Interpretation: Performing Lab:[facility] [employer] [facility],, [address] [place], [address] Elizabeth Ortiz MD,PhD,SANKET Notes/Report: FASTING:YES FASTING: YES DEXAMETHASONE 398 Reference Ranges for Dexamethasone: Baseline: Less than 20 ng/dL 1 mg dexamethasone overnight: 180-550 ng/dL (8:00-10:00 AM) This test was developed and its analytical performance characteristics have been determined by [facility]. It has not been cleared or approved by FDA. This assay has been validated pursuant to the CLIA regulations and is used for clinical purposes. CORTISOL, TOTAL Reviewed date:09/23/2024 06:47:27 AM Interpretation: Performing Lab:[facility], [address] [place], [address] Tan Benson MD Notes/Report: FASTING:YES FASTING: YES DEXAMETHASONE Reviewed date:11/29/2024 02:54:01 PM Interpretation: Performing Lab:[facility],, [address] [place], [address] Elizabeth Ortiz MD,PhD,SANKET Notes/Report: FASTING:YES FASTING: YES DEXAMETHASONE 359 Reference Ranges for Dexamethasone: Baseline: Less than 20 ng/dL 1 mg dexamethasone overnight: 180-550 ng/dL (8:00-10:00 AM) This test was developed and its analytical performance characteristics have been determined by [facility]. It has not been cleared or approved by FDA. This assay has been validated pursuant to the CLIA regulations and is used for clinical purposes. CORTISOL, TOTAL Reviewed date:11/21/2024 10:14:59 AM Interpretation: Performing Lab:[facility], [address] [place], [address] Tan Benson MD Notes/Report: FASTING:YES FASTING: YES ACTH, PLASMA Reviewed date:11/29/2024 02:50:26 PM Interpretation: Performing Lab:[facility], [address], [place], [address] José Miguel Cabrera M.D.,PhD Notes/Report: MULTIPLE TESTING PRIORITIES; ROUTINE TESTING TO FOLLOW. URINE VOLUME: 2000 DHEA SULFATE Reviewed date:11/24/2024 11:28:33 AM Interpretation: Performing Lab:[facility], [address] [place], [address] Tan Benson MD Notes/Report: MULTIPLE TESTING PRIORITIES; ROUTINE TESTING TO FOLLOW. URINE VOLUME: 2000 CORTISOL, FREE, 24 HOUR URIN E Reviewed date:12/03/2024 03:00:58 PM Interpretation: Performing Lab:[facility],, [address] [place], [address] Elizabeth Ortiz MD,PhD,SANKET Notes/Report: SPLIT 11/23/2024 FROM [id number] URINE VOLUME: 1200/24 TOTAL VOLUME 1200 CORTISOL, FREE, URINE 26.1 4.0-50.0 mcg/24 h CORTISOL, FREE, URINE 16.6 Reference Range: ADULTS: 3.1-42.3 CREATININE, URINE 1.57 0.50-2.15 g/24 h This test was developed and its analytical performance characteristics have been determined by [facility]. It has not been cleared or approved by FDA. This assay has been validated pursuant to the CLIA regulations and is used for clinical purposes. CORTISOL, LC/MS, SALIVA, 2 S AMPLES Reviewed date:11/29/2024 03:51:23 PM Interpretation: Performing Lab:[facility],, [address] [place], [address] Elizabeth Ortiz MD,PhD,SANKET Notes/Report: SPLIT 11/23/2024 FROM [id number] URINE VOLUME: 1200/24 DRAW DATE 1 11/22/2024 DRAW TIME 1 0035 CORTISOL, SALIVA SAMPLE 1 <0.03 8-10 AM: 0.04-0.56 mcg/dL noon-2 PM: < OR = 0.21 mcg/dL 4-6 PM: < OR = 0.15 mcg/dL 10 PM-1 AM: < OR = 0.09 mcg/dL This test was developed and its analytical performance characteristics have been determined by [facility]. It has not been cleared or approved [...] analytical performance characteristics have been determined by [facility] [facility]. It has not been cleared or approved [...] once a day Active Ergocalciferol 1.25 MG (61003 UT) 1 capsule Orally weekly for 84 days Active Vitamin B-12 1000 MCG 1 tab(s) orally on ce a day Active Spironolactone 100 MG 1 tab(s) orally on ce a day Active Pantoprazole Sodium 40 MG 1 tab(s) orall y once a day Active Problems Problem Type SNOMED Code ICD Code Onset Dates Problem Status W/U Status Risk Notes Problem Vitamin D deficiency (04829400) Vitamin D deficiency, unspecified (E55.9) Active confirmed Problem Hypothyroidism (64266779) Hypothyroidism, unspecified (E03.9) Active confirmed Problem Obstructive sleep apnea syndrome (disorder) (75239643) Obstructive sleep apnea (adult) (pediatric) (G47.33) Active confirmed Problem Obesity (737672531) Obesity, unspecified (E66.9) Active confirmed Problem Irregular menstruation (95466611) Irregular menstruation, unspecified (N92.6) Active confirmed Vital Signs Heart Rate 86 /min 12/08/2024 Blood pressure diastolic 87 mm Hg 12/08/2024 Height 63 in 12/08/2024 Blood pressure systolic 122 mm Hg 12/08/2024 Weight 201.8 lbs 12/08/2024 BMI 35.74 kg/m2 12/08/2024 Encounters Encounter Location Date Provider Diagnosis [facility] [address] [place] [address] 09/19/2024 Provider Migration Obesity, unspecified E66.9 [facility] [address] [place] [address] 02/09/2025 [facility] [address] [place] [address] 09/03/2024 Chyna [email or web address] Obesity, unspecified E66.9 ; Other fatigue R53.83 ; Irregular menstruation, unspecified N92.6 ; Encounter for screening for lipoid disorders Z13.220 ; Vitamin D deficiency, unspecified E55.9 and Unspecified abdominal pain R10.9 [facility] [address] [place] [address] 10/08/2024 Chyna [email or web address] Vitamin D deficiency, unspecified E55.9 ; Obesity, unspecified E66.9 ; Insulin resistance, unspecified E88.819 ; Prediabetes R73.03 ; Iron deficiency E61.1 and Hypothyroidism, unspecified E03.9 [facility] [address] [place] [address] 12/08/2024 Chyna [email or web address] Hypothyroidism, unspecified E03.9 ; Vitamin D deficiency, [...] procedures, referring and communicating with other health healthcare sales representative, documenting clinical information in the electronic or [...] procedures, referring and communicating with other health healthcare sales representative, documenting clinical information in the electronic or [...] 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
--- OUTSIDE RECORDS SUMMARY | 2025-04-01 06:46 | XMS_ITS | Clinical Summary ---
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
--- OUTSIDE RECORDS SUMMARY | 2025-04-01 06:47 | XMS_ITS | Data Portability ---
Author Organization [facility] MARKUSMaria Elena Address [address] [place] [address] Assessment No assessment recorded. Plan of Treatment Reminders Order Date Submit Date Provider Last Modified By Organization Details Last Modified Time Details Appointments ANY 15 2024 10:00A M ELIZABETH Najera Not available Not available Not available Lab TSH + free T4, serum 2023 024 SHANTI Fernandez, [address], [place], [address], 02/10/2024 12:36:37 ADDIS (antinucl ear antibodie s) screen, serum 2023 024 SHANTIYUKO Fernandez, [address], [address], [place], [address], 02/10/2024 12:36:37 CMP, serum or plasma 2023 024 SHANTI Fernandez, [address], [address], [place], [address], 02/10/2024 12:36:38 amylase + lipase, serum 2023 024 SHANTI Fernandez, [address], [address], [place], [address], 02/10/2024 12:36:41 CBC w/ auto diff 2023 024 SHANTI Fernandez, [address], [address], [place], [address], 02/10/2024 12:36:39 lipid panel, serum 2023 024 [facility], [address], [place], [address], 02/10/2024 12:36:38 rf (rheumato id factor) + anti-ccp abs, serum 2023 024 VIRGIL [facility], [address], [place], [address], 02/10/2024 12:36:36 erythrocy te sedimenta tion rate by westergre n method 2023 024 [facility], [address], [place], [address], 02/10/2024 12:36:40 C reactive protein, QN, serum or plasma 2023 024 [facility], [address], [address], [place], [address], 02/10/2024 12:36:40 HbA1c (hemoglob in A1c), blood 2023 024 [facility], [address], [place], [address], 02/10/2024 12:36:39 Referral None recorded. Procedures home sleep testing (PROC) [address] [facility], [address] [facility], [place], [address], 03/30/2025 08:47:52 Surgeries None recorded. Imaging RF, upper gastroint estinal tract, w/ contrast PO 2023 024 [facility], [address], [place], [address], 02/26/2024 18:17:20 US, abdomen, complete 2023 024 [facility], [address], [place], [address], 02/26/2024 17:06:02 Medication Orders hydroxyzi ne pamoate 25 mg capsule 2024 025 [facility] #[id number], [address] [facility], [place], [place], [id number], 02/04/2025 15:09:11 pantopraz ole 40 mg tablet,de layed release 2023 024 [facility] #[id number], [address] [facility], [place], [place], [id number], 02/05/2024 15:31:06 atorvasta tin 10 mg tablet 2023 024 [facility] #[id number], [address] [facility], [place], [place], [id number], 02/05/2024 15:33:54 Patient TargetsNo targets recorded. Patient Instructions Encounter Date Encounter Id Patient Instructions Last Modified By Organization Details Last Modified Time 02/04/2025 [id number] A healthy lifestyle: care instructions [email or web address] Not available 02/04/2025 15:07:11 Reason for Referral None Reported. Results Created Date Observation Date Name Description Value Unit Range Abnormal Flag Note LastModifiedBy Organization Detail LastModifiedTime 02/08/2002/09/2024 RHEUM ATOID ARTHR ITIS PROFI LE rheumatoid factor (rf) <10.0 IU/mL <14.0 Not Available [facility] ([facility]) [address] [facility] [place] [facility], [place], [address], 02/10/2024 12:36:36 02/08/20 24 02/10/2024 RHEUM ATOID ARTHR ITIS PROFI LE anti-ccp Ab, IgG/IgA 2 units 0-19 Negat rolan <20 Weak posit rolan 20 - 39 Moder ate posit rolan 40 - 59 Stron g posit rolan >59 Not Available [facility] ([facility]) [address] [facility] [place], [address], 02/10/2024 12:36:36 02/08/20 24 02/10/2024 ANTIN UCLEA R AB MULTI PLEX RFX 9 ADDIS direct Negati ve negati ve Not Available [facility] ([facility]) [address] [facility] [place], [address], 02/10/2024 12:36:37 02/08/20 24 02/09/2024 TSH+F REE T4 TSH 2.160 uIU/m L 0.450- 4.500 Not Available [facility] ([facility]) [address] [facility] [place], [address], 02/10/2024 12:36:37 02/08/20 24 02/09/2024 TSH+F REE T4 T4,free(dire ct) 1.12 NG/dL 0.82-1 .77 Not Available [facility] ([facility]) [address] [place], [address], 02/10/2024 12:36:37 02/08/20 24 02/09/2024 LIPID PANEL cholesterol, total 210 mg/dL 100-19 9 above high normal Not Available [facility] ([facility]) [address] [place], [address], 02/10/2024 12:36:38 02/08/20 24 02/09/2024 LIPID PANEL triglyceride s 155 mg/dL 0-149 above high normal Not Available [facility] ([facility]) [address] [place], [address], 02/10/2024 12:36:38 02/08/20 24 02/09/2024 LIPID PANEL HDL cholesterol 66 mg/dL >39 Not Available [facility]) [address] [place], [address], 02/10/2024 12:36:38 04/06/20 24 02/09/2024 LIPID PANEL VLDL cholesterol jae 27 mg/dL 5-40 Not Available [facility] ([facility]) [address] [place], [address], 02/10/2024 12:36:38 02/08/20 24 02/09/2024 LIPID PANEL LDL chol calc ([facility]) 117 mg/dL 0-99 above high normal Not Available [facility] ([facility]) [address] [place], [address], 02/10/2024 12:36:38 02/08/20 24 02/09/2024 COMP. METAB OLIC PANEL (14) glucose 80 mg/dL 70-99 Not Available [facility] ([facility]) [address] [facility] [place] [facility], [place], [address], 02/10/2024 12:36:38 02/08/20 24 02/09/2024 COMP. METAB OLIC PANEL (14) BUN 11 mg/dL 6-20 Not Available [facility] ([facility]) [address] [place], [address], 02/10/2024 12:36:38 02/08/20 24 02/09/2024 COMP. METAB OLIC PANEL (14) creatinine 0.86 mg/dL 0.57-1 .00 Not Available [facility] ([facility]) [address] [place], [address], 02/10/2024 12:36:38 02/08/20 24 02/09/2024 COMP. METAB OLIC PANEL (14) eGFR 94 mL/mi n/1.7 3 >59 Not Available [facility] ([facility]) [address] [place], [address], 02/10/2024 12:36:38 02/08/20 24 02/09/2024 COMP. METAB OLIC PANEL (14) BUN/creatini ne ratio 13 9-23 Not Available [facility] ([facility]) [address] [facility] [place] [facility], [place], [address], 02/10/2024 12:36:38 02/08/20 24 02/09/2024 COMP. METAB OLIC PANEL (14) sodium 138 mmol/ L 134-14 4 Not Available [facility] ([facility]) [address] [facility] [place] [facility], [place], [address], 02/10/2024 12:36:38 02/08/20 24 02/09/2024 COMP. METAB OLIC PANEL (14) potassium 4.8 mmol/ L 3.5-5. 2 Not Available [facility] ([facility]) [address] [facility] [place], [address], 02/10/2024 12:36:38 02/08/20 24 02/09/2024 COMP. METAB OLIC PANEL (14) chloride 100 mmol/ L 96-106 Not Available [facility] ([facility]) [address] [facility] [place], [address], 02/10/2024 12:36:38 02/08/20 24 02/09/2024 COMP. METAB OLIC PANEL (14) carbon dioxide, total 23 mmol/ L 20-29 Not Available [facility] ([facility]) [address] [facility] [place], [address], 02/10/2024 12:36:38 02/08/20 24 02/09/2024 COMP. METAB OLIC PANEL (14) calcium 10.0 mg/dL 8.7-10 .2 Not Available [facility] ([facility]) [address] [facility] [place], [address], 02/10/2024 12:36:38 02/08/20 24 02/09/2024 COMP. METAB OLIC PANEL (14) protein, total 7.1 g/dL 6.0-8. 5 Not Available [facility] ([facility]) [address] [facility] [place], [address], 02/10/2024 12:36:38 02/08/20 24 02/09/2024 COMP. METAB OLIC PANEL (14) albumin 4.1 g/dL 4.0-5. 0 Not Available [facility] ([facility]) [address] [facility] [place] [facility], [place], [address], 02/10/2024 12:36:38 02/08/20 24 02/09/2024 COMP. METAB OLIC PANEL (14) globulin, total 3.0 g/dL 1.5-4. 5 Not Available [facility] ([facility]) [address] [facility] [place] [facility], [place], [address], 02/10/2024 12:36:38 02/08/20 24 02/09/2024 COMP. METAB OLIC PANEL (14) A/G ratio 1.4 1.2-2. 2 Not Available [facility] ([facility]) [address] [facility] [place] [facility], [place], [address], 02/10/2024 12:36:38 02/08/20 24 02/09/2024 COMP. METAB OLIC PANEL (14) bilirubin, total 0.6 mg/dL 0.0-1. 2 Not Available [facility] ([facility]) [address] [facility] [place] [facility], [place], [address], 02/10/2024 12:36:38 02/08/20 24 02/09/2024 COMP. METAB OLIC PANEL (14) alkaline phosphatase 140 IU/L 44-121 above high normal Not Available [facility] ([facility]) [address] [facility] [place] [facility], [place], [address], 02/10/2024 12:36:38 02/08/20 24 02/09/2024 COMP. METAB OLIC PANEL (14) AST (SGOT) 24 IU/L 0-40 Not Available [facility] ([facility]) [address] [facility] [place] [facility], [place], [address], 02/10/2024 12:36:38 02/08/20 24 02/09/2024 COMP. METAB OLIC PANEL (14) ALT (SGPT) 24 IU/L 0-32 Not Available [facility] ([facility]) [address] [facility] [place] [facility], [place], [address], 02/10/2024 12:36:38 02/08/20 24 02/09/2024 HEMOG LOBIN A1C hemoglobin A1C 5.6 % 4.8-5. 6 Predi abete s: 5.7 - 6.4 Diabe nestor: >6.4 Glyce curry contr ol for adult s with diabe nestor: <7.0 Not Available [facility] ([facility]) [address] [facility] [place] [facility], [place], [address], 02/10/2024 12:36:39 02/08/20 24 02/09/2024 CBC WITH DIFFE RENTI AL/PL ATELE T WBC 9.0 x10e3 /uL 3.4-10 .8 Not Available [facility] ([facility]) [address] [place], [address], 02/10/2024 12:36:39 02/08/20 24 02/09/2024 CBC WITH DIFFE RENTI AL/PL ATELE T RBC 5.16 x10e6 /uL 3.77-5 .28 Not Available [facility] ([facility]) [address] [place], [address], 02/10/2024 12:36:39 02/08/20 24 02/09/2024 CBC WITH DIFFE RENTI AL/PL ATELE T hemoglobin 14.1 g/dL 11.1-1 5.9 Not Available [facility] ([facility]) [address] [place], [address], 02/10/2024 12:36:39 02/08/20 24 02/09/2024 CBC WITH DIFFE RENTI AL/PL ATELE T hematocrit 42.8 % 34.0-4 6.6 Not Available [facility] ([facility]) [address] [facility] [place] [facility], [place], [address], 02/10/2024 12:36:39 02/08/20 24 02/09/2024 CBC WITH DIFFE RENTI AL/PL ATELE T MCV 83 fL 79-97 Not Available [facility] ([facility]) [address] [facility] [place] [facility], [place], [address], 02/10/2024 12:36:39 02/08/20 24 02/09/2024 CBC WITH DIFFE RENTI AL/PL ATELE T MCH 27.3 pg 26.6-3 3.0 Not Available [facility] ([facility]) [address] [facility] [place] [facility], [place], [address], 02/10/2024 12:36:39 02/08/20 24 02/09/2024 CBC WITH DIFFE RENTI AL/PL ATELE T MCHC 32.9 g/dL 31.5-3 5.7 Not Available [facility] ([facility]) [address] [facility] [place] [facility], [place], [address], 02/10/2024 12:36:39 02/08/20 24 02/09/2024 CBC WITH DIFFE RENTI AL/PL ATELE T RDW 13.0 % 11.7-1 5.4 Not Available [facility] ([facility]) [address] [place], [address], 02/10/2024 12:36:39 02/08/20 24 02/09/2024 CBC WITH DIFFE RENTI AL/PL ATELE T platelets 467 x10e3 /uL 150-45 0 above high normal Not Available [facility] ([facility]) [address] [place], [address], 02/10/2024 12:36:39 02/08/20 24 02/09/2024 CBC WITH DIFFE RENTI AL/PL ATELE T neutrophils 55 % notest ab. Not Available [facility] ([facility]) [address] [place], [address], 02/10/2024 12:36:39 02/08/20 24 02/09/2024 CBC WITH DIFFE RENTI AL/PL ATELE T lymphs 36 % notest ab. Not Available [facility] ([facility]) [address] [facility] [place] [facility], [place], [address], 02/10/2024 12:36:39 02/08/20 24 02/09/2024 CBC WITH DIFFE RENTI AL/PL ATELE T monocytes 7 % notest ab. Not Available [facility] ([facility]) [address] [facility], [place], [address], 02/10/2024 12:36:39 02/08/20 24 02/09/2024 CBC WITH DIFFE RENTI AL/PL ATELE T eos 1 % notest ab. Not Available [facility] ([facility]) [address] [facility] [place] [facility], [place], [address], 02/10/2024 12:36:39 02/08/20 24 02/09/2024 CBC WITH DIFFE RENTI AL/PL ATELE T basos 1 % notest ab. Not Available [facility] ([facility]) [address] [facility] [place] [facility], [place], [address], 02/10/2024 12:36:39 02/08/20 24 02/09/2024 CBC WITH DIFFE RENTI AL/PL ATELE T neutrophils (absolute) 5.0 x10e3 /uL 1.4-7. 0 Not Available [facility] ([facility]) [address] [place], [address], 02/10/2024 12:36:39 02/08/20 24 02/09/2024 CBC WITH DIFFE RENTI AL/PL ATELE T lymphs (absolute) 3.2 x10e3 /uL 0.7-3. 1 above high normal Not Available [facility] ([facility]) [address] [facility] [place] [facility], [place], [address], 02/10/2024 12:36:39 02/08/20 24 02/09/2024 CBC WITH DIFFE RENTI AL/PL ATELE T monocytes(ab solute) 0.6 x10e3 /uL 0.1-0. 9 Not Available [facility] ([facility]) [address] [facility] [place] [facility], [place], [address], 02/10/2024 12:36:39 02/08/20 24 02/09/2024 CBC WITH DIFFE RENTI AL/PL ATELE T eos (absolute) 0.1 x10e3 /uL 0.0-0. 4 Not Available [facility] ([facility]) [address] [facility], [place], [address], 02/10/2024 12:36:39 02/08/20 24 02/09/2024 CBC WITH DIFFE RENTI AL/PL ATELE T baso (absolute) 0.1 x10e3 /uL 0.0-0. 2 Not Available [facility] ([facility]) [address] [facility] [place] [facility], [place], [address], 02/10/2024 12:36:39 02/08/20 24 02/09/2024 CBC WITH DIFFE RENTI AL/PL ATELE T immature granulocytes 0 % notest ab. Not Available [facility] ([facility]) [address] [facility] [place] [facility], [place], [address], 02/10/2024 12:36:39 02/08/20 24 02/09/2024 CBC WITH DIFFE RENTI AL/PL ATELE T immature grans (abs) 0.0 x10e3 /uL 0.0-0. 1 Not Available [facility] ([facility]) [address] [facility], [place], [address], 02/10/2024 12:36:39 02/08/20 24 02/09/2024 SEDIM ENTAT ION RATE- IAN RGREN sedimentatio n rate-joanneerg madiha 25 mm/HR 0-32 Not Available [facility] ([facility]) [address] [facility], [place], [address], 02/10/2024 12:36:40 02/08/20 24 02/09/2024 C-DARÍO CTIVE PROTE IN, QUANT C-reactive protein, quant 8 mg/L 0-10 Not Available [facility] ([facility]) [address] [facility] [place] [facility], [place], [address], 02/10/2024 12:36:40 02/08/20 24 02/09/2024 KAVYA+L IPASE amylase 43 U/L 31-110 Not Available [facility] ([facility]) [address] [facility], [place], [address], 02/10/2024 12:36:41 02/08/20 24 02/09/2024 KAVYA+L IPASE lipase 36 U/L 14-72 Not Available [facility] ([facility]) [address] [facility], [place], [address], 02/10/2024 12:36:41 02/26/20 24 02/20/2024 US, abdom en, compl ete No observ ation record ed. [facility] [address], [place], [address], 02/27/2024 14:54:56 02/26/20 24 02/20/2024 RF, upper gastr ointe evert l tract , w/ contr ast PO No observ ation record ed. [facility] [address], [place], [address], 02/27/2024 14:54:56 05/04/20 24 05/04/2024 MRI, liver , w/wo contr ast No observ ation record ed. [facility] [address], [place], [address], 05/05/2024 10:52:05 05/26/20 24 05/20/2024 CT, chest , w/ contr ast No observ ation record ed. [facility] [address] [address], [place], [address], 05/26/2024 16:00:03 05/26/20 24 05/20/2024 CT, pelvi s, w/ contr ast No observ ation record ed. [facility] [address] [facility] [address], [place], [address], 05/26/2024 16:00:03 08/05/20 24 08/05/2024 CT, abdom en + pelvi s, w/ contr ast No observ ation record ed. [place] [id number] [facility] [address], [place], [address], 08/06/2024 13:56:27 03/17/20 25 03/02/2025 imagi ng/di agnos tic resul t No observ ation record ed. [facility] [address], [place], [address], 03/17/2025 15:55:03 Result Notes None recorded. Problems Name Problem SNOMED Code Status Onset Date Resolution Date Notes Provider Name and Address Organization Details Recorded Time Acid reflux 251326959 Active 2023 ELIZABETH Najera Attn: Pankaj michelle,[address] [place], [address], [place] - [facility] 4 19:55:53 Hyperlipide maldonado 90282187 Active 2023 ELIZABETH Najera Attn: Pankaj michelle,[address] [facility], [place], [address], [place] [facility] 4 19:55:55 Generalized anxiety disorder 89857320 Active 2023 ELIZABETH Najera Attn: Pankaj michelle,[address] [facility], [place], [address], [place] [facility] 4 19:55:57 Pain of multiple joints 02046775 Active 2023 ELIZABETH Najera Attn: Pankaj michelle,[address] [place], [place], [address] [place] [address] 2, [place] [facility] 4 19:56:01 Body mass index 30+ - obesity 671186077 Active 2024 Corinna Jerry [place] null, [place] [facility] 5 14:31:13 Positive screening for depression on PHQ-9 (Patient Health Questionnai re 9) 4640093160443 00 Active 2024 ELIZABETH Najera Attn: Pankaj michelle,[address] [place], [place], [address] [place] [address], [place] [facility] 5 13:21:53 Fatigue 33835000 Active 2024 ELIZABETH Najera Attn: Piperzaina g,[address] [place], [place], [address] [place] [address], [place] [facility] 5 13:21:54 Obesity 177271101 Active 2024 ELZIABETH Najera Attn: Pankaj g,[address] [place], [place], [address] [place] [address], [place] [facility] 5 13:22:01 Impaired glucose tolerance 7010315 Active 2024 ELIZABETH Najera Attn: Piperzaina g,[address] [place], [place], [address] [place] [address] 2, [place] [facility] 5 13:22:17 Hypothyroid ism 81015603 Active 2024 ELIZABETH Najera Attn: Piperzaina g,[address] [place], [place], [address] [place] [address] 2, [place] [facility] 5 13:22:29 Problem Notes None recorded. Medical Equipment None Reported. [...] TAKE 1 CAPSULE BY MOUTH EVERY DAY 2024 active Not Available Not Available Not Avai lable metformin ER 500 mg tablet,exte nded release 24 hr TAKE 1 TABLET BY MOUTH DAILY WITH THE EVENING MEAL active Not Available Not Available No t Available amoxicillin 875 mg-victoriau m clavulanate 125 mg tablet TAKE 1 [...] Available No t Available Vitals Date Recorded Systolic blood pressure Diastolic blood pressure Provider Name and Address Organization Details Last Updated DateTime 02/05/2024 118 mm[Hg] 80 mm[Hg] ELIZABETH Najera Attn: Accounting,[address] [place], [address], [facility] 02/05/2024 14:53:34 Date Recorded Body height Body mass index (BMI) Body weight Respiratory rate Oxygen saturation Oxygen saturation in Arterial blood by Pulse oximetry Heart rate Systolic blood pressure Diastolic blood pressure Provider Name and Address Organization Details Last Updated DateTime 4 160.02 cm 35.1 kg/m2 67711.2 9 g 18 /min 98 % 98 % 91 /min 124 mm[Hg] 98 mm[Hg] Corinna Jerry MA [facility] 14:26:59 Date Recorded Systolic blood pressure Diastolic blood pressure Provider Name and Address Organization Details Last Updated DateTime 02/04/2025 110 mm[Hg] 84 mm[Hg] ELIZABETH Najera Attn: Accounting,[address] [place], [address], [facility] 02/04/2025 15:06:58 Date Recorded Body height Body mass index (BMI) Body weight Respiratory rate Oxygen saturation Oxygen saturation in Arterial blood by Pulse oximetry Heart rate Systolic blood pressure Diastolic blood pressure Provider Name and Address Organization Details Last Updated DateTime 5 160.02 cm 35.4 kg/m2 55833.4 7 g 18 /min 98 % 98 % 106 /min 136 mm[Hg] 86 mm[Hg] Corinna Jerry MA [facility] 14:32:36 Social History Question Answer Notes LastModified by Organizat ion Details LastModified Time Tobacco Smoking Status Never Smoker Corinna Jerry MA null, [facility] 02/05/2024 14:24:39 Do You Have An Advance Directive? No Information n ot available 02/05/2024 Are You Blind Or Do [...] No Information not available 02/05/2024 Are You Deaf Or Do You Have [...] Been Provided? No Information not available 02/05/2024 Sex: Female Functional Status Question Answer Note LastModified by Organizat ion Details LastModified Time Do you use any illicit or recreational drugs? No Information not available 02/05/2024 Do you or have you ever used any other forms of tobacco or nicotine? No Information not available 02/05/2024 What is your level of alcohol consumption? Occasional Information not available 02/05/2024 Are you currently employed? Yes Information not available 02/04/2025 Are you able to care for yourself? [...] Immunizations Vaccine Type Date Status Note Provider Nam e and Address Organization Details Recorded Time Influenza, split virus, quadrivalent, PF 08/25/2020 completed Corinna Jerry MA [facility] [place] [facility] 02/04/2025 14:30:56 Past Encounters Encounter ID Performer Location Encounter Start Date Encounter Closed Date Diagnosis/Indication Diagnosis SNOMED-CT Code Diagnosis ICD10 Code Diagnosis Note [id number] Ramos Mujica MD [facility] [address] [place] [address] 02/05/2024 13:54:14 02/05/2024 14:57:59 Acid reflux 690972072 K21.9 d/c OTC omeprazole and trial of pantoprazo le 40mg daily. . check UGI series. Upper abdominal pain 831 34556 R10.10 check u/s abdomen and labs including amylase and lipase. Hyperlipidemia 72368180 E78.5 due for fasting lipids. refill low dose statin. Diabetes m ellitus screening 767406864 Z13.1 screening A1c due Thyroid di sorder screening 612947545 Z13.29 routine thyroid screening ordered. Eruption 933380574 R21 ROS positive for facial rash often now. [employer] on. check ADDIS w/multiple x panel Pain of mu ltiple joints 06138940 M25.50 ROS reports: sporadic episodes of joint pains. check RA panel and CRP and ESR. Vomiting 563259732 R11.1 0 she calls them attacks ; even had them in middle school. await UGI testing results. Generalize d anxiety disorder 67893555 F41.1 stable on fluoxetine 20mg daily. [id number] Ramos Mujica MD [facility] [address] [place] [address] 02/04/2025 14:09:23 02/04/2025 15:11:42 Positive screening for depression on PHQ-9 (Patient Health Questionnaire 9) 2422871577 81722 Z13.31 Patient scored an 8 on screening today. She is stable on her fluoxetine 20 mg daily Body mass index 30+ - obesity 722872060 Z68.35 BMI is 35.4 Obesity 389560229 E66.9 discussed healthy diet, exercise, controllin g carbohydra nestor and added sugars in the diet Fatigue 72234253 R53.83 Home sleep study evaluation as stated above Adult [facility] th examination 101923331 Z00.00 Annual wellness exam completed Sleep apnea 52019881 G47 .30 High suspicion for sleep apnea with severe fatigue and daytime somnolence refer for home sleep study Impaired g lucose tolerance 4988649 R73.03 5.7%a1c. follows with dr. sabrina dean. On metformin therapy Generalize d anxiety disorder 46204758 F41.1 stable on fluoxetine 20mg daily. trial of hydroxyzin e 25mg cap Hyperlipidemia 50417025 E78.5 due for fasting lipids. refill low dose statin. Acid reflux 659477553 K2 1.9 d/c OTC omeprazole and trial of pantoprazo le 40mg daily. . check UGI series. Hypothyroidism 42807142 E03.9 Patient also follows with Dr. Sabrina [...] Leo Member ID Guarantor Name 02/05/2024 1 [facility] [id number] Maddie Santana [id number] Maddie Renee 02/04/2025 1 [facility] [id number] [facility] [id number] Maddie [facility] Notes Date Note Type Note Provider Name and Address Organization Details Recorded Time 02/05/20 24 text/htm l hx of colonoscopy 2022, all normal Dr. Ridley. ELIZABETH Najera Attn: Accounting,[address], [place], [address], [facility] 02/29/2024 20:16:46 02/05/20 25 text/htm [...] Dr. [place]. ELIZABETH Najera Attn: Accounting,[address], [place], [address], [facility] - [facility] 02/11/2025 13:23:06 OBGyn Episode No OBEpisode recorded.
--- OUTSIDE RECORDS SUMMARY | 2025-04-01 06:47 | XMS_ITS | Referral Summary ---
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
--- OUTSIDE RECORDS SUMMARY | 2025-04-01 06:47 | XMS_ITS ---
[facility] Address [address] [address] Care Team Providers Care Corporate Real Estate Specialist Name Role Phone Chyna Watts Primary Care [...] day Active Vitamin D (Ergocalciferol) 1.25 MG (60259 UT) TAKE ONE CAPSULE BY MOUTH ONCE WEEKLY for 28 Active Atorvastatin Calcium 10 MG 1 tab(s) oral ly once a day Active Ergocalciferol 1.25 MG (54218 UT) 1 capsule Orally weekly for 84 [...] Status Risk Notes Problem Obstructive sleep apnea (adult) (pediatric) (G47.33) Active confirmed Vital Signs Blood pressure systolic 122 mm Hg 12/08/19 25 Blood pressure diastolic 87 mm Hg 025 Heart Rate 86 /min 12/08/2024 Height 63 in 12/08/2024 Weight 201.8 lbs 12/08/2024 BMI 35.74 kg/m2 12/08/2024 Encounters Encounter Location Date Provider Diagnosis [facility], [facility] - Chyna Watts [address] [place] [address] 12/08/2024 Chyna Watts Hypothyroidism, unspecified E03.9 ; [...] o 12/08/2024 Other Assessment and Plan: Suspected Mapleville's SyndromePatient has undergone multiple tests for Mapleville's syndrome with inconclusive results, including saliva tests [...] procedures, referring and communicating with other health acute care assistant, documenting clinical information in the electronic or [...] Date Stop Date Notes Ergocalciferol 1.25 MG (34993 UT) 1 caps ule Orally weekly for 84 days 12/08/2024 Treatment Notes Assessment Notes Other Assessment and Plan: Suspected Mapleville's SyndromePatient has undergone multiple tests for Carlos's [...] medications, with recent high readings noted around [place].Suspected adrenal issue may be contributing to hypertension. [...] procedures, referring and communicating with other health acute care assistant, documenting clinical information in the electronic or [...] * Maddie RENEEDOB: [birth year] (29 yo F)Acc No.[id number]:12/08/2024 Progress Notes Patient: Maddie CANO Provider: Patt Watts MD :1995 A ge:29 Y S ex:Female Date:12/08/2024 Address:[address] [place], [place] [id number] Subjective: * Chief Complaints: * 1 . 3 month f/u laruence. * HPI: I nterval Hx: 29 yo [...] also reports issues with hypertension, particularly around [place]. Current medications include hydralazine, amlodipine, metoprolol, and [...] orning stiffness. n o t endinitis. n iens pain y es,?neck stiffness. n o b [...] , Taking Vitamin D (Ergocalciferol) 1.25 MG (52218 UT) Capsule TAKE ONE CAPSULE BY MOUTH [...] 3. O thers Notes:Assessment and Plan: Suspected Carlos's SyndromePatient has undergone multiple tests for Mapleville's syndrome with inconclusive results, including saliva tests [...] medications, with recent high readings noted around [place].Suspected adrenal issue may be contributing to hypertension. [...] procedures, referring and communicating with other health acute care assistant, documenting clinical information in the electronic or [...] ? 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 * Procedure Codes: 93927 P/M INDUSTRIAL MAINTENANCE ELECTRICIAN, INDIV 15 MIN. * ITY PROSPECTOR Sign off status: Completed true * Provider: Patt Watts MD Date: 0 12/08/2024 Generated for Tim kang/Lien/eTransmitting on: 0 04/01/2025 06:47 AM CDT History and Physical Notes * [...]
--- OUTSIDE RECORDS SUMMARY | 2025-04-01 06:47 | XMS_ITS | Patient Health Record ---
Author Organization [facility] Address [address] [facility] [address] [address] Support Name Relationship Address Phone Maddie Renee Guarantor Unknown Reason For Referral No Information Plan Of Treatment No Information Insurance Providers Payer Name Payer Address Payer Phone Subscriber Number Group Number Insured Name Patient Relationship to Insured Coverage Start Date Coverage End Date [employer] Access PPO [address] [place] [address] [id number] Maddie Renee [facility]ly [facility] Child - Insured has Financial Responsibility
== END 2025-04-01 06:42 | disposition home or self-care (01) ==
PROVIDERS: PCP Physician Assistant; Visit Provider Internal Medicine Endocrinology, Diabetes & Metabolism
DX: E23.7 Disorder of pituitary gland, unspecified (principal)
CPT/HCPCS: 70553; A9577

== ENCOUNTER 2025-08-23 15:47 | Outpatient (CLI) | payer OTHER, SELFPAY ==
--- NOTE | ~2025-08-23 | US_ITS ---
EXAMINATION: US transvaginal INDICATION: Amenorrhea Comparison:No prior studies for comparison. TECHNIQUE: Multiple transabdominal and endovaginal sonographic images of the pelvis performed. FINDINGS: The uterus measures 6.2 x 3.3 x 4.3 cm. The endometrial complex measures 17 mm. Endometrium is heterogeneous. There is an 8 mm nabothian cysts. The right ovary measures 2.2 x 2.3 x 1.9 cm and the left ovary measures 2.1 x 2 x 1.8 cm. There are small follicles in each ovary. Normal doppler signal in both ovaries. There is no free fluid in the pelvis. There are no abnormal masses seen on either side. IMPRESSION: 1. Thickened heterogeneous endometrium measuring 1.7 cm. Reviewed, dictated and finalized at location O.
== END 2025-08-23 15:48 | disposition home or self-care (01) ==
PROVIDERS: PCP Obstetrics & Gynecology Gynecology; Visit Provider Obstetrics & Gynecology Gynecology
DX: R93.89 Abnormal findings on diagnostic imaging of other specified body structures (principal)
CPT/HCPCS: 76830